=== PATIENT | female | born 1930 | race Caucasian/White ===

== ENCOUNTER 2016-11-22 | Outpatient (CLI) | payer MEDICARE, BC | END 2016-11-22 08:59 | disposition critical access hospital (66) | CPT/HCPCS: A0425; A0427 ==

== ENCOUNTER 2016-11-22 09:25 | Emergency (ER) | payer MEDICARE, BC ==
[2016-11-22] MEDS ORDERED: HYDROcod/ACETAM 5/325 MG TABLET PO STA (11:46)
== END 2016-11-22 13:20 | disposition home or self-care (01) ==
DX: S70.02XA Contusion of left hip, initial encounter (principal); W01.0XXA Fall on same level from slipping, tripping and stumbling without subsequent striking against object, initial encounter; Y92.012 Bathroom of single-family (private) house as the place of occurrence of the external cause; R32 Unspecified urinary incontinence; Z96.642 Presence of left artificial hip joint; I48.91 Unspecified atrial fibrillation; Z79.01 Long term (current) use of anticoagulants; I44.4 Left anterior fascicular block; R94.31 Abnormal electrocardiogram [ECG] [EKG]; I10 Essential (primary) hypertension; E78.00 Pure hypercholesterolemia, unspecified; Z86.73 Personal history of transient ischemic attack (TIA), and cerebral infarction without residual deficits; K21.9 Gastro-esophageal reflux disease without esophagitis; Z85.3 Personal history of malignant neoplasm of breast; M79.7 Fibromyalgia; M19.90 Unspecified osteoarthritis, unspecified site; M54.9 Dorsalgia, unspecified; G89.29 Other chronic pain

== ENCOUNTER 2016-12-20 15:24 | Emergency (ER) | payer MEDICARE, BC ==
[2016-12-20] MEDS ORDERED: oxyCOD/ACETAMIN 5 MG/325 MG TABLET PO STA (15:37)
[2016-12-20] MEDS ORDERED: oxyCOD/ACETAMIN 5 MG/325 MG TABLET PO ONE (15:42)
== END 2016-12-20 16:30 | disposition home or self-care (01) ==
DX: S42.251A Displaced fracture of greater tuberosity of right humerus, initial encounter for closed fracture (principal); W19.XXXA Unspecified fall, initial encounter; I48.91 Unspecified atrial fibrillation; Z79.01 Long term (current) use of anticoagulants; I10 Essential (primary) hypertension
CPT/HCPCS: 73060; 99283; A9270

== ENCOUNTER 2017-02-27 08:00 | Outpatient (CLI) | payer MEDICARE, BC | END 2017-02-27 08:01 | disposition home or self-care (01) | DX: N39.0 Urinary tract infection, site not specified (principal); R10.9 Unspecified abdominal pain ==

== ENCOUNTER 2017-03-12 13:41 | Outpatient (CLI) | payer MEDICARE, BC | END 2017-03-12 13:42 | disposition home or self-care (01) | DX: Z12.31 Encounter for screening mammogram for malignant neoplasm of breast (principal); Z85.3 Personal history of malignant neoplasm of breast; Z90.11 Acquired absence of right breast and nipple ==

== ENCOUNTER 2017-04-04 15:16 | Outpatient (CLI) | payer MEDICARE, BC ==
[2017-04-04 18:21] LABS: BILIRUBIN,URINE NEGATIVE (NEGATIVE); PH,URINE 6.5 PH (5.0-7.5)
[2017-04-04 18:41] LABS: ALBUMIN/GLOBULIN RATIO 1.2 (1.0-2.2); BILIRUBIN,TOTAL 0.7 mg/dL (0.2-1.0); CALCIUM 10.3 mg/dL (8.5-10.3); CREATININE 0.8 mg/dL (0.4-1.0); TOTAL PROTEIN 7.4 g/dL (6.7-8.2)
[2017-04-04 18:44] LABS: WBC,URINE 0-3 /HPF (0-5)
[2017-04-04 19:02] LABS: BASOPHILS # (AUTO) 0.1 10^3/uL (0.0-0.1); BASOPHILS % (AUTO) 1.6 %; EOSINOPHILS # (AUTO) 0.2 10^3/uL (0.0-0.7); EOSINOPHILS % (AUTO) 3.5 %; HCT - HEMATOCRIT 34.2 % (37.0-47.0); LYMPHOCYTES # (AUTO) 0.8 10^3/uL (1.5-3.5); LYMPHOCYTES % (AUTO) 18.5 %; MEAN CORPUSCULAR HGB CONC 32.3 g/dL (32.0-36.0); MEAN CORPUSCULAR VOLUME 102.1 fL (81.0-99.0); MONOCYTES % (AUTO) 21.2 %; NEUTROPHILS # (AUTO) 2.5 10^3/uL (1.5-6.6); NEUTROPHILS % (AUTO) 55.2 %; NUCLEATED RED BLOOD CELLS AUTO 0.5 /100WBC; RED BLOOD COUNT 3.35 10^6/uL (4.20-5.40); RED CELL DISTRIBUTION WIDTH 16.7 % (12.0-15.0); UNCORRECTED WHITE BLOOD COUNT 4.5 x10^3/uL; WHITE BLOOD COUNT 4.5 x10^3/uL (4.8-10.8)
== END 2017-04-04 15:17 | disposition home or self-care (01) ==
LOC: LAB.F 15:16
PROVIDERS: ATTEND Internal Medicine
DX: R10.9 Unspecified abdominal pain (principal)
CPT/HCPCS: 36415; 80053; 81001; 83690; 85025; 87086

== ENCOUNTER 2017-04-11 15:35 | Outpatient (CLI) | payer MEDICARE, BC ==
[2017-04-11 18:15] LABS: IMMATURE RETIC FRACTION 0.6; RED BLOOD COUNT 3.15 10^6/uL (4.20-5.40)
[2017-04-11 18:55] LABS: FERRITIN 113.3 ng/mL (11.0-306.8)
[2017-04-11 19:07] LABS: THYROID STIMULATING HORMONE 0.63 uIU/mL (0.34-5.60)
== END 2017-04-11 15:36 ==
LOC: LAB.F 15:35
PROVIDERS: ATTEND Internal Medicine
DX: D64.9 Anemia, unspecified (principal); R53.83 Other fatigue
CPT/HCPCS: 36415; 82607; 82728; 82746; 84443; 85044

== ENCOUNTER 2017-04-15 12:25 | Outpatient (CLI) | payer MEDICARE, BC | END 2017-04-15 12:26 | disposition critical access hospital (66) | DX: R05 Cough (principal) | CPT/HCPCS: A0425; A0427 ==

== ENCOUNTER 2017-04-15 12:50 | Inpatient (IN) | payer MEDICARE, BC ==
[2017-04-15] MEDS ORDERED: diltiaZEM INJ 5 MG/ML VIAL IVP STA ×2 (13:38→16:34)
[2017-04-15] MEDS ORDERED: diltiaZEM INJ 5 MG/ML VIAL ONE (13:41)
[2017-04-15] MEDS ORDERED: SODIUM CHLORIDE 0.9% 1,000 ML IV ONE ×2 (13:46→16:33)
[2017-04-15 13:49] LABS: BASOPHILS % (AUTO) 0.3 %; HGB - HEMOGLOBIN 9.4 g/dL (12.0-16.0); MEAN PLATELET VOLUME 10.5 fL (7.9-10.8); MONOCYTES # (AUTO) 3.1 10^3/uL (0.0-1.0); UNCORRECTED WHITE BLOOD COUNT 12.9 x10^3/uL; WHITE BLOOD COUNT 12.9 x10^3/uL (4.8-10.8)
[2017-04-15 13:53] LABS: EOSINOPHILS % (AUTO) 0.1 %; HCT - HEMATOCRIT 27.9 % (37.0-47.0); LYMPHOCYTES # (AUTO) 0.7 10^3/uL (1.5-3.5); LYMPHOCYTES % (AUTO) 5.6 %; MEAN CORPUSCULAR HEMOGLOBIN 33.8 pg (27.0-31.0); MEAN CORPUSCULAR HGB CONC 33.6 g/dL (32.0-36.0); MEAN CORPUSCULAR VOLUME 100.7 fL (81.0-99.0); NUCLEATED RED BLOOD CELLS AUTO 0.9 /100WBC; RED BLOOD COUNT 2.77 10^6/uL (4.20-5.40); RED CELL DISTRIBUTION WIDTH 16.2 % (12.0-15.0)
[2017-04-15 14:04] LABS: BILIRUBIN,TOTAL 1.5 mg/dL (0.2-1.0); CALCIUM 9.5 mg/dL (8.5-10.3); CREATININE 0.9 mg/dL (0.4-1.0); TOTAL PROTEIN 6.4 g/dL (6.7-8.2)
--- NOTE | 2017-04-15 14:05 | ED Physician Documentation ---
History of Present Illness - Stated complaint Stated Complaint: WEAKNESS - Chief complaint Chief Complaint: General - History obtained from History obtained from: Patient - History of Present Illness Timing: How many days ago (4) - Additonal information Additional information: The patient is a very pleasant 87-year-old female who presents with cough, shortness of breath, and generalized weakness that has been getting progressively worse over the past 4 days. She describes chest heaviness for about 2 weeks. She has noticed rapid heart rate with palpitations, with heart rate in the 140s. She denies fever. She had an episode of vomiting yesterday after coughing. Her past medical history is significant for atrial fibrillation and for TIA. She is not on anticoagulation medication. She has history of breast cancer for which she is status post right mastectomy, chemotherapy and radiation therapy. She also has a history of melanoma. Social history is significant in that her 2 months ago. She lives alone, and cares for her animals. Review of Systems Constitutional: reports: Fatigue. denies: Fever Ears: denies: Tinnitus/ringing Nose: denies: Congestion Throat: denies: Sore throat Cardiac: reports: Chest pain / pressure, Palpitations Respiratory: reports: Dyspnea, Cough GI: reports: Vomiting (occasionally after coughing.). denies: Abdominal Pain, Nausea : denies: Dysuria, Frequency Skin: denies: Rash Musculoskeletal: denies: Back pain, Extremity pain Neurologic: reports: Generalized weakness. denies: Focal weakness, Numbness, Headache PD PAST MEDICAL HISTORY - Past Medical History Past Medical History: Yes Cardiovascular: Hypertension, High cholesterol, Atrial fibrillation Respiratory: None Neuro: CVA, Headache/migraine Endocrine/Autoimmune: Other GI: GERD, Hemorrhoids PRODUCTION FLOATER: Breast cancer : Incontinence, Frequency HEENT: None Psych: Depression Musculoskeletal: Osteoarthritis, Fibromyalgia, Chronic back pain Derm: Rosacea - Past Surgical History Past Surgical History: Yes General: Colonoscopy, EGD Ortho: Hip replacement, Knee replacement, Other /PRODUCTION FLOATER: Hysterectomy, Mastectomy HEENT: Cataracts, Rhinoplasty - Present Medications Home Medications: Ambulatory Orders Medication Instructions Recorded Confirmed Furosemide 20 mg PO DAILY 07/10/14 04/15/17 Levothyroxine Sodium [Levoxyl] 125 mcg PO DAILY 07/10/14 04/15/17 Metoprolol Succinate [Toprol Xl] 100 mg PO DAILY 07/10/14 04/15/17 Zolpidem Tartrate 5 - 7.5 mg PO DAILY PRN 07/10/14 04/15/17 Cholecalciferol (Vitamin D3) 5,000 unit PO DAILY 02/03/15 04/15/17 [Vitamin D3] Vitamin B Complex 1 cap PO DAILY 02/03/15 04/15/17 Acetaminophen [Tylenol] 650 mg PO QID tablet 09/18/16 04/15/17 Calcium Carbonate [Tums (Calcium 500 mg PO BID PRN #0 tablet 09/18/16 04/15/17 Carbonate 500mg)] - Allergies Allergies/Adverse Reactions: Allergies Allergy/AdvReac Type Severity Reaction Status Date / Time aspirin Allergy Unknown Verified 11/22/16 09:32 sulfadiazine [Sulfadiazine] Allergy Hives Verified 11/22/16 09:32 oxycodone HCl * AdvReac Mild Nausea Verified 11/22/16 09:32 [From Percocet] - Living Situation Living Situation: reports: Alone Living Arrangement: reports: At home - Social History Does the pt smoke?: No Smoking Status: Never smoker Does the pt drink ETOH?: Yes Does the pt have substance abuse?: No - Immunizations Immunizations are current?: Yes - POLST Patient has POLST: No PD ED PE NORMAL - Vitals Vital signs reviewed: Yes (Tachycardic in the 140s.) - General General: Alert and oriented X 3, Well developed/nourished - HEENT HEENT: Atraumatic, EOMI, Pharynx benign - Neck Neck: No adenopathy, No JVD - Cardiac Cardiac: Other (Rapid rate, irregularly irregular rhythm.) - Respiratory Respiratory: Clear bilaterally - Abdomen Abdomen: Soft, Other (Mild tenderness to palpation across the lower abdomen. No rebound tenderness or guarding.) - Back Back: No CVA TTP - Derm Derm: No rash - Extremities Extremities: No edema, No calf tenderness / cord - Neuro Neuro: Alert and oriented X 3, No motor deficit, Normal speech Results - Vitals Vitals: Vital Signs - 24 hr 04/15/17 04/15/17 04/15/17 12:55 13:35 13:44 Temperature 36.6 C Heart Rate 149 H 142 H 153 H Respiratory 18 16 16 Rate Blood Pressure 109/63 98/59 L 104/66 O2 Saturation 97 96 04/15/17 04/15/17 04/15/17 13:50 13:58 14:03 Temperature Heart Rate 112 H 121 H 123 H Respiratory 16 16 16 Rate Blood Pressure 98/61 93/57 L 102/70 O2 Saturation 94 04/15/17 04/15/17 04/15/17 14:30 14:45 16:41 Temperature Heart Rate 119 H 120 H 107 H Respiratory 16 16 16 Rate Blood Pressure 107/63 108/76 99/61 O2 Saturation 97 96 95 04/15/17 04/15/17 04/15/17 16:47 16:54 17:57 Temperature Heart Rate 103 H 115 H 117 H Respiratory 16 18 16 Rate Blood Pressure 96/50 L 96/50 L 105/60 O2 Saturation 96 97 04/15/17 04/15/17 04/15/17 18:45 19:51 19:55 Temperature Heart Rate 115 H 129 H 116 H Respiratory 16 18 18 Rate Blood Pressure 118/74 138/78 H 131/72 H O2 Saturation 98 96 98 04/15/17 04/15/17 20:14 20:47 Temperature 36.2 C L Heart Rate 135 H 130 H Respiratory 16 16 Rate Blood Pressure 127/80 128/81 H O2 Saturation 97 98 Oxygen O2 Source Nasal cannula - EKG (time done) 13:08 Rate: Rate (enter#) (147) Rhythm: Atrial fibrillation [place]: LAD QRS: LVH Ischemia: Q waves (in anterior precordial leads V2 through V3, consistent with old anterior IA.) Compare to prior EKG: Changed from prior EKG (Compared to prior tracing of 11/22, the rate is now much faster.) Computer interpretation: Agree with computer - Labs Labs: Laboratory Tests 04/15/17 04/15/17 04/15/17 13:02 13:02 13:02 WBC 12.9 H RBC 2.77 L Hgb 9.4 L Hct 27.9 L MCV 100.7 H MCH 33.8 H MCHC 33.6 RDW 16.2 H Plt Count 126 L MPV 10.5 Neut # 9.0 H Lymph # 0.7 L [place] # 3.1 H Eos # 0.0 Baso # 0.0 Absolute Nucleated RBC 0.12 Band Neuts % (Manual) Not Reportable Nucleated RBCs 0.9 Differential Comment MANUAL=AUTO DIFF Platelet Estimate DECREASED (<130,000) RBC Morph Micro Appear 1+ POLYCHROMASIA Sodium 131 L Potassium 4.0 Chloride 98 L Carbon Dioxide 24 Anion Gap 9.0 BUN 17 Creatinine 0.9 Estimated GFR (MDRD) 60 L Glucose 118 H Calcium 9.5 Iron TIBC % Saturation Transferrin Total Bilirubin 1.5 H AST 32 ALT 24 Alkaline Phosphatase 75 Troponin I 0.05 B-Natriuretic Peptide Total Protein 6.4 L Albumin 3.2 Globulin 3.2 Albumin/Globulin Ratio 1.0 Lipase 126 H Vitamin B12 Folate TSH Urine Color Urine Clarity Urine pH Ur Specific [place] Urine Protein Urine Glucose (UA) Urine Ketones Urine Occult Blood Urine Nitrite Urine Bilirubin Urine Urobilinogen Ur Leukocyte Esterase Urine RBC Urine WBC Ur Epithelial Cells Ur Squamous Epith Cells Urine Bacteria Urine Casts Ur Microscopic Review Urine Culture Comments 04/15/17 04/15/17 04/15/17 13:02 13:02 13:02 WBC RBC Hgb Hct MCV MCH MCHC RDW Plt Count MPV Neut # Lymph # [place] # Eos # Baso # Absolute Nucleated RBC Band Neuts % (Manual) Nucleated RBCs Differential Comment Platelet Estimate RBC Morph Micro Appear Sodium Potassium Chloride Carbon Dioxide Anion Gap BUN Creatinine Estimated GFR (MDRD) Glucose Calcium Iron 23 L TIBC 232 L % Saturation 10 L Transferrin 166 L Total Bilirubin AST ALT Alkaline Phosphatase Troponin I B-Natriuretic Peptide 342 H Total Protein Albumin Globulin Albumin/Globulin Ratio Lipase Vitamin B12 756 Folate 38.00 TSH 3.36 Urine Color Urine Clarity Urine pH Ur Specific [place] Urine Protein Urine Glucose (UA) Urine Ketones Urine Occult Blood Urine Nitrite Urine Bilirubin Urine Urobilinogen Ur Leukocyte Esterase Urine RBC Urine WBC Ur Epithelial Cells Ur Squamous Epith Cells Urine Bacteria Urine Casts Ur Microscopic Review Urine Culture Comments 04/15/17 15:32 WBC RBC Hgb Hct MCV MCH MCHC RDW Plt Count MPV Neut # Lymph # [place] # Eos # Baso # Absolute Nucleated RBC Band Neuts % (Manual) Nucleated RBCs Differential Comment Platelet Estimate RBC Morph Micro Appear Sodium Potassium Chloride Carbon Dioxide Anion Gap BUN Creatinine Estimated GFR (MDRD) Glucose Calcium Iron TIBC % Saturation Transferrin Total Bilirubin AST ALT Alkaline Phosphatase Troponin I B-Natriuretic Peptide Total Protein Albumin Globulin Albumin/Globulin Ratio Lipase Vitamin B12 Folate TSH Urine Color DARK YELLOW Urine Clarity CLEAR Urine pH 6.0 Ur Specific [place] 1.015 Urine Protein TRACE Urine Glucose (UA) NEGATIVE Urine Ketones NEGATIVE Urine Occult Blood NEGATIVE Urine Nitrite NEGATIVE Urine Bilirubin NEGATIVE Urine Urobilinogen 0.2 (NORMAL) Ur Leukocyte Esterase SMALL H Urine RBC 0-5 Urine WBC 0-3 Ur Epithelial Cells FEW Transitional Ur Squamous Epith Cells FEW Squamous Urine Bacteria Rare Urine Casts 3-5 Hyaline Casts Ur Microscopic Review INDICATED Urine Culture Comments INDICATED - Rads (name of study) 1-view CXR Radiology: Prelim report reviewed, EMP read contemporaneously, See rad report (1 ) Patchy right upper lobe densities, differential including patchy pneumonia, edema, or pneumonitis. 2) Developing mild basilar interstitial edema versus airways inflammation.) CT abd/pelvis Radiology: Prelim report reviewed, EMP read contemporaneously, See rad report (1 ) Bilateral extensive airspace disease and nodularity. Differential considerations included bilateral nodular pneumonia versus pulmonary metastatic disease. 2) Small left pleural effusion. 3) Hepatomegaly with steatosis of the liver. 4) Subacute-appearing mild to moderate L2 wedging compression fracture is new compared to 05/03/2016.) PD MEDICAL DECISION MAKING - ED course Complexity details: reviewed old records, reviewed results, re-evaluated patient , considered differential, d/w patient, d/w vendor management consultant ED course: The patient's presentation is significant for bilateral pneumonia versus metastatic lung disease. Her white blood cell count is mildly elevated at 12.9. Chest x-ray reveals new patchy right upper lobe densities. CT scan reveals new extensive bilateral airspace disease and nodularity, consistent with bilateral pneumonia versus metastatic cancer. She has history of chronic atrial fibrillation, but her ventricular rate is normally controlled with metoprolol. She has persistent tachycardia in the emergency department, and her history suggests several days of tachycardia. Cardiac enzymes are negative. Treatment in the emergency department included administration of diltiazem 10 mg IV x2, and Lopressor 5 mg IV x2. Her heart rate would diminish into the 100- 120 range, but at no point was it sustained below 100. 2 L normal saline were administered IV. Ceftriaxone 1 g was administered IV. I discussed her condition with Dr. Mejias who evaluated her in the emergency department and admitted her to the ICU for further evaluation and treatment. Departure - Departure Disposition: 66 [facility] DC/Xfer Clinical Impression: Atrial fibrillation with rapid ventricular response, History of breast cancer Pneumonia Qualifiers: Pneumonia type: due to unspecified organism Laterality: bilateral Lung location : unspecified part of lung Qualified Code(s): J18.9 - Pneumonia, unspecified organism Anemia Qualifiers: Anemia type: unspecified type Qualified Code(s): D64.9 - Anemia, unspecified Condition: Stable Discharge Date/Time: 04/15/17 21:43
--- NOTE | 2017-04-15 14:30 | XRAY Preliminary Report ---
Exam: XR Chest 1 View IMPRESSION: 1. New patchy right upper lobe densities, differential including patchy pneumonia, edema or pneumonit is. 2. Developing mild basilar interstitial edema versus airways inflammation. [facility] SITE ID: [id number]
--- NOTE | 2017-04-15 14:32 | XRAY Report ---
EXAM: CHEST RADIOGRAPHY EXAM DATE: 04/15/2017 02:21 PM. CLINICAL HISTORY: Chest pain. COMPARISON: 09/14/2016.. TECHNIQUE: 1 view. FINDINGS: Lungs/Pleura: There are patchy hazy opacities in the right upper lobe without consolidation. Bilatera l interstitial densities appear similar. Mild left basilar curly B lines are new. Mediastinum: Heart size is borderline. Left chest Port-A-Cath tip overlies low SVC. Other: None. IMPRESSION: 1. New patchy right upper lobe densities, differential including patchy pneumonia, edema or pneumonit is. 2. Developing mild basilar interstitial edema versus airways inflammation. [facility] Referring Provider Line: [phone] SITE ID: [id number]
[2017-04-15 14:34] LABS: PLATELET ESTIMATE, MANUAL DECREASED (<130,000) (NORMAL)
[2017-04-15 14:35] LABS: NP AUTO DIFFERENTIAL? NO; NP MAN DIFFERENTIAL? YES
[2017-04-15 15:53] LABS: BILIRUBIN,URINE NEGATIVE (NEGATIVE)
[2017-04-15 16:28] LABS: UA w/ MICROSCOPIC CHARGE YES
[2017-04-15 16:39] LABS: WBC,URINE 0-3 /HPF (0-5)
[2017-04-15 16:40] LABS: UR CULTURE IF IND INDICATED
[2017-04-15] MEDS: IOPAMIDOL-300 100 ML VIAL IVP ONE (17:21)
--- NOTE | 2017-04-15 17:47 | CT Preliminary Report ---
Exam: CT Abdomen/Pelvis W/ IMPRESSION: 1. New bilateral extensive airspace disease and nodularity. Differential considerations include a charity ateral nodular pneumonia versus pulmonary metastatic disease. 2. Small left pleural effusion. 3. Hepatomegaly with steatosis of the liver. 4. Subacute appearing mild to moderate L2 wedging compression fracture is new compared to 05/03/2016. [facility] SITE ID: [id number]
--- NOTE | 2017-04-15 17:50 | CT Report ---
EXAM: CT ABDOMEN AND PELVIS EXAM DATE: 04/15/2017 05:25 PM. CLINICAL HISTORY: Abdominal pain. Melanoma and breast cancer. COMPARISONS: 05/03/2016. TECHNIQUE: Routine helical CT imaging was performed through the abdomen and pelvis. IV contrast: 100 cc Isovue-300 IV. Enteric contrast: No. Reconstructions: Coronal and sagittal. In accordance with CT protocol optimization, one or more of the following dose reduction techniques w ere utilized for this exam: automated exposure control, adjustment of mA and/or KV based on patient s ize, or use of iterative reconstructive technique. FINDINGS: Lung Bases: There are multiple patchy bilateral nodules and groundglass densities. These are new sinc e previous. There is a more focal area of pulmonary consolidation in the medial left lower lobe. Ther e is a small left pleural effusion. Liver: The liver is enlarged and measures 20.8 cm craniocaudal. Liver parenchyma is low in density. Gallbladder/Bile Ducts: The gallbladder is contracted. Spleen: Normal. Pancreas: Normal. Adrenal Glands: Normal. Kidneys: Normal. No masses or hydronephrosis. Peritoneal Cavity/Bowel: There is a small volume of free fluid in the pelvis. No abscess. No dilated bowel or signs of obstruction. Negative for lymphadenopathy. Pelvic Organs: Urinary bladder is unremarkable but partially obscured by metal from left hip prosthes is. Vasculature: No aneurysms or other significant abnormality. Bones: There is a [id number] wedging compression fracture of L2 which is new since previous. No surrounding hematoma. There is sclerosis of the L2 vertebral body. Other: None. IMPRESSION: 1. New bilateral extensive airspace disease and nodularity. Differential considerations include a charity ateral nodular pneumonia versus pulmonary metastatic disease. 2. Small left pleural effusion. 3. Hepatomegaly with steatosis of the liver. 4. Subacute appearing mild to moderate L2 wedging compression fracture is new compared to 05/03/2016. [facility] Referring Provider Line: [phone] SITE ID: [id number]
[2017-04-15] MEDS ORDERED: METOPROLOL 5 MG/5 ML VIAL IVP STA ×2 (19:25→20:11)
[2017-04-15] MEDS ORDERED: cefTRIAXone 1 GM in SODIUM CHLORIDE 0.9% MINIBAG 100 ML IV STA (19:25)
[2017-04-15] MEDS ORDERED: METOPROLOL 5 MG/5 ML VIAL IVP ONE ×2 (19:39→20:10)
[2017-04-15] MEDS ORDERED: cefTRIAXone 1 GM VIAL ONE (19:39)
[2017-04-15] MEDS ORDERED: ONDANSETRON ODT 4 MG TABLET TL PRN (20:59)
[2017-04-15] MEDS ORDERED: ALBUTEROL NEB 2.5 MG/3 ML INH PRN (20:59)
[2017-04-15] MEDS ORDERED: SODIUM CHLORIDE 0.9% 1,000 ML IV SCH ×2 (21:00→23:00)
[2017-04-15] MEDS ORDERED: diltiaZEM INJ 5 MG/ML VIAL IVP PRN (21:11)
[2017-04-15] MEDS: diltiaZEM INJ 125 MG in DEXTROSE 5% 100 ML IV STA (22:02)
[2017-04-15] MEDS: ENOXAPARIN 60 MG/0.6 ML SYRINGE SUBQ SCH (22:06)
[2017-04-15] MEDS: SODIUM CHLORIDE FLUSH 0.9% 10 ML SYRINGE IVP SCH (22:08)
[2017-04-15 22:13] LABS: THYROID STIMULATING HORMONE 3.36 uIU/mL (0.34-5.60)
[2017-04-15 22:36] LABS: IRON 23 ug/dL (28-170); TOTAL IRON BINDING CAPACITY 232 ug/dL (250-450); TRANSFERRIN 166 mg/dL (192-382)
[2017-04-15] MEDS: ZOLPIDEM 5 MG TABLET PO PRN (22:36)
[2017-04-15] MEDS: BENZOCAINE/MENTHOL LOZENGE MM PRN (22:37)
[2017-04-16] MEDS: ACETAMINOPHEN 325 MG TABLET PO PRN ×3 (00:05→17:07)
[2017-04-16] MEDS: BENZONATATE 100 MG CAPSULE PO PRN ×3 (00:06→19:07)
[2017-04-16 05:02] LABS: BASOPHILS % (AUTO) 0.3 %; EOSINOPHILS % (AUTO) 0.1 %; HCT - HEMATOCRIT 29.2 % (37.0-47.0); HGB - HEMOGLOBIN 9.7 g/dL (12.0-16.0); LYMPHOCYTES # (AUTO) 0.6 10^3/uL (1.5-3.5); LYMPHOCYTES % (AUTO) 5.5 %; MEAN CORPUSCULAR HEMOGLOBIN 33.7 pg (27.0-31.0); MEAN CORPUSCULAR HGB CONC 33.2 g/dL (32.0-36.0); MEAN CORPUSCULAR VOLUME 101.4 fL (81.0-99.0); MEAN PLATELET VOLUME 10.2 fL (7.9-10.8); MONOCYTES # (AUTO) 2.2 10^3/uL (0.0-1.0); MONOCYTES % (AUTO) 19.6 %; NEUTROPHILS # (AUTO) 8.5 10^3/uL (1.5-6.6); NEUTROPHILS % (AUTO) 74.5 %; NUCLEATED RED BLOOD CELLS AUTO 0.6 /100WBC; RED BLOOD COUNT 2.88 10^6/uL (4.20-5.40); RED CELL DISTRIBUTION WIDTH 16.3 % (12.0-15.0); UNCORRECTED WHITE BLOOD COUNT 11.5 x10^3/uL; WHITE BLOOD COUNT 11.5 x10^3/uL (4.8-10.8)
[2017-04-16 05:10] LABS: CALCIUM 9.5 mg/dL (8.5-10.3); CREATININE 0.8 mg/dL (0.4-1.0); POTASSIUM 4.2 mmol/L (3.5-5.0); TOTAL PROTEIN 6.6 g/dL (6.7-8.2)
[2017-04-16 05:33] LABS: PLATELET ESTIMATE, MANUAL DECREASED (<130,000) (NORMAL); PLATELET MORPHOLOGY NORMAL APPEARANCE (NORMAL)
[2017-04-16] MEDS: SODIUM CHLORIDE FLUSH 0.9% 10 ML SYRINGE IVP SCH ×3 (06:04→21:16)
[2017-04-16] MEDS ORDERED: diltiaZEM INJ 5 MG/ML VIAL ONE (06:51)
[2017-04-16] MEDS: diltiaZEM INJ 125 MG in DEXTROSE 5% 100 ML IV STA (07:00)
--- NOTE | 2017-04-16 07:25 | PROVIDER PROGRESS NOTE ---
Assessment/Plan - Problem List (1) Atrial fibrillation with rapid ventricular response Assessment/Plan: Emilie is chronically on metoprolol 100 mgs. She is now requiring this and Diltiazem drip at max. Will continue to use the combo. Considering she has the pneumonia She has an inciting etiology. If not controlled in the next 24 hours will consider digoxin. She never restarted her Coumadin after her Hip fracture. (2) Pneumonia Qualifiers: Pneumonia type: due to unspecified organism Laterality: bilateral Lung location: unspecified part of lung Qualified Code(s): J18.9 - Pneumonia, unspecified organism Assessment/Plan: She has a CT of abd that reveals part of the lungs and shows a pneumonia but is suspicious for malignancy Will get a CT of the chest to better delineate today. - Current Meds Current Meds: Current Medications Generic Name Dose Route Start Last Admin Trade Name Freq PRN Reason Stop Dose Admin Acetaminophen 650 mg 04/15/17 20:59 04/16/17 00:05 Tylenol PO 650 mg Q4HR PRN Administration Pain 1 to 4 Benzonatate 100 mg 04/15/17 22:11 04/16/17 00:06 Tessalon PO 100 mg TID PRN Administration Cough Enoxaparin Sodium 60 mg 04/15/17 22:00 04/15/17 22:06 Lovenox SUBQ 60 mg BID MICHAEL Administration Diltiazem HCl 125 mg/ Dextrose 125 mls @ 5 mls/hr 04/15/17 21:10 04/16/17 07:00 IV 04/16/17 22:09 15 mls/hr TITR STA Administration Protocol 5 MG/HR Sodium Chloride 1,000 mls @ 0 mls/hr 04/15/17 23:00 04/15/17 22:34 Normal Saline 0.9% IV 1,000 mls/hr .Q0M MICHAEL Administration TKO Sodium Chloride 10 ml 04/15/17 22:00 04/16/17 06:04 Normal Saline Flush 0.9% IVP Not Given Q8HR MICHAEL Throat Lozenges 1 lozenge 04/15/17 22:11 04/15/17 22:37 Cepacol MM 1 lozenge Q2HR PRN Administration Mouth Sore Pain Zolpidem Tartrate 5 mg 04/15/17 21:04 04/15/17 22:36 Ambien PO 5 mg DAILY PRN Administration Insomnia - Lab Result [place] Diagrams: 04/16/17 04:45 04/16/17 04:45 Subjective - Subjective Patient Reports: Resting Comfortably, Cough, Fatigue Nursing Reports: No Complaints Objective Vital Signs: Vital Signs - 24 hr 04/15/17 04/15/17 04/15/17 21:12 21:50 21:55 Temperature 37.4 C Heart Rate 133 H 132 H Heart Rate [ 134 H Monitoring electrodes] Respiratory 18 30 H 28 H Rate Blood Pressure 138/84 H Blood Pressure 131/75 H [Left Brachial artery] O2 Saturation 98 99 04/15/17 04/15/17 04/16/17 22:02 23:05 00:00 Temperature Heart Rate Heart Rate [ 133 H 123 H Monitoring electrodes] Respiratory 30 H 28 H Rate Blood Pressure 131/75 H Blood Pressure 132/85 H 136/80 H [Left Brachial artery] O2 Saturation 93 96 04/16/17 04/16/17 04/16/17 01:00 02:00 03:00 Temperature Heart Rate Heart Rate [ 115 H 117 H 113 H Monitoring electrodes] Respiratory 39 H 36 H 27 H Rate Blood Pressure Blood Pressure 126/64 119/70 114/73 [Left Brachial artery] O2 Saturation 97 97 97 04/16/17 04/16/17 04/16/17 04:00 04:49 05:00 Temperature 36.9 C Heart Rate Heart Rate [ 116 H 117 H 118 H Monitoring electrodes] Respiratory 28 H 32 H 29 H Rate Blood Pressure Blood Pressure 111/72 120/78 116/74 [Left Brachial artery] O2 Saturation 97 98 99 04/16/17 06:00 Temperature Heart Rate Heart Rate [ 113 H Monitoring electrodes] Respiratory 32 H Rate Blood Pressure Blood Pressure 124/79 [Left Brachial artery] O2 Saturation 99 Oxygen O2 Source Nasal cannula I&O (Last 24 Hrs): Intake and Output Totals x24h 04/14/17 04/15/17 04/16/17 23:59 23:59 23:59 Intake Total 35 707 Output Total 200 Balance 35 507 General: Alert, Oriented x3, Cooperative HEENT: PERRLA, EOMI Neck: No JVD, No thyromegaly Neuro: Alert, Oriented Times 3 Cardiovascular: Other (A fib with RVR) Respiratory: No respiratory distress, Breath sounds nml Abdomen: Soft, No tenderness Extremities: No cyanosis, No edema Skin: No rashes, No breakdown - Results Results: Laboratory Results WBC 11.5 x10^3/uL (4.8-10.8) H 04/16/17 04:45 RBC 2.88 10^6/uL (4.20-5.40) L 04/16/17 04:45 Hgb 9.7 g/dL (12.0-16.0) L 04/16/17 04:45 Hct 29.2 % (37.0-47.0) L 04/16/17 04:45 MCV 101.4 fL (81.0-99.0) H 04/16/17 04:45 MCH 33.7 pg (27.0-31.0) H 04/16/17 04:45 MCHC 33.2 g/dL (32.0-36.0) 04/16/17 04:45 RDW 16.3 % (12.0-15.0) H 04/16/17 04:45 Plt Count 125 10^3/uL (130-450) L 04/16/17 04:45 MPV 10.2 fL (7.9-10.8) 04/16/17 04:45 Neut # 8.5 10^3/uL (1.5-6.6) H 04/16/17 04:45 Lymph # 0.6 10^3/uL (1.5-3.5) L 04/16/17 04:45 [place] # 2.2 10^3/uL (0.0-1.0) H 04/16/17 04:45 Eos # 0.0 10^3/uL (0.0-0.7) 04/16/17 04:45 Baso # 0.0 10^3/uL (0.0-0.1) 04/16/17 04:45 Absolute Nucleated RBC 0.07 x10^3/uL 04/16/17 04:45 Band Neuts % (Manual) Not Reportable 04/15/17 13:02 Nucleated RBCs 0.6 /100WBC 04/16/17 04:45 Differential Comment MANUAL=AUTO DIFF 04/15/17 13:02 Manual Slide Review Indicated 04/16/17 04:45 Platelet Estimate DECREASED (<130,000) (NORMAL) 04/16/17 04:45 Platelet Morphology NORMAL APPEARANCE (NORMAL) 04/16/17 04:45 RBC Morph Micro Appear 1+ ANISOCYTOSIS (NORMAL) 1+ POLYCHROMASIA (NORMAL) 04/15/17 13:02 RBC Morph Micro Appear 2+ STOMATOCYTES (NORMAL) 1+ POLYCHROMASIA (NORMAL) 1+ ANISOCYTOSIS (NORMAL) 04/16/17 04:45 RBC Morph Micro Appear 2+ STOMATOCYTES (NORMAL) 1+ POLYCHROMASIA (NORMAL) 1+ ANISOCYTOSIS (NORMAL) 04/16/17 04:45 RBC Morph Micro Appear 2+ STOMATOCYTES (NORMAL) 1+ POLYCHROMASIA (NORMAL) 1+ ANISOCYTOSIS (NORMAL) 04/16/17 04:45 Sodium 133 mmol/L (135-145) L 04/16/17 04:45 Potassium 4.2 mmol/L (3.5-5.0) 04/16/17 04:45 Chloride 100 mmol/L (101-111) L 04/16/17 04:45 Carbon Dioxide 24 mmol/L (21-32) 04/16/17 04:45 Anion Gap 9.0 (6-13) 04/16/17 04:45 BUN 15 mg/dL (6-20) 04/16/17 04:45 Creatinine 0.8 mg/dL (0.4-1.0) 04/16/17 04:45 Estimated GFR (MDRD) 68 (>89) L 04/16/17 04:45 Glucose 137 mg/dL (70-100) H 04/16/17 04:45 Calcium 9.5 mg/dL (8.5-10.3) 04/16/17 04:45 Iron 23 ug/dL (28-170) L 04/15/17 13:02 TIBC 232 ug/dL (250-450) L 04/15/17 13:02 % Saturation 10 % (20-50) L 04/15/17 13:02 Transferrin 166 mg/dL (192-382) L 04/15/17 13:02 Total Bilirubin 1.0 mg/dL (0.2-1.0) 04/16/17 04:45 AST 53 IU/L (10-42) H 04/16/17 04:45 ALT 40 IU/L (10-60) 04/16/17 04:45 Alkaline Phosphatase 105 IU/L (42-121) 04/16/17 04:45 Troponin I 0.05 ng/mL (<0.49) 04/15/17 13:02 B-Natriuretic Peptide 342 pg/mL (5-100) H 04/15/17 13:02 Total Protein 6.6 g/dL (6.7-8.2) L 04/16/17 04:45 Albumin 3.3 g/dL (3.2-5.5) 04/16/17 04:45 Globulin 3.3 g/dL (2.1-4.2) 04/16/17 04:45 Albumin/Globulin Ratio 1.0 (1.0-2.2) 04/16/17 04:45 Lipase 126 U/L (22-51) H 04/15/17 13:02 Vitamin B12 756 pg/mL (180-914) 04/15/17 13:02 Folate 38.00 ng/mL (5.90 - >24.8) 04/15/17 13:02 TSH 3.36 uIU/mL (0.34-5.60) 04/15/17 13:02 Urine Color DARK YELLOW 04/15/17 15:32 Urine Clarity CLEAR (CLEAR) 04/15/17 15:32 Urine pH 6.0 PH (5.0-7.5) 04/15/17 15:32 Ur Specific [place] 1.015 (1.002-1.030) 04/15/17 15:32 Urine Protein TRACE mg/dL (NEGATIVE) 04/15/17 15:32 Urine Glucose (UA) NEGATIVE mg/dL (NEGATIVE) 04/15/17 15:32 Urine Ketones NEGATIVE mg/dL (NEGATIVE) 04/15/17 15:32 Urine Occult Blood NEGATIVE (NEGATIVE) 04/15/17 15:32 Urine Nitrite NEGATIVE (NEGATIVE) 04/15/17 15:32 Urine Bilirubin NEGATIVE (NEGATIVE) 04/15/17 15:32 Urine Urobilinogen 0.2 (NORMAL) E.U./dL (NORMAL) 04/15/17 15:32 Ur Leukocyte Esterase SMALL (NEGATIVE) H 04/15/17 15:32 Urine RBC 0-5 /HPF (0-5) 04/15/17 15:32 Urine WBC 0-3 /HPF (0-5) 04/15/17 15:32 Ur Epithelial Cells FEW Transitional /HPF (<= Few) 04/15/17 15:32 Ur Squamous Epith Cells FEW Squamous (<= Few) 04/15/17 15:32 Urine Bacteria Rare /HPF (None Seen) 04/15/17 15:32 Urine Casts 3-5 Hyaline Casts /LPF 04/15/17 15:32 Ur Microscopic Review INDICATED 04/15/17 15:32 Urine Culture Comments INDICATED 04/15/17 15:32 - Procedures Procedures: Procedures COLONOSCOPY (02/03/15) EXCISION OF RIGHT AXILLARY LYMPHATIC, OPEN APPROACH, DIAGN (04/04/16) INSERTION OF INFUSION DEV INTO SUP VENA CAVA, PERC APPROACH (05/02/16) INSERTION OF VAD INTO CHEST SUBCU/FASCIA, PERC APPROACH (05/02/16) REPLACE L HIP JT W METAL ON POLY, UNCEMENT, OPEN (09/14/16) RESECTION OF RIGHT BREAST, OPEN APPROACH (04/04/16) TRANSFUSE NONAUT FROZEN PLASMA IN PERIPH VEIN, PERC (09/14/16)
[2017-04-16 07:48] LABS: MAGNESIUM 1.8 mg/dL (1.7-2.8); PHOSPHORUS 2.7 mg/dL (2.5-4.6)
[2017-04-16] MEDS ORDERED: LEVOTHYROXINE 125 MCG TABLET PO SCH (09:00)
[2017-04-16] MEDS ORDERED: diltiaZEM INJ 125 MG in DEXTROSE 5% 100 ML IV SCH (09:17)
[2017-04-16] MEDS: AZITHROMYCIN INJ 500 MG in SODIUM CHLORIDE 0.9% 250 ML IV SCH (09:26)
[2017-04-16] MEDS: ENOXAPARIN 60 MG/0.6 ML SYRINGE SUBQ SCH ×2 (09:38→21:16)
[2017-04-16] MEDS: CHOLECALCIFEROL 5,000 UNIT CAPSULE PO SCH (09:38)
[2017-04-16] MEDS: FAMOTIDINE 20 MG TABLET PO SCH (09:39)
[2017-04-16] MEDS: METOPROLOL SUCCINATE 50 MG TABLET PO SCH (09:39)
[2017-04-16] MEDS: CALCIUM CARBONATE CHEW 500 MG TABLET PO PRN (09:40)
[2017-04-16] MEDS: LEVOTHYROXINE 125 MCG TABLET PO SCH (12:31)
[2017-04-16] MEDS: IOPAMIDOL-300 100 ML VIAL IVP ONE (13:30)
--- NOTE | 2017-04-16 14:24 | CT Report ---
EXAM: CT CHEST EXAM DATE: 04/16/2017 01:43 PM. CLINICAL HISTORY: Chest pain. Infiltrates suspicious for cancer on abdominal CT. COMPARISONS: Abdomen and pelvis CT 04/07/2017, chest x-ray 04/15/[address] 09/14/2016. TECHNIQUE: Routine helical CT imaging was performed through the chest. IV contrast: 100 cc Isovue-300. Reconstru ctions: Coronal and sagittal. In accordance with CT protocol optimization, one or more of the following dose reduction techniques w ere utilized for this exam: automated exposure control, adjustment of mA and/or KV based on patient s ize, or use of iterative reconstructive technique. FINDINGS: Lungs/Pleura: There are trace bilateral pleural effusions layering within the dependent portion of th e hemithoraces. There are prominent bilateral groundglass opacities as well as slightly more consolid ative areas of airspace disease diffusely seen within both lungs. There is mild interlobular septal t hickening within the lung bases. Some of these areas have a mild nodular component although predomina ntly this appears to represent more alveolar consolidation. Note is made of some linear scarring and slight bronchiectasis within the lingula. Mediastinum: Left-sided Port-A-Cath is demonstrated extending to the distal superior vena cava. Preca rinal lymph node measures up to 14 mm, similar to the prior examination. Subcarinal lymph node measur es 13 mm, no change. No pericardial effusion. Mild coronary atherosclerosis with calcification of the mitral annulus. Mild calcification thoracic aorta. Bones: Mild compression deformity of L2, partially included in the examination with loss of height le ss than 25%. Visualized Abdomen: Unremarkable. Other: Status post right mastectomy. IMPRESSION: 1. Trace bilateral pleural effusions with a mixture of groundglass opacities and alveolar consolidati on. Appearance would favor a bilateral pneumonitis or bronchopneumonia. As this is visible radiograph ically, follow-up radiographs recommended in 6-8 weeks to document clearance. If there is failure of this process to resolve during that time period, repeat CT scan would be indicated for reassessment. 2. Mild mediastinal adenopathy although unchanged from the August 2016 examination. 3. Status post right mastectomy. 4. Mild lingular scarring and bronchiectasis. [facility] Referring Provider Line: [phone] SITE ID: [id number]
[2017-04-16] MEDS: BENZOCAINE/MENTHOL LOZENGE MM PRN ×3 (17:07→23:56)
[2017-04-16] MEDS: diltiaZEM 30 MG TABLET PO SCH ×2 (19:07→23:50)
[2017-04-16] MEDS: [UNRECOGNIZED DRUG - OTHER] PO SCH (19:09)
[2017-04-16] MEDS ORDERED: POLYETHYLENE GLYCOL 3350 17 GM PACKET PO SCH (19:33)
[2017-04-16] MEDS: cefTRIAXone 2 GM in SODIUM CHLORIDE 0.9% MINIBAG 100 ML IV SCH (19:45)
[2017-04-16] MEDS: SODIUM CHLORIDE FLUSH 0.9% 10 ML SYRINGE IVP PRN (19:45)
[2017-04-16] MEDS: WARFARIN 5 MG TABLET PO SCH (20:00)
[2017-04-16] MEDS: ZOLPIDEM 5 MG TABLET PO PRN (21:16)
[2017-04-16] MEDS: DIGOXIN 500 MCG/2 ML AMP IVP SCH (21:16)
[2017-04-17] MEDS: BENZONATATE 100 MG CAPSULE PO PRN ×4 (02:22→21:30)
[2017-04-17] MEDS: ACETAMINOPHEN 325 MG TABLET PO PRN ×2 (02:22→14:40)
[2017-04-17 05:22] LABS: INR 1.3 (0.8-1.2); PT - PROTHROMBIN TIME 14.4 secs (9.9-12.6)
[2017-04-17 05:31] LABS: MAGNESIUM 1.7 mg/dL (1.7-2.8); PHOSPHORUS 2.2 mg/dL (2.5-4.6)
[2017-04-17] MEDS: diltiaZEM 30 MG TABLET PO SCH ×3 (06:10→18:26)
[2017-04-17] MEDS: MAGNESIUM OXIDE 400 MG TABLET PO SCH ×2 (06:11→12:08)
[2017-04-17] MEDS: NEUTRA-PHOS 250 MG TABLET PO SCH ×2 (06:11→07:41)
[2017-04-17] MEDS: SODIUM CHLORIDE FLUSH 0.9% 10 ML SYRINGE IVP SCH ×4 (06:12→21:59)
[2017-04-17] MEDS: LEVOTHYROXINE 125 MCG TABLET PO SCH (06:14)
--- NOTE | 2017-04-17 06:54 | HISTORY & PHYSICAL EXAMINATION ---
DATE OF ADMISSION: 04/15/2017 PRIMARY CARE PHYSICIAN: Kevan Payan MD CHIEF COMPLAINT: Generalized weakness, cough for 4 days. HISTORY OF PRESENT ILLNESS: This is an 87-year-old female who has a history of breast cancer, followe d by Dr. Cr, Oncology. She was last seen 03/20/2017 by her and noted increasing lethargy, weakness. She had right breast infiltrating ductal carcinoma, status post right mastectomy. T2N2a, 4-6 lymph n odes positive, ER negative, HER2 positive. She was given adjuvant chemotherapy with Taxol and Hercept in until 06/2016 and then completed 5 weeks of radiation therapy at [facility]. She also had sustained a left hip fracture 09/14/2016. She presents now with a 4-day history of increasing weakness; denies any fevers or chills, does note a productive cough over the past 4 days. She does have current history of chronic atrial fibrillation and was found also to be in RVR fibrillation, was given IV diltiazem, IV metoprolol, still not adequ ately controlled. Her chest x-ray revealed new patchy right upper lobe densities. Differential including patchy pneumon ia, edema, or pneumonitis, developing mild basilar interstitial edema versus airways inflammation. Th e patient has no history of any lung problems. No history of smoking. Her white count is noted to be 12.9 with 9.0 neutrophils. Heart rate is anywhere from 116 to 133. Nayeli m air saturation 98%. Respiratory rate is 18. Temperature is afebrile. She did have a CT of abdomen and pelvis, as she was complaining of some lower abdominal pain, which r evealed new bilateral extensive airspace disease and nodularity. Differential includes bilateral nodu lar pneumonia versus pulmonary metastatic disease, small left pleural effusion, hepatomegaly with micha atosis of the liver, subacute-appearing mild to moderate L2 wedging compression fracture is new jasbir red to 05/03/2016. EKG shows atrial fibrillation at a rate of 147; Q in III, aVF; poor R-wave progression across the pre cordium. Echocardiogram last done 03/2016 revealed atrial fibrillation, left ventricular wall thickne ss towards the upper limit of normal to mildly increased, systolic function was lower limits of nilo l with an EF of 50% to 55%, mild to moderate aortic regurgitation, mild mitral regurg. Mildly abnorma l right heart pressure was noted. PAST MEDICAL HISTORY 1. Breast carcinoma with right mastectomy, chemotherapy, and radiation therapy 06/2016. 2. History of cerebrovascular accident with no residual deficits. 3. History of chronic and persistent atrial fibrillation. 4. History of hypertension. 5. History of osteoarthritis. 6. History of hypothyroidism. 7. History of osteoporosis. 8. Status post left hip fracture with repair 08/2016. MEDICATIONS UPON ADMISSION 1. Lasix 20 mg p.o. daily. 2. Levoxyl 125 mcg p.o. daily. 3. Metoprolol succinate 100 mg p.o. daily. 4. Zolpidem 5-7.5 mg p.o. daily p.r.n. sleep. 5. Vitamin D3 at 5000 units p.o. daily. 6. Vitamin B complex 1 cap p.o. daily. 7. Tylenol 650 mg p.o. q.i.d. p.r.n. 8. Calcium carbonate 500 mg p.o. b.i.d. p.r.n. ALLERGIES 1. ASPIRIN. 2. SULFA. 3. OXYCODONE. SOCIAL HISTORY: Smoking: Never. Alcohol: None. recently a few months ago. FAMILY MEDICAL HISTORY: No history of coronary artery disease. REVIEW OF SYSTEMS: All other review of systems are reviewed and are negative except as in HPI. PHYSICAL EXAMINATION VITAL SIGNS: Temperature is afebrile, heart rate 133 irregular regular, blood pressure 138/84, respir atory rate 18, room air saturation 98%. CONSTITUTIONAL: An elderly woman in no acute distress. HEENT: Head normocephalic, atraumatic. Eyes PERRLA-DC, EOMI. Mouth: No lesions. NECK: No adenopathy. CHEST: Crackles at her bases. COR: Tachycardic S1, S2, with 2/6 systolic ejection murmur. ABDOMEN: Soft, nontender. Bowel sounds present. EXTREMITIES: Exam reveals no pedal edema. SKIN: No rashes. PSYCHIATRIC: Mood and affect are appropriate. NEUROLOGIC: Alert and oriented x3. Motor strength is intact bilaterally. LABORATORY As above, also to include hemoglobin 9.4, hematocrit 27.9 with an MCV of 100.7, platelets 126. Of not e, hematocrit 04/04/2017 was 34.2. Urine shows specific gravity 1.015, small leukocyte esterase, 0-5 RBCs, 0-3 WBCs, a few squamous epit helial cells, rare bacteria. Sodium 131, potassium 4.0, chloride 98, bicarbonate 24, BUN 17, creatinine 0.9, calculated GFR 60, gl ucose 118, calcium 9.5, total bilirubin 1.5, AST 32, ALT 24, alkaline phosphatase 75, troponin 0.05, BNP 342, total protein 6.4, albumin 3.2, lipase 126. ASSESSMENT AND PLAN 1. Rapid ventricular response atrial fibrillation, acute, present on admission. We will go ahead and place in ICU on IV diltiazem drip, give boluses of IV diltiazem p.r.n. heart rate greater than 110. W e will go ahead and also place on therapeutic Lovenox. She had been on Coumadin in the past, not gay r why she is currently off of it; we will need to pursue that further. Check TSH. Recheck echocardiog samy. 2. Possible community-acquired pneumonia, acute, present on admission. Check sputum Gram stain along with sputum studies, and we will place on IV Rocephin and IV azithromycin and monitor clinically. 3. Anemia, acute, present on admission. Check iron studies. Guaiac stool. Check vitamin B12 and folat e. 4. History of breast carcinoma, concern on imaging for possible metastatic disease in the lungs. We w ill need to monitor and further evaluate for such. 5. Deep venous thrombosis prophylaxis. The patient will be on therapeutic Lovenox. 6. Code status. Did discuss with patient; wishes DNR/DNI. Time spent 60 minutes. JOB #: [id number] EXT JOB #:[id number]
[2017-04-17] MEDS: ENOXAPARIN 60 MG/0.6 ML SYRINGE SUBQ SCH ×2 (08:33→20:49)
[2017-04-17] MEDS: AZITHROMYCIN INJ 500 MG in SODIUM CHLORIDE 0.9% 250 ML IV SCH (08:33)
[2017-04-17] MEDS: CHOLECALCIFEROL 5,000 UNIT CAPSULE PO SCH (08:34)
[2017-04-17] MEDS: METOPROLOL SUCCINATE 50 MG TABLET PO SCH (08:34)
[2017-04-17] MEDS: FAMOTIDINE 20 MG TABLET PO SCH (08:34)
[2017-04-17] MEDS: DIGOXIN 500 MCG/2 ML AMP IVP SCH ×2 (08:35→20:49)
[2017-04-17] MEDS: CALCIUM CARBONATE CHEW 500 MG TABLET PO PRN (08:39)
[2017-04-17] MEDS: [UNRECOGNIZED DRUG - OTHER] PO SCH (08:44)
[2017-04-17] MEDS: POLYETHYLENE GLYCOL 3350 17 GM PACKET PO SCH (08:44)
[2017-04-17] MEDS ORDERED: LORazepam 2 MG/ML SYRINGE ONE (10:34)
[2017-04-17] MEDS ORDERED: LORazepam 2 MG/ML SYRINGE IVP PRN (10:38)
[2017-04-17] MEDS: SODIUM CHLORIDE FLUSH 0.9% 10 ML SYRINGE IVP PRN ×2 (10:41→19:53)
--- NOTE | 2017-04-17 12:02 | PROVIDER PROGRESS NOTE ---
Subjective - Prog Note Date Prog Note Date: 04/17/17 Prog Note Time: 11:50 - Subjective Subjective: she is feeling better and wants to go home but pulse is still 120's at times, still sob and needs O2. getting confused and is actively planning on how "to break out of penitentiary here" and negotiating with the nurse. but a little paranoid. denies cp, abd paijn, nausea, sweats. Current Medications - Current Medications Current Medications: Active Medications Acetaminophen (Tylenol) 650 mg PO Q4HR PRN PRN Reason: Pain 1 to 4 Last Admin: 04/17/17 02:22 Dose: 650 mg Albuterol () 2.5 mg INH Q4HR PRN PRN Reason: Wheezing Benzonatate (Tessalon) 100 mg PO TID PRN PRN Reason: Cough Last Admin: 04/17/17 08:33 Dose: 100 mg Calcium Carbonate/Glycine (Tums) 500 mg PO BID PRN PRN Reason: INDIGESTION Last Admin: 04/17/17 08:39 Dose: 500 mg Cholecalciferol (Vitamin D3) 5,000 unit PO DAILY [facility] Last Admin: 04/17/17 08:34 Dose: 5,000 unit Digoxin (Lanoxin Inj) 250 mcg IVP BID [facility] Stop: 04/17/17 21:01 Last Admin: 04/17/17 08:35 Dose: 250 mcg Digoxin (Lanoxin) 125 mcg PO DAILY [facility] Diltiazem HCl (Cardizem Inj) 10 mg IVP Q3H PRN PRN Reason: HR>110 Diltiazem HCl (Cardizem) 30 mg PO Q6HR [facility] Last Admin: 04/17/17 06:10 Dose: 30 mg Enoxaparin Sodium (Lovenox) 60 mg SUBQ BID [facility] Last Admin: 04/17/17 08:33 Dose: 60 mg Famotidine (Pepcid) 20 mg PO DAILY [facility] Last Admin: 04/17/17 08:34 Dose: 20 mg Azithromycin 500 mg/ Sodium (Chloride) 250 mls @ 250 mls/hr IV DAILY [facility] Last Admin: 04/17/17 08:33 Dose: 250 mls/hr Ceftriaxone Sodium 2 gm/ (Sodium Chloride) 100 mls @ 200 mls/hr IV Q24H [facility] Last Admin: 04/16/17 19:45 Dose: 200 mls/hr Levothyroxine Sodium (Synthroid) 125 mcg PO QDAC [facility] Last Admin: 04/17/17 06:14 Dose: 125 mcg Lorazepam (Ativan Inj) 0.5 mg IVP Q2HR PRN PRN Reason: Anxiety Last Admin: 04/17/17 10:40 Dose: 0.5 mg Metoprolol Succinate (Toprol Xl) 100 mg PO DAILY [facility] Last Admin: 04/17/17 08:34 Dose: 100 mg Ondansetron HCl (Zofran Odt) 4 mg TL Q6HR PRN PRN Reason: Nausea / Vomiting Last Admin: 04/16/17 09:45 Dose: 4 mg N(Vitamin B Complex [Vitamin B Complex] 1 Cap) 1 each PO DAILY [facility] Last Admin: 04/17/17 08:44 Dose: Not Given Polyethylene Glycol (Miralax) 17 gm PO DAILY [facility] Last Admin: 04/17/17 08:44 Dose: 17 gm Sodium Chloride (Normal Saline Flush 0.9%) 10 ml IVP PRN PRN PRN Reason: NEEDED PER PROVIDER ORDERS Last Admin: 04/17/17 10:41 Dose: 10 ml Sodium Chloride (Normal Saline Flush 0.9%) 10 ml IVP Q8HR [facility] Last Admin: 04/17/17 10:41 Dose: 10 ml Throat Lozenges (Cepacol) 1 lozenge MM Q2HR PRN PRN Reason: Mouth Sore Pain Last Admin: 04/16/17 23:56 Dose: 1 lozenge Warfarin Sodium (Coumadin) 5 mg PO QDWARFARIN [facility] Last Admin: 04/16/17 20:00 Dose: 5 mg Zolpidem Tartrate (Ambien) 5 mg PO DAILY PRN PRN Reason: Insomnia Last Admin: 04/16/17 21:16 Dose: 5 mg Furosemide 40 mg PO DAILY 07/10/14 Levothyroxine Sodium [Levoxyl] 125 mcg PO DAILY 07/10/14 Metoprolol Succinate [Toprol Xl] 100 mg PO DAILY 07/10/14 Zolpidem Tartrate 5 - 7.5 mg PO DAILY PRN 07/10/14 Cholecalciferol (Vitamin D3) [Vitamin D3] 5,000 unit PO DAILY 02/03/15 Vitamin B Complex 1 cap PO DAILY 02/03/15 Digoxin 125 mcg PO DAILY 04/16/17 Famotidine [Famotidine] 40 mg PO QPM 04/16/17 Objective - Vital Signs/Intake & Output Reviewed Vital Signs: Yes Vital Signs: Vital Signs Temp Pulse Pulse Resp BP Pulse Ox 04/17/17 10:58 36.7 C 04/17/17 10:41 89 30 H 139/82 H 999 H 04/17/17 09:54 97 30 H 119/70 97 04/17/17 09:45 98 30 H 108/67 97 04/17/17 08:45 113 H 27 H 139/91 H 96 04/17/17 08:35 120 H Intake & Output: Intake & Output 04/14/17 04/15/17 04/16/17 04/17/17 23:59 23:59 23:59 23:59 Intake Total 35 2808 1060 Output Total 700 525 Balance 35 2108 535 - Objective General Appearance: positive: No acute distress, Alert Eyes Bilateral: positive: PERRL ENT: positive: Pharynx nml Neck: positive: No JVD. negative: Stiff neck, Carotid bruit Respiratory: positive: Chest non-tender. negative: Wheezes, Rales, Rhonchi Cardiovascular: positive: Irregularly irregular, Tachycardia, Systolic murmur, Other (RV lift) Abdomen: positive: Non-tender, No organomegaly, Nml bowel sounds, No distention Skin: positive: Color nml, No rash, Warm, Dry Extremities: positive: No pedal edema Neurologic/Psychiatric: positive: Oriented x3, CN's nml (2-12), Motor nml - Lab Results Fish Bones: 04/16/17 04:45 04/16/17 04:45 Other Labs: Lab Results x24hrs 04/17/17 04/17/17 04/17/17 Range/Units 04:48 04:48 04:48 PT 14.4 H (9.9-12.6) secs INR 1.3 H (0.8-1.2) Whole Blood INR (0.8-1.2) Phosphorus 2.2 L (2.5-4.6) mg/dL Magnesium 1.7 (1.7-2.8) mg/dL Last Dose Date UNK Last Dose Time UNK Digoxin 0.4 ng/mL 05/29/17 Range/Units 19:18 PT (9.9-12.6) secs INR (0.8-1.2) Whole Blood INR 1.1 (0.8-1.2) Phosphorus (2.5-4.6) mg/dL Magnesium (1.7-2.8) mg/dL Last Dose Date Last Dose Time Digoxin ng/mL Assessment/Plan - Problem List (1) Atrial fibrillation with rapid ventricular response Impression: rate is better but not controlled regularly. 3 doses of IV dig ordered and last dose was 9 am today. on dilt po tid and po metoprolol. add lopressor one dose IV. ECHO shows worsening pulm HTN that may be from pneumonia. Has MICHELLE. regurgitation. will wait for formal report. (2) Pneumonia Impression: presented as cough and weakness for days before admission seen as ground glass opacities and small areas of consolidation bilaterally on CT yesterday. no blood or sputum cultures ordered Day #3 of azithromycin and rocephin O2 need consistently 1 liter and has been 98-100% saturated. yesterday 96% and today 97% Respiratory rate has been in 20's to 30's and not coming down so no dc today. too tenuous Qualifiers: Pneumonia type: due to unspecified organism Laterality: bilateral Lung location: unspecified part of lung Qualified Code(s): J18.9 - Pneumonia, unspecified organism (3) Anemia Impression: macrocytic. iron deficiency. FOBT negative. Laboratory Tests 04/15/17 13:02 Iron 23 L TIBC 232 L % Saturation 10 L Transferrin 166 L not in renal failure so not from kidneys. ?bone marrow? after chemo and radiation. She didn't become anemic until tx for breast ca in 2016. Dr. Cr in her notes feels her dip was from chemo. but no bounce back and getting slowly worse. she was 14 grams in 2013. down to 11 in 2016. and now 9's this year. 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 ?meds or dementia. give ativan 0.5 mg and risperdal once. Qualifiers: Psychosis type: unspecified psychosis type Qualified Code(s): F29 - Unspecified psychosis not due to a substance or known physiological condition
[2017-04-17] MEDS: WARFARIN 5 MG TABLET PO SCH (14:35)
[2017-04-17] MEDS: risperiDONE 0.25 MG TABLET PO SCH ×2 (14:35→21:29)
[2017-04-17 15:31] LABS: CALCIUM 9.5 mg/dL (8.5-10.3); POTASSIUM 4.2 mmol/L (3.5-5.0)
[2017-04-17 15:37] LABS: CREATININE 0.6 mg/dL (0.4-1.0)
[2017-04-17] MEDS ORDERED: DOCUSATE SODIUM 250 MG CAPSULE PO SCH (16:00)
[2017-04-17] MEDS ORDERED: SENNA 8.6 MG TABLET PO SCH (16:00)
[2017-04-17] MEDS: cefTRIAXone 2 GM in SODIUM CHLORIDE 0.9% MINIBAG 100 ML IV SCH (19:53)
[2017-04-17] MEDS: BENZOCAINE/MENTHOL LOZENGE MM PRN (20:49)
[2017-04-17] MEDS: ZOLPIDEM 5 MG TABLET PO PRN ×2 (21:30→21:59)
[2017-04-17] MEDS ORDERED: ZOLPIDEM 5 MG TABLET PO PRN (21:38)
[2017-04-18] MEDS: diltiaZEM 30 MG TABLET PO SCH ×4 (00:01→18:06)
[2017-04-18 05:38] LABS: INR 1.4 (0.8-1.2); PT - PROTHROMBIN TIME 15.8 secs (9.9-12.6)
[2017-04-18 05:48] LABS: MAGNESIUM 1.9 mg/dL (1.7-2.8); PHOSPHORUS 2.5 mg/dL (2.5-4.6)
[2017-04-18] MEDS: SODIUM CHLORIDE FLUSH 0.9% 10 ML SYRINGE IVP SCH ×3 (05:51→22:07)
[2017-04-18] MEDS: LEVOTHYROXINE 125 MCG TABLET PO SCH (05:53)
[2017-04-18] MEDS ORDERED: DIGOXIN 125 MCG TABLET PO SCH (09:00)
[2017-04-18] MEDS: BENZONATATE 100 MG CAPSULE PO PRN ×2 (09:33→21:22)
[2017-04-18] MEDS: BENZOCAINE/MENTHOL LOZENGE MM PRN ×2 (09:34→21:22)
[2017-04-18] MEDS: AZITHROMYCIN INJ 500 MG in SODIUM CHLORIDE 0.9% 250 ML IV SCH (09:40)
[2017-04-18] MEDS: CHOLECALCIFEROL 5,000 UNIT CAPSULE PO SCH (09:52)
[2017-04-18] MEDS: METOPROLOL SUCCINATE 50 MG TABLET PO SCH (09:53)
[2017-04-18] MEDS: FAMOTIDINE 20 MG TABLET PO SCH (09:53)
[2017-04-18] MEDS: DIGOXIN 125 MCG TABLET PO SCH (09:53)
[2017-04-18] MEDS: ENOXAPARIN 60 MG/0.6 ML SYRINGE SUBQ SCH ×2 (09:54→22:07)
[2017-04-18] MEDS: POLYETHYLENE GLYCOL 3350 17 GM PACKET PO SCH (11:04)
[2017-04-18] MEDS: ACETAMINOPHEN 325 MG TABLET PO PRN ×2 (11:05→16:37)
[2017-04-18] MEDS: WARFARIN 5 MG TABLET PO SCH (13:29)
[2017-04-18] MEDS: [UNRECOGNIZED DRUG - OTHER] PO SCH (13:29)
--- NOTE | 2017-04-18 18:38 | PROVIDER PROGRESS NOTE ---
Subjective - Prog Note Date Prog Note Date: 04/18/17 Prog Note Time: 18:32 - Subjective Pt reports feeling: Improved Subjective: She keeps on thing she wants to go home. But her 2 months ago and she is in the process of packing everything up, making decisions about where to live. While she is now down to room air, eating a bit, she is weak. Was able to get up out of a chair and walk a little bit exhausted. Still in the low 100s with her A. fib rate. Current Medications - Current Medications Current Medications: Active Medications Acetaminophen (Tylenol) 650 mg PO Q4HR PRN PRN Reason: Pain 1 to 4 Last Admin: 04/18/17 16:37 Dose: 650 mg Albuterol () 2.5 mg INH Q4HR PRN PRN Reason: Wheezing Amoxicillin (Amoxil) 250 mg PO Q6HR [facility] Azithromycin (Zithromax) 250 mg PO DAILY [facility] Benzonatate (Tessalon) 100 mg PO TID PRN PRN Reason: Cough Last Admin: 04/18/17 09:33 Dose: 100 mg Calcium Carbonate/Glycine (Tums) 500 mg PO BID PRN PRN Reason: INDIGESTION Last Admin: 04/17/17 08:39 Dose: 500 mg Cholecalciferol (Vitamin D3) 5,000 unit PO DAILY [facility] Last Admin: 04/18/17 09:52 Dose: 5,000 unit Digoxin (Lanoxin) 125 mcg PO DAILY [facility] Last Admin: 04/18/17 09:53 Dose: 125 mcg Diltiazem HCl (Cardizem Inj) 10 mg IVP Q3H PRN PRN Reason: HR>110 Diltiazem HCl (Cardizem Cd) 180 mg PO DAILY [facility] Enoxaparin Sodium (Lovenox) 60 mg SUBQ BID [facility] Last Admin: 04/18/17 09:54 Dose: 60 mg Famotidine (Pepcid) 20 mg PO DAILY [facility] Last Admin: 04/18/17 09:53 Dose: 20 mg Levothyroxine Sodium (Synthroid) 125 mcg PO QDAC [facility] Last Admin: 04/18/17 05:53 Dose: 125 mcg Lorazepam (Ativan Inj) 0.5 mg IVP Q2HR PRN PRN Reason: Anxiety Last Admin: 04/17/17 10:40 Dose: 0.5 mg Metoprolol Succinate (Toprol Xl) 100 mg PO DAILY [facility] Last Admin: 04/18/17 09:53 Dose: 100 mg Ondansetron HCl (Zofran Odt) 4 mg TL Q6HR PRN PRN Reason: Nausea / Vomiting Last Admin: 04/16/17 09:45 Dose: 4 mg N(Vitamin B Complex [Vitamin B Complex] 1 Cap) 1 each PO DAILY [facility] Last Admin: 04/18/17 13:29 Dose: Not Given Polyethylene Glycol (Miralax) 17 gm PO DAILY [facility] Last Admin: 04/18/17 11:04 Dose: 17 gm Risperidone (Risperdal) 0.25 mg PO QPM [facility] Last Admin: 04/17/17 21:29 Dose: 0.25 mg Sodium Chloride (Normal Saline Flush 0.9%) 10 ml IVP PRN PRN PRN Reason: NEEDED PER PROVIDER ORDERS Last Admin: 04/17/17 19:53 Dose: 10 ml Sodium Chloride (Normal Saline Flush 0.9%) 10 ml IVP Q8HR [facility] Last Admin: 04/18/17 13:28 Dose: 10 ml Throat Lozenges (Cepacol) 1 lozenge MM Q2HR PRN PRN Reason: Mouth Sore Pain Last Admin: 04/18/17 09:34 Dose: 1 lozenge Warfarin Sodium (Coumadin) 5 mg PO QDWARFARIN [facility] Last Admin: 04/18/17 13:29 Dose: 5 mg Zolpidem Tartrate (Ambien) 10 mg PO DAILY PRN PRN Reason: Insomnia Furosemide 40 mg PO DAILY 07/10/14 Levothyroxine Sodium [Levoxyl] 125 mcg PO DAILY 07/10/14 Metoprolol Succinate [Toprol Xl] 100 mg PO DAILY 07/10/14 Zolpidem Tartrate 5 - 7.5 mg PO DAILY PRN 07/10/14 Cholecalciferol (Vitamin D3) [Vitamin D3] 5,000 unit PO DAILY 02/03/15 Vitamin B Complex 1 cap PO DAILY 02/03/15 Digoxin 125 mcg PO DAILY 04/16/17 Famotidine [Famotidine] 40 mg PO QPM 04/16/17 Objective - Vital Signs/Intake & Output Reviewed Vital Signs: Yes Vital Signs: Vital Signs x48h Temp Pulse Resp BP BP Pulse Ox 04/18/17 18:06 124/73 04/18/17 16:18 37.1 C 98 20 118/73 94 04/18/17 11:43 36.4 C L 102 H 18 108/65 96 Intake & Output: Intake & Output 04/15/17 04/16/17 04/17/17 04/18/17 23:59 23:59 23:59 23:59 Intake Total 35 2808 1882 1170 Output Total 700 1325 750 Balance 35 2108 557 420 - Objective General Appearance: positive: No acute distress, Alert, Other (thin alert female ) Eyes Bilateral: positive: PERRL ENT: positive: No signs of dehydration Neck: positive: No JVD. negative: Stiff neck Respiratory: positive: Chest non-tender, Rhonchi. negative: Wheezes, Rales Cardiovascular: positive: Irregularly irregular, Tachycardia (occcasional) Abdomen: positive: Non-tender, Nml bowel sounds, No distention Skin: positive: Color nml, No rash, Warm, Dry Extremities: positive: Non-tender, No pedal edema Neurologic/Psychiatric: positive: Oriented x3, CN's nml (2-12), Motor nml, Weakness - Lab Results Fish Bones: 04/16/17 04:45 04/17/17 04:48 Other Labs: Lab Results x24hrs 04/18/17 04/18/17 04/18/17 Range/Units 05:18 05:18 05:18 PT 15.8 H (9.9-12.6) secs INR 1.4 H (0.8-1.2) Phosphorus 2.5 (2.5-4.6) mg/dL Magnesium 1.9 (1.7-2.8) mg/dL Last Dose Date 04-17-17 Last Dose Time 0900 Digoxin 0.9 ng/mL Assessment/Plan - Problem List (1) Atrial fibrillation with rapid ventricular response Impression: rate is better but still not controlled regularly. 3 doses of IV dig ordered and done by 9 am yesterday. out of ICU. on dilt po tid and po metoprolol. add lopressor one dose IV. will change meds to daily doses and get ready for dc in am if rate is <100 regularly ECHO shows worsening pulm HTN that may be from pneumonia. Has MICHELLE. regurgitation. will wait for formal report. (2) Pneumonia Impression: presented as cough and weakness for days before admission seen as ground glass opacities and small areas of consolidation bilaterally on CT yesterday. no blood or sputum cultures ordered Day #4 of azithromycin and rocephin IV. have changed to po now. O2 need now gone. is ok on RA Respiratory rate has been in 20's to 30's and fianlly came down so dc in am Qualifiers: Pneumonia type: due to unspecified organism Laterality: bilateral Lung location: unspecified part of lung Qualified Code(s): J18.9 - Pneumonia, unspecified organism (3) Anemia Impression: macrocytic. iron deficiency. FOBT negative. will need outpt fu. (2) Pneumonia Qualifiers: Pneumonia type: due to unspecified organism Laterality: bilateral Lung location: unspecified part of lung Qualified Code(s): J18.9 - Pneumonia, unspecified organism (3) Anemia Qualifiers: Anemia type: iron deficiency Iron deficiency anemia type: unspecified iron deficiency Qualified Code(s): D50.9 - Iron deficiency anemia, unspecified (4) Psychoses Qualifiers: Psychosis type: unspecified psychosis type Qualified Code(s): F29 - Unspecified psychosis not due to a substance or known physiological condition
[2017-04-18] MEDS: AMOXICILLIN 250 MG CAPSULE PO SCH (19:32)
[2017-04-18] MEDS: DOCUSATE SODIUM 250 MG CAPSULE PO PRN (22:07)
[2017-04-18] MEDS: diltiaZEM CD 180 MG CAPSULE PO SCH (22:08)
[2017-04-18] MEDS: risperiDONE 0.25 MG TABLET PO SCH (22:08)
[2017-04-18] MEDS: SENNA 8.6 MG TABLET PO PRN (22:08)
[2017-04-19] MEDS: BENZOCAINE/MENTHOL LOZENGE MM PRN ×3 (00:05→12:19)
[2017-04-19 05:48] LABS: CALCIUM 9.3 mg/dL (8.5-10.3); CREATININE 0.7 mg/dL (0.4-1.0); POTASSIUM 4.3 mmol/L (3.5-5.0)
[2017-04-19 05:52] LABS: INR 1.7 (0.8-1.2); PT - PROTHROMBIN TIME 18.9 secs (9.9-12.6)
[2017-04-19] MEDS: LEVOTHYROXINE 125 MCG TABLET PO SCH (06:33)
[2017-04-19] MEDS: AMOXICILLIN 250 MG CAPSULE PO SCH ×3 (06:33→12:19)
[2017-04-19] MEDS: SODIUM CHLORIDE FLUSH 0.9% 10 ML SYRINGE IVP SCH (06:33)
[2017-04-19 07:57] VITALS: BP 130/78
[2017-04-19] MEDS: METOPROLOL SUCCINATE 50 MG TABLET PO SCH (08:56)
[2017-04-19] MEDS: DOCUSATE SODIUM 250 MG CAPSULE PO PRN (08:56)
[2017-04-19] MEDS: BENZONATATE 100 MG CAPSULE PO PRN (08:56)
[2017-04-19] MEDS: diltiaZEM CD 180 MG CAPSULE PO SCH (08:57)
[2017-04-19] MEDS: SENNA 8.6 MG TABLET PO PRN (08:57)
[2017-04-19] MEDS: DIGOXIN 125 MCG TABLET PO SCH (08:58)
[2017-04-19] MEDS: FAMOTIDINE 20 MG TABLET PO SCH (08:58)
[2017-04-19] MEDS: CHOLECALCIFEROL 5,000 UNIT CAPSULE PO SCH (08:58)
[2017-04-19] MEDS: POLYETHYLENE GLYCOL 3350 17 GM PACKET PO SCH (08:59)
[2017-04-19] MEDS: [UNRECOGNIZED DRUG - OTHER] PO SCH (09:00)
[2017-04-19] MEDS ORDERED: AZITHROMYCIN 250 MG TABLET PO SCH (09:00)
[2017-04-19] MEDS: ENOXAPARIN 60 MG/0.6 ML SYRINGE SUBQ SCH (09:00)
--- NOTE | 2017-04-19 09:00 | Discharge Plan ---
Discharge Plan Disposition: Home Health Service Condition: Stable Prescriptions: Amoxicillin 500 mg PO BID #6 capsule diltiaZEM CD [Cardizem Cd] 180 mg PO DAILY #30 capsule Benzonatate [Tessalon] 100 mg PO TID PRN #30 capsule PRN Reason: Cough Diet: Regular (also do a protein supplement once a day) Activity Restrictions: Activity as Tolerated Shower Restrictions: No Driving Restrictions: Yes (no driving) Additional Instructions or Follow Up instructions: You were admitted because your heart rate was too fast in atrial fibrillation. We found out that your body was under stress from pneumonia. You have done well with treatment and you no longer need oxygen. Your heart rate is now consistently below 100. But we have started you on a new medicine called Cardizem to help control your fast heart rate. You are now on 3 medicines to slow down your heart rate. Digoxin, Cardizem, and metoprolol. Please see your primary care provider because your heart rate needs to be monitored and one of these medicines may be reduced or stopped. Please also finish your antibiotics for the treatment of pneumonia. make a appointment to see Dr. Payan in the next week. No Smoking: If you smoke, Please STOP! Call for help. Follow-up with: Kevan Payan MD [Provider Admit Priv/Credential] -
--- NOTE | 2017-04-19 16:05 | DISCHARGE SUMMARY ---
DATE OF ADMISSION: 04/15/2017 DATE OF DISCHARGE: 04/19/2017 PRIMARY CARE PROVIDER: Kevan Payan MD. DISCHARGE DIAGNOSES 1. Atrial fibrillation with rapid ventricular response, chronic atrial fibrillation. 2. Community acquired pneumonia. 3. Iron deficiency anemia with macrocytosis. 4. Breast cancer. 5. Psychosis. DISCHARGE MEDICATIONS 1. Digoxin 0.125 mg p.o. daily. 2. Famotidine 40 mg p.o. daily. 3. Lasix 40 mg p.o. daily. 4. Levoxyl 125 mcg a day. 5. Toprol-XL 100 mg a day. 6. Zolpidem 7.5 mg at night as needed. 7. Amoxil 500 mg p.o. b.i.d. for 3 more days. 8. Cardizem-CD 180 mg p.o. daily. 9. Coumadin 2.5 mg p.o. on Sundays and 5 mg p.o. every day except Sunday. 10. Tessalon Perles 100 mg p.o. t.i.d. p.r.n. cough. 11. Vitamin D 5000 units daily. 12. Calcium 500 mg p.o. b.i.d. 13. Tylenol 650 mg p.o. q.i.d. p.r.n. fever or headache. 15. Vitamin B complex 1 capsule daily. PRINCIPAL PROCEDURES Chest x-ray with mild bibasilar interstitial edema versus inflammation. New patchy right upper lobe d ensities. Differential included pneumonia, edema or pneumonitis. Abdomen and pelvis CT done for abdominal pain and history of breast cancer. New bilateral extensive a irspace disease and nodularity seen in the bottom cuts of lung. Small left pleural effusion. Hepatome verna with steatosis of the liver. Subacute mild to moderate L2 wedge compression fracture, new from 0 05/03/2016. CT of the chest confirming trace bilateral pleural effusions. Prominent bilateral ground glass opacit ies and consolidation areas of airspace disease diffusely seen within both lungs. She has a left-side d Port-A-Cath in, subcarinal lymph nodes that are small. Appearance would favor bilateral pneumonia o r bronchopneumonia. Echocardiogram with ejection fraction at 55-60%. Severe increase left atrial volume index. Mild to mo derate aortic regurgitation. Moderate mitral regurgitation. Severely abnormal right heart pressures w ith right ventricular systolic pressure at 71 mmHg, but the right ventricle systolic function is norm al. HOSPITAL COURSE: The patient is a hola 87-year-old woman who was diagnosed with breast cancer in last year and is getting treated by Dr. Cr. She is being treated for a right breast infiltrating ductal carcinoma, status post mastectomy. She is T2 N2a, 4/6 lymph nodes positive, ER negative, HER-2 /marlene positive. She was given adjuvant chemotherapy with 3 weekly Taxol and Herceptin until 06/2016, c omplicated by severe peripheral neuropathy and fluid retention. Status post adjuvant radiation until 08/2016. She is being watched expectantly and is getting annual screening exams. She has anemia and t hrombocytopenia associated with her chemotherapy. Over the last 2 years, anemia has been getting grad ually worse and with Dr. Cr's last note on 02/19, she was to get a CBC and be seen in 3-4 months. Unfortunately, the patient's has in the last 2 months. She is very sad, does not want to eat as much, under stress in that she has to sell the house, pack everything up. Her 's child wilda are helping her. Her stepson has moved in and is helping take care of her and make all of these d ecisions. She came to the emergency room because she has been coughing for over 4 days. Increasing in severity. Started getting short of breath and weakness has been getting severe. She described chest heaviness for about 2 weeks and she noticed that her heart rate was increasing with palpitations and sometimes her rate would be in the 140s. She had no fever. Emesis was once after coughing so hard that it induc ed a gag reflex. She is supposed to be an anticoagulation, but stopped taking it after her hip fractu re in 08/2016. In the emergency room, she was identified as being afebrile with a heart rate of 149, respirations 18 , blood pressure a little low at 109/63 and 97% saturated on room air. She was found to be in atrial fibrillation with RVR. Her troponin was 0.05. BNP mildly elevated at 342. In addition to the atrial fibrillation with RVR, and no ischemic changes on EKG, chest x-ray was as a tavon with scant infiltrate. She did a CT of the abdomen and pelvis and confirmed that she has a pneum onia. As such, she was brought into the hospital and treated as atrial fibrillation with RVR, placed in the ICU for a diltiazem drip, and started on empiric antibiotic therapy. It took over 24 hours wit h increasing the doses of diltiazem to get her rate down consistently in the low 100s. She was transi tioned to oral diltiazem and continued on her oral beta-kerry, and digoxin was reloaded. If she get s up and walks or gets excited, her heart rate will go up over 100. In the last 24 hours before disch gómez, pulse was consistently in the 90s. She was anxious to get home. We asked her to please walk in the room, show us that she is able to ambulate without ataxia in the hallway. She was able to do so. With regard to her abnormal chest x-ray, a confirmatory CT of the chest was done. She was treated emp irically with azithromycin and Rocephin. Blood cultures were not done nor were sputum cultures. She n ever had an elevated white cell count or a fever. She has completed IV antibiotic therapy and was tra nsitioned to oral therapy before discharge. On the day of discharge, she is afebrile and not needing supplemental oxygen. Anemia was noted on admission. Where she had a normal hemoglobin in 2013, 2014, into 2015, she became anemic with the radiation and chemotherapy in 2015. In 2016, hemoglobin was 12.2 in December. It was 11 on 04/04, 9.4 on 04/15, and 9.7 on 04/16. Iron studies were done and quite low at 23. TIBC 232, p ercent saturation 10, transferrin 166. I have asked her to please start taking an oral iron tablet ov [id number]. Fecal occult stool study was negative x1 during her stay. She cannot remember if she has ever had a colonoscopy or not. In looking at the [employer] EMR, there is no pathology specimen ass ociated with the colonoscopy and I do see a colonoscopy report from 02/03/2015. It was done by Dr. Kylie amaral. Prep was good, and there was sigmoid diverticulosis, but no polyps seen, and as such no biops ies. I would hope that Dr. Cr will see this discharge summary and follow up with her when he sees er in June. She will also need a repeat CBC with Dr. Payan. During her stay, she did have a brief episode of hallucinations, paranoia. She required Risperdal in the evenings and that controlled mentation quite nicely. On the day of discharge, she was discharged in stable condition and showed us that she was able to ge t up and walk without any difficulty or shortness of breath. Temperature was 37, pulse is 94, blood p ressure 130/78, respirations 20 and unlabored, and she is 93% on room air. She is a very thin, elderl y, mildly cachectic female, alert and oriented to person, place and time. Very anxious to get home. N o focal deficits. Neck is supple. Lungs have coarse upper airway sounds without crackles, rhonchi, or wheezing. No use of accessory muscles. PMI normally placed with an irregular rate and rhythm and a d iastolic murmur. The abdomen is soft, scaphoid, nontender, without masses. Because she lives alone and is in a relatively fragile state, I have asked home health to please [facility] on her. I need them to make sure that she is eating, that she is weighed weekly and is gaining weig ht, not from congestive heart failure, but from nutrition. I told the patient I want her to take an e xtra protein supplement can a day. I need her lungs examined, oximetry checked, and pulse rate checke d. Since she is also resuming her Coumadin, that she never resumed after her hip fracture in August, she will need a pro time and INR. I have discussed the case with Dr. Payan. Greater than 30 minutes were spent in coordinating discharge. JOB #: [id number] EXT JOB #:[id number]
== END 2017-04-19 12:35 | disposition home health service (06) | DRG 308 ==
LOC: ED 12:50 → ICU 20:59 → MS 04-18 03:26
PROVIDERS: ADMIT Specialist; ATTEND Specialist
DX: I48.2 Chronic atrial fibrillation (principal); J18.9 Pneumonia, unspecified organism; D64.9 Anemia, unspecified; J18.1 Lobar pneumonia, unspecified organism; E78.00 Pure hypercholesterolemia, unspecified; D50.9 Iron deficiency anemia, unspecified; Z85.820 Personal history of malignant melanoma of skin; D53.9 Nutritional anemia, unspecified; Z85.3 Personal history of malignant neoplasm of breast; F29 Unspecified psychosis not due to a substance or known physiological condition; D64.81 Anemia due to antineoplastic chemotherapy; D69.59 Other secondary thrombocytopenia; T45.1X5S Adverse effect of antineoplastic and immunosuppressive drugs, sequela; I10 Essential (primary) hypertension; E03.9 Hypothyroidism, unspecified; M81.0 Age-related osteoporosis without current pathological fracture; I08.0 Rheumatic disorders of both mitral and aortic valves; I27.2 Other secondary pulmonary hypertension; Z66 Do not resuscitate; Z95.828 Presence of other vascular implants and grafts; Z90.11 Acquired absence of right breast and nipple; Z92.21 Personal history of antineoplastic chemotherapy; Z92.3 Personal history of irradiation; Z17.1 Estrogen receptor negative status [ER-]; Z63.4 Disappearance and death of family member; Z63.79 Other stressful life events affecting family and household; Z60.2 Problems related to living alone; Z86.73 Personal history of transient ischemic attack (TIA), and cerebral infarction without residual deficits
CPT/HCPCS: 36415; 71010; 71260; 74177; 80048; 80053; 80162; 81001; 81003; 82040; 82270; 82310; 82565; 82607; 82746; 83540; 83690; 83735; 83880; 84100; 84132; 84443; 84466; 84484; 85025; 85610; 87086; 87150; 93005; 93306; 96361; 96374; 96375; 96376; 99285

== ENCOUNTER 2017-05-10 10:26 | Outpatient (CLI) | payer MEDICARE, BC ==
--- NOTE | 2017-05-11 12:58 | XRAY Report ---
CHEST PA AND LATERAL: 05/10/2017 CLINICAL HISTORY: Pneumonia. The patient had a bilateral bronchopneumonia and/or metastatic lung disease on preceding CT exam of 04/16/2017. The present exam is being done in followup. FINDINGS: The bony thorax is normal. Mild to moderate cardiomegaly is seen. The mediastinum is not widened. A Port-A-Cath is noted in place with its tip in the superior vena cava in good position 1-2 cm above the level of the right atrium. The lungs demonstrate significant improvement as compared to CT exam of 2016. Resolution of ground-glass areas of opacification as well as alveolar consolidation. There is mild residual peribronchial thickening in the right lower lobe. There are small nodular densities seen in the right mid to lower lung field and in the right upper lobe. The right upper lobe finding measures 0.4 cm. The right mid to lower lung field finding measures 0.7 cm. These areas should be followed either with a repeat chest PA and lateral in three months or with a repeat chest CT. IMPRESSION: 1. MILD TO MODERATE CARDIOMEGALY. 2. PORT-A-CATH IS NOTED IN PLACE WITH ITS TIP IN THE SUPERIOR VENA CAVA IN GOOD POSITION. 3. SIGNIFICANT IMPROVEMENT IN PREVIOUSLY SEEN BILATERAL PLEURAL AND PARENCHYMAL DISEASE COMPARED TO PRECEDING CHEST CT OF 04/16/2017. THIS IMPROVEMENT MAY EITHER BE A RESULT OF IMPROVED METASTATIC LUNG DISEASE AND/OR PNEUMONIA. RECOMMEND CLINICAL CORRELATION. 4. MILD INTERSTITIAL PARENCHYMAL DISEASE IS SEEN IN THE RIGHT LOWER LOBE. THIS FINDING PROBABLY REPRESENTS RESOLVING PNEUMONIA OR METASTATIC DISEASE. SECONDARY CONSIDERATION WOULD BE A NEW ACUTE MILD PNEUMONIA. RECOMMEND CLINICAL CORRELATION. 5. TWO SMALL NODULAR DENSITIES ARE NOTED IN THE RIGHT LUNG. AN 0.4 CM NODULE IS SEEN IN THE RIGHT UPPER LOBE AND AN 0.7 CM NODULE IS SEEN IN THE RIGHT MID TO LOWER LUNG FIELD. THESE ARE NONSPECIFIC AND OF QUESTIONABLE SIGNIFICANCE. THEY SHOULD BE FOLLOWED WITH A REPEAT PA AND LATERAL CHEST IN THREE MONTHS AND/OR CHEST CT. JOB #: [id number] EXT JOB #: [id number] MTDD
== END 2017-05-10 10:27 | disposition home or self-care (01) ==
LOC: DI.S 10:26
PROVIDERS: ATTEND Internal Medicine
DX: I51.7 Cardiomegaly (principal); J84.9 Interstitial pulmonary disease, unspecified; Z95.828 Presence of other vascular implants and grafts; R91.8 Other nonspecific abnormal finding of lung field
CPT/HCPCS: 71020

== ENCOUNTER 2017-06-02 14:28 | Outpatient (CLI) | payer MEDICARE, BC | END 2017-06-02 14:29 | disposition critical access hospital (66) | LOC: EMS 14:28 | PROVIDERS: ATTEND Surgery | DX: R10.9 Unspecified abdominal pain (principal); R11.2 Nausea with vomiting, unspecified; R50.9 Fever, unspecified | CPT/HCPCS: A0425; A0427 ==

== ENCOUNTER 2017-06-02 14:52 | Inpatient (IN) | payer MEDICARE, BC ==
[2017-06-02] MEDS ORDERED: ACETAMINOPHEN 1,000 MG/100 ML 100 ML IV ONE (15:03)
[2017-06-02] MEDS ORDERED: ACETAMINOPHEN 1,000 MG/100 ML 100 ML IV STA (15:04)
--- NOTE | 2017-06-02 15:14 | ED Physician Documentation ---
PD HPI FEVER - Stated complaint Stated Complaint: FEVER - Chief complaint Chief Complaint: General - History obtained from History obtained from: Patient, EMS - History of Present Illness Timing - onset: How many days ago (3) Timing duration: Days (3) Timing details: Gradual onset, Still present Associated symptoms: Chills, Sweats, Dry cough, Urinary symptoms Similar symptoms before: Has not had sx before Recently seen: Not recently seen - Additional information Additional information: 87 y/o female with a history of Infiltrating ductal carcinoma of the breast is in remission from the breast cancer and she has now developed fever, with cough and lower abdominal pain. She does not feel well she has been vomiting and feels weak. She did not have a fall today. Review of Systems Constitutional: reports: Fever, Chills, Myalgias, Fatigue, Sweats Eyes: denies: Decreased vision Ears: denies: Ear pain Nose: denies: Rhinorrhea / runny nose, Congestion Throat: denies: Sore throat Cardiac: reports: Palpitations, Pedal edema. denies: Chest pain / pressure Respiratory: reports: Dyspnea, Cough GI: reports: Nausea, Vomiting, Diarrhea. denies: Abdominal Pain : reports: Dysuria, Frequency Skin: denies: Rash Musculoskeletal: denies: Neck pain, Back pain, Extremity pain, Extremity swelling Neurologic: reports: Generalized weakness. denies: Focal weakness, Numbness, Difficulty speaking PD PAST MEDICAL HISTORY - Past Medical History Cardiovascular: Hypertension, High cholesterol, Atrial fibrillation Respiratory: None Neuro: CVA, Headache/migraine Endocrine/Autoimmune: Other GI: GERD, Hemorrhoids ADDICTION PSYCHIATRIST: Breast cancer : Incontinence, Frequency HEENT: None Psych: Depression Musculoskeletal: Osteoarthritis, Fibromyalgia, Chronic back pain Derm: Rosacea - Past Surgical History Past Surgical History: Yes General: Colonoscopy, EGD Ortho: Hip replacement, Knee replacement, Other /ADDICTION PSYCHIATRIST: Hysterectomy, Mastectomy HEENT: Cataracts, Rhinoplasty - Present Medications Home Medications: Ambulatory Orders Medication Instructions Recorded Confirmed Furosemide 40 mg PO DAILY 07/10/14 04/16/17 Levothyroxine Sodium [Levoxyl] 125 mcg PO DAILY 07/10/14 04/15/17 Metoprolol Succinate [Toprol Xl] 100 mg PO DAILY 07/10/14 04/16/17 Zolpidem Tartrate 5 - 7.5 mg PO DAILY PRN 07/10/14 04/16/17 Cholecalciferol (Vitamin D3) 5,000 unit PO DAILY 02/03/15 04/15/17 [Vitamin D3] Vitamin B Complex 1 cap PO DAILY 02/03/15 04/15/17 Acetaminophen [Tylenol] 650 mg PO QID tablet 09/18/16 04/15/17 Calcium Carbonate [Tums (Calcium 500 mg PO BID PRN #0 tablet 09/18/16 04/15/17 Carbonate 500mg)] Digoxin 125 mcg PO DAILY 04/16/17 04/16/17 Famotidine 40 mg PO QPM 04/16/17 04/16/17 Amoxicillin 500 mg PO BID #6 capsule 04/19/17 Benzonatate [Tessalon] 100 mg PO TID PRN #30 capsule 04/19/17 Warfarin [Coumadin] 2.5 mg PO OAW #10 tablet 04/19/17 Warfarin [Coumadin] 5 mg PO 1400 #30 tablet 04/19/17 diltiaZEM CD [Cardizem Cd] 180 mg PO DAILY #30 capsule 04/19/17 - Allergies Allergies/Adverse Reactions: Allergies Allergy/AdvReac Type Severity Reaction Status Date / Time aspirin Allergy Unknown Verified 11/22/16 09:32 sulfadiazine [Sulfadiazine] Allergy Hives Verified 11/22/16 09:32 oxycodone HCl * AdvReac Mild Nausea Verified 11/22/16 09:32 [From Percocet] - Social History Does the pt smoke?: No Smoking Status: Never smoker Does the pt drink ETOH?: Yes Does the pt have substance abuse?: No - Immunizations Immunizations are current?: Yes - POLST Patient has POLST: No PD ED PE NORMAL - Vitals Vital signs reviewed: Yes (febrile, tachycardic and hypertensive ) - General General: Well developed/nourished, Other (The patient appears flush and is warm to the touch. ) - HEENT HEENT: Atraumatic, PERRL, EOMI - Neck Neck: Supple, no meningeal sign - Cardiac Cardiac: Other (rapid irregularrly irregular rate and rhythm ) - Respiratory Respiratory: No respiratory distress, Clear bilaterally - Abdomen Abdomen: Soft, Non tender - Back Back: No CVA TTP, No spinal TTP - Derm Derm: Normal color, Warm and dry, No rash - Extremities Extremities: No deformity, Other (There is trace edema bilaterally ) - Neuro Neuro: No motor deficit, No sensory deficit - Psych Psych: Normal mood, Normal affect Results - Vitals Vitals: Vital Signs - 24 hr 06/02/17 06/02/17 06/02/17 14:54 15:38 16:18 Temperature 38.8 C H 37.6 C H Heart Rate 147 H 145 H 103 H Respiratory 16 28 H 26 H Rate Blood Pressure 157/114 H 128/79 91/58 L O2 Saturation 98 93 93 Oxygen O2 Source Room air - EKG (time done) 1521 Rate: Rate (enter#) (156) Rhythm: Atrial fibrillation QRS: LVH Ischemia: Q waves Computer interpretation: Agree with computer - Labs Labs: Laboratory Tests 06/02/17 06/02/17 06/02/17 15:19 15:19 15:19 WBC 14.8 H RBC 3.17 L Hgb 10.9 L Hct 32.9 L MCV 103.9 H MCH 34.5 H MCHC 33.2 RDW 17.2 H Plt Count 66 L MPV 9.5 Reticulocyte % (Auto) Neut # 11.0 H Lymph # 0.3 L Estill # 3.5 H Eos # 0.0 Baso # 0.0 Absolute Nucleated RBC 0.03 Nucleated RBCs 0.2 Manual Slide Review Indicated Platelet Estimate DECREASED (<130,000) RBC Morph Micro Appear 2+ MACROCYTOSIS Absolute Retic PT INR Sodium 129 L Potassium 4.3 Chloride 94 L Carbon Dioxide 25 Anion Gap 10.0 BUN 17 Creatinine 0.9 Estimated GFR (MDRD) 60 L Glucose 180 H Lactic Acid Calcium 9.9 Total Bilirubin 2.0 H AST 29 ALT 26 Alkaline Phosphatase 71 Lactate Dehydrogenase Troponin I < 0.04 Total Protein 7.3 Albumin 3.8 Globulin 3.5 Albumin/Globulin Ratio 1.1 Lipase 19 L Urine Color Urine Clarity Urine pH Ur Specific [place] Urine Protein Urine Glucose (UA) Urine Ketones Urine Occult Blood Urine Nitrite Urine Bilirubin Urine Urobilinogen Ur Leukocyte Esterase Urine RBC Urine WBC Ur Squamous Epith Cells Urine Bacteria Ur Microscopic Review Urine Culture Comments 06/02/17 06/02/17 06/02/17 15:19 15:19 15:19 WBC RBC 3.18 L Hgb Hct MCV MCH MCHC RDW Plt Count MPV Reticulocyte % (Auto) 2.25 Neut # Lymph # [place] # Eos # Baso # Absolute Nucleated RBC Nucleated RBCs Manual Slide Review Platelet Estimate RBC Morph Micro Appear Absolute Retic 0.071 PT 14.7 H INR 1.3 H Sodium Potassium Chloride Carbon Dioxide Anion Gap BUN Creatinine Estimated GFR (MDRD) Glucose Lactic Acid 1.7 Calcium Total Bilirubin AST ALT Alkaline Phosphatase Lactate Dehydrogenase Troponin I Total Protein Albumin Globulin Albumin/Globulin Ratio Lipase Urine Color Urine Clarity Urine pH Ur Specific [place] Urine Protein Urine Glucose (UA) Urine Ketones Urine Occult Blood Urine Nitrite Urine Bilirubin Urine Urobilinogen Ur Leukocyte Esterase Urine RBC Urine WBC Ur Squamous Epith Cells Urine Bacteria Ur Microscopic Review Urine Culture Comments 06/02/17 06/02/17 15:19 15:35 WBC RBC Hgb Hct MCV MCH MCHC RDW Plt Count MPV Reticulocyte % (Auto) Neut # Lymph # [place] # Eos # Baso # Absolute Nucleated RBC Nucleated RBCs Manual Slide Review Platelet Estimate RBC Morph Micro Appear Absolute Retic PT INR Sodium Potassium Chloride Carbon Dioxide Anion Gap BUN Creatinine Estimated GFR (MDRD) Glucose Lactic Acid Calcium Total Bilirubin AST ALT Alkaline Phosphatase Lactate Dehydrogenase 177 Troponin I Total Protein Albumin Globulin Albumin/Globulin Ratio Lipase Urine Color YELLOW Urine Clarity CLOUDY Urine pH 6.0 Ur Specific [place] 1.020 Urine Protein 100 H Urine Glucose (UA) NEGATIVE Urine Ketones NEGATIVE Urine Occult Blood MODERATE H Urine Nitrite NEGATIVE Urine Bilirubin NEGATIVE Urine Urobilinogen 0.2 (NORMAL) Ur Leukocyte Esterase NEGATIVE Urine RBC 6-10 H Urine WBC 6-10 H Ur Squamous Epith Cells NONE SEEN Urine Bacteria Many H Ur Microscopic Review INDICATED Urine Culture Comments INDICATED - Rads (name of study) 2 view chest Radiology: Prelim report reviewed (Impression: 1. No definite acute infiltrate.2. Decrease in the mild bilateral interstitial prominence.3. Previously described right nodular densities are less evident although there may be a subtle right lateral upper lung nodule. Continued follow-up is recommended. Further evaluation indicated, CT imaging would be recommended.), EMP read indepedently (On my read there does appear to be a right middle lobe infiltrate.), See rad report CT angio chest Radiology: Prelim report reviewed (Impression: 1. No evidence of pulmonary emboli.2. Substantial interval improvement of previous pattern of bilateral scattered multifocal areas of pulmonary consolidation and pulmonary nodules, with mild persistence.3. Resolution of previous pleural effusions4. Mediastinal lymphadenopathy demonstrates areas of both mild improvement and mild increased.5. Stable cardiac enlargement.6. Probable cholelithiasis.7. Partial demonstration of probable minimal right upper abdominal fluid, without change.8. Height loss of thoracic and lumbar vertebral bodies, without seymour change.8. Height loss of thoracic and lumbar vertebral bodies, without seymour change.), EMP read indepedently, See rad report Procedures - IVC sono (time) 1515 Bedside IVC sono: IVC measures (cm) (2.22), IVC collapsed c insp (cm) (2.02), High CVP PD MEDICAL DECISION MAKING - ED course Complexity details: reviewed old records, reviewed results, re-evaluated patient , considered differential, d/w patient ED course: 87-year-old female with a fever for the past 3 days presents to the emergency department with atrial fibrillation and rapid ventricular response and she does not appear to be tolerating the rhythm well her inferior vena cava is plethoric on interrogation and she is administered intravenous acetaminophen shortly after arrival to the emergency department. Blood cultures obtained urine is obtained by catheterized specimen and antibiotic is infused. Despite improvement in her fever she continues to be tachycardic in atrial fibrillation and she is administered diltiazem 20 mg intravenously with reduction her heart rate to about 100. She feels improved with this.Her chest x-ray shows right middle lobe infiltrate urine shows white blood cells elevated white blood cell count and the patient is prepared for admission to the hospital. Departure - Departure Disposition: 66 [facility] DC/Xfer Clinical Impression: Atrial fibrillation with rapid ventricular response Pneumonia Qualifiers: Pneumonia type: due to unspecified organism Laterality: right Lung location: middle lobe of lung Qualified Code(s): J18.1 - Lobar pneumonia, unspecified organism Urinary tract infection Qualifiers: Urinary tract infection type: acute cystitis Hematuria presence: without hematuria Qualified Code(s): N30.00 - Acute cystitis without hematuria Discharge Date/Time: 06/02/17 17:25
[2017-06-02] MEDS ORDERED: cefTRIAXone 1 GM in SODIUM CHLORIDE 0.9% MINIBAG 100 ML IV STA (15:19)
[2017-06-02 15:30] LABS: BASOPHILS % (AUTO) 0.1 %; HCT - HEMATOCRIT 32.9 % (37.0-47.0); HGB - HEMOGLOBIN 10.9 g/dL (12.0-16.0); LYMPHOCYTES # (AUTO) 0.3 10^3/uL (1.5-3.5); LYMPHOCYTES % (AUTO) 2.3 %; MEAN CORPUSCULAR HEMOGLOBIN 34.5 pg (27.0-31.0); MEAN CORPUSCULAR HGB CONC 33.2 g/dL (32.0-36.0); MEAN CORPUSCULAR VOLUME 103.9 fL (81.0-99.0); MEAN PLATELET VOLUME 9.5 fL (7.9-10.8); MONOCYTES # (AUTO) 3.5 10^3/uL (0.0-1.0); MONOCYTES % (AUTO) 23.3 %; NEUTROPHILS % (AUTO) 74.3 %; NUCLEATED RED BLOOD CELLS AUTO 0.2 /100WBC; RED BLOOD COUNT 3.17 10^6/uL (4.20-5.40); RED CELL DISTRIBUTION WIDTH 17.2 % (12.0-15.0); UNCORRECTED WHITE BLOOD COUNT 14.8 x10^3/uL; WHITE BLOOD COUNT 14.8 x10^3/uL (4.8-10.8)
[2017-06-02 15:41] LABS: ALBUMIN/GLOBULIN RATIO 1.1 (1.0-2.2); CALCIUM 9.9 mg/dL (8.5-10.3); CREATININE 0.9 mg/dL (0.4-1.0); POTASSIUM 4.3 mmol/L (3.5-5.0); TOTAL PROTEIN 7.3 g/dL (6.7-8.2)
[2017-06-02 15:47] LABS: BILIRUBIN,URINE NEGATIVE (NEGATIVE)
[2017-06-02 15:50] LABS: UA w/ MICROSCOPIC CHARGE YES
[2017-06-02 15:52] LABS: PLATELET ESTIMATE, MANUAL DECREASED (<130,000) (NORMAL)
[2017-06-02 16:05] LABS: UR CULTURE IF IND INDICATED
[2017-06-02] MEDS ORDERED: diltiaZEM INJ 5 MG/ML VIAL IVP STA (16:08)
[2017-06-02] MEDS ORDERED: cefTRIAXone 1 GM VIAL ONE (16:12)
[2017-06-02] MEDS ORDERED: diltiaZEM INJ 5 MG/ML VIAL ONE (16:13)
--- NOTE | 2017-06-02 16:31 | XRAY Preliminary Report ---
Exam: XR Chest 2 View PA/LAT IMPRESSION: 1. No definite acute infiltrate. 2. Decrease in the mild bilateral interstitial prominence. 3. Previously described right nodular densities are less evident although there may be a subtle right lateral upper lung nodule. Continued follow-up is recommended. If further evaluation indicated, CT i maging would be recommended. [facility] SITE ID: [id number]
--- NOTE | 2017-06-02 16:34 | XRAY Report ---
EXAM: CHEST RADIOGRAPHY EXAM DATE: 06/02/2017 03:09 PM. CLINICAL HISTORY: Fever cough. COMPARISON: 05/10/2017. TECHNIQUE: 2 views, AP and lateral. FINDINGS: Lungs/Pleura: Mild right hemidiaphragm elevation again demonstrated. Mild bilateral interstitial prom inence overall appears mildly improved. Previously noted right pulmonary nodular densities are less e vident although subtle nodule projecting between the posterolateral right sixth and seventh ribs is n ot excluded. No focal consolidation. No pleural effusion or pneumothorax. Mediastinum: Heart size is at the upper range of normal and stable. Stable central venous port. Other: None. IMPRESSION: 1. No definite acute infiltrate. 2. Decrease in the mild bilateral interstitial prominence. 3. Previously described right nodular densities are less evident although there may be a subtle right lateral upper lung nodule. Continued follow-up is recommended. If further evaluation indicated, CT i maging would be recommended. [facility] Referring Provider Line: [phone] SITE ID: [id number]
[2017-06-02] MEDS ORDERED: ONDANSETRON ODT 4 MG TABLET TL PRN (16:52)
[2017-06-02] MEDS ORDERED: SODIUM CHLORIDE FLUSH 0.9% 10 ML SYRINGE IVP PRN (16:52)
[2017-06-02 16:53] LABS: INR 1.3 (0.8-1.2); PT - PROTHROMBIN TIME 14.7 secs (9.9-12.6)
[2017-06-02] MEDS ORDERED: CALCIUM CARBONATE CHEW 500 MG TABLET PO PRN (16:56)
[2017-06-02] MEDS ORDERED: WARFARIN 2.5 MG TABLET PO SCH (17:00)
[2017-06-02 17:20] LABS: IMMATURE RETIC FRACTION 0.57; RED BLOOD COUNT 3.18 10^6/uL (4.20-5.40)
--- NOTE | 2017-06-02 17:42 | CT Preliminary Report ---
Exam: CT Chest Angio (PE) IMPRESSION: 1. No evidence of pulmonary emboli. 2. Substantial interval improvement of previous pattern of bilateral scattered multifocal areas of pu lmonary consolidation and pulmonary nodules, with mild persistence. 2. Resolution of previous pleural effusions. 4. Mediastinal lymphadenopathy demonstrates areas of both mild improvement and mild increased. 5. Stable cardiac enlargement. 6. Probable cholelithiasis. 7. Partial demonstration of probable minimal right upper abdominal fluid, without change. 8. Height loss of the thoracic and lumbar vertebral bodies, without seymour change. [facility] SITE ID: [id number]
[2017-06-02] MEDS ORDERED: IOPAMIDOL-300 100 ML VIAL IVP ONE (17:43)
--- NOTE | 2017-06-02 17:45 | CT Report ---
EXAM: CT ANGIOGRAM CHEST EXAM DATE: 06/02/2017 05:17 PM. CLINICAL HISTORY: Dyspnea cough . COMPARISON: Standard chest CT with contrast 04/16/2017. TECHNIQUE: Routine helical imaging was performed through the chest in the pulmonary arterial phase. I V Contrast: 100 cc Isovue-300. Reconstructions: Coronal 3-D MIP reconstructions.Sagittal and coronal. In accordance with CT protocol optimization, one or more of the following dose reduction techniques w ere utilized for this exam: automated exposure control, adjustment of mA and/or KV based on patient s ize, or use of iterative reconstructive technique. FINDINGS: Pulmonary Arteries: Diagnostic quality: Adequate through the segmental arteries. No evidence for acute or chronic pulmona ry emboli. RV/LV is within normal limits. There is no interventricular septal bowing. There is no reflux of cont rast material in the IVC. Lungs/Pleura: Substantial improvement in the previous pattern of bilateral scattered multifocal conso lidation and multiple ill-defined and irregular pulmonary nodular densities. Mild residual scattered nodules. Consolidation within the medial left lower lobe, para-aortic region has substantially improv ed, with mild persistence. No new or progressive pulmonary opacities. The pleural effusions have reso lved. No pneumothorax. Stable mild right hemidiaphragm elevation. Mediastinum: Left central venous port again demonstrated. Distal end obscured by dense intravenous co ntrast. No evidence of extension beyond the SVC. Mild cardiac enlargement appears similar. No pericar dial effusion. Coronary artery calcifications redemonstrated. Mediastinal lymphadenopathy again demon strated. Decrease adenopathy in the AP window, short axis 0.9 cm, previously 1.4 cm. Decreased. Preca rinal, approximately 1.0 cm short axis, previously 1.4 cm. Subcarinal lymphadenopathy may measure as much is 2.3 cm, previously 1.8 cm. No hilar or axillary lymphadenopathy. Thoracic Aorta: Unremarkable. Upper Abdomen: Partial demonstration of apparent cholelithiasis. Probable minimal fluid in the tail board worker ior right hepatic region is without change. Other: Moderately severe compression deformity of L2 vertebral body. It was only partially included p reviously but is without gross change. Stable slight height loss of the T10 vertebral body. T11 infer ior endplate Schmorl's node redemonstrated. IMPRESSION: 1. No evidence of pulmonary emboli. 2. Substantial interval improvement of previous pattern of bilateral scattered multifocal areas of pu lmonary consolidation and pulmonary nodules, with mild persistence. 2. Resolution of previous pleural effusions. 4. Mediastinal lymphadenopathy demonstrates areas of both mild improvement and mild increased. 5. Stable cardiac enlargement. 6. Probable cholelithiasis. 7. Partial demonstration of probable minimal right upper abdominal fluid, without change. 8. Height loss of the thoracic and lumbar vertebral bodies, without seymour change. [facility] Referring Provider Line: [phone] SITE ID: [id number]
[2017-06-02 17:46] LABS: MAGNESIUM 1.8 mg/dL (1.7-2.8)
[2017-06-02] MEDS: SODIUM CHLORIDE FLUSH 0.9% 10 ML SYRINGE IVP SCH (17:48)
[2017-06-02] MEDS: SODIUM CHLORIDE 0.9% 1,000 ML IV SCH (17:48)
[2017-06-02] MEDS ORDERED: MAGNESIUM SULFATE 2 GRAM 50 ML IV SCH (17:51)
[2017-06-02 17:53] LABS: FERRITIN 164.5 ng/mL (11.0-306.8)
[2017-06-02] MEDS: NEUTRA-PHOS 250 MG TABLET PO SCH (18:03)
--- NOTE | 2017-06-02 19:24 | HISTORY & PHYSICAL EXAMINATION ---
DATE OF ADMISSION: 06/02/2017 PRIMARY CARE PROVIDER: Kevan Payan MD ADMITTING PROVIDER: Norma Sofia APRN CHIEF COMPLAINT: Cough, fever, chills, fatigue, and sweats for 3 days. HISTORY OF THE PRESENT ILLNESS: The patient is a very pleasant 87-year-old elderly female with a history of infiltrating ductal carcinoma of the breast, depression, osteoarthritis, fibromyalgia, chronic back pain, atrial fibrillation , hypertension, and hyperlipidemia. She presents with 3 days of cough, fever, and lower abdominal pain. She states that she has not felt well and she has been vomiting over the last few days and feeling weak. She stated that the symptoms began 3 days ago and have gradually been getting worse. She has had some chills, sweats, cough and urinary symptoms, including incontinence. She has not had these symptoms before. She has not recently been seen by a medical provider for these complications; however, she was admitted approximately a month and a half ago for similar symptoms and was diagnosed with a pneumonia. Upon CTA today, it was noted that she did not have a pneumonia; however, impression did show no pulmonary emboli, probable cholelithiasis, with minimal fluid in the posterior right hepatic region. She also has moderately severe compression deformity of the L2 vertebral body with significant osteoarthritis and height loss. The patient did have pain to the right upper quadrant with palpitation. She also has mediastinal lymphadenopathy and mild cardiac enlargement. There is no noted pneumonia or pericardial effusions. She did show a consolidation within the medial left lower lobe, which has substantially improved but with mild persistence. There were no new or progressive pulmonary opacities. Pleural effusions have evolved. No pneumothorax. Multiple ill- defined and irregular pulmonary nodule densities. Today on exam at bedside, the patient did have some right upper quadrant tenderness. She did admit to some nausea. She has had a fever lately. Recommendation to follow up with ultrasound of the abdomen to rule out possible worsening cholecystitis since the patient does have a fever and elevated white count of 14.8. She will be admitted inpatient for further evaluation and treatment. ALLERGIES 1. ASPIRIN. 2. SULFADIAZINE. 3. OXYCODONE. MEDICAL HISTORY: Atrial fibrillation with RVR. Past history of pneumonia, anemia of chronic disease with breast cancer, hypertension, hypothyroidism, osteoporosis, GERD, hemorrhoids, depression, and migraines. PAST SURGICAL HISTORY: Total hip replacement, left, subcapital fracture, left femur, humeral head fracture, distal radius fracture on the right, colonoscopy, hysterectomy, mastectomy, and rhinoplasty. HOME MEDICATIONS 1. Diltiazem. 2. Ambien. 3. Vitamin B. 4. Metoprolol succinate. 5. Levothyroxine. 6. Lasix. 7. Pepcid. 8. Digoxin. 9. Vitamin D. 10. Calcium carbonate. 11. Tessalon Perles. PAST FAMILY HISTORY: The patient states that she has a sister who is in relatively good health. Both brothers are , one from alcoholism, the other from brain cancer. Both parents have . The patient is unsure of what they from. PAST SURGICAL HISTORY: The patient does drink on occasion. She has never used cigarettes. She is a x 4 husbands. She does have 2 children. REVIEW OF SYSTEMS: Ten systems have been reviewed as negative with the exception to the positive discussed in HPI prior. She is positive for fever, tachycardia. She denies numbness or tingling to extremities. No respiratory distress. She is positive for nausea, vomiting. Denies constipation or diarrhea. Denies headache, hematuria or dysuria. PHYSICAL EXAMINATION CONSTITUTIONAL: The patient was alert, in no acute distress. EYES: Pupils equal, round, and react to light and accommodation. Conjunctivae and sclerae were nonicteric, not injected. EARS, NOSE, AND THROAT: Nares were patent. No nasal discharge. Oropharynx with no masses, exudates or lesions. Mucous membranes were moist. Neck is supple. No thyromegaly. RESPIRATORY: Breath sounds were clear and equal bilaterally to auscultation and percussion. No retractions, nasal flaring, or increased work of breathing. CARDIOVASCULAR: Tachycardic rate. Regular rhythm. S1, S2 noted. No rales, murmurs or rubs. GASTROINTESTINAL: Abdomen with tender right upper quadrant. Otherwise soft, nondistended. Bowel sounds active. No guarding or rebound. GENITOURINARY: No CVA tenderness. No masses palpable. No bladder distension. SKIN: Warm, dry, intact. Normal turgor. No evidence of rashes, lesions, or cellulitis. MUSCULOSKELETAL/EXTREMITIES: No cyanosis. Pulses are palpable. The patient is able to move upper and lower extremities without difficulty. There is some trace edema bilaterally to the lower extremities. NEUROLOGICAL: She is alert. Cranial nerves 2-12 grossly intact. Sensory is intact. No motor deficit. PSYCHIATRIC: Behavior was appropriate. Normal affect. Pleasant mood. GCS 15 and oriented x3. NECK: Supple. No evidence of thyromegaly. No meningeal sign. HEMATOLOGIC: No active bleeding. The patient was hemodynamically stable. LYMPHATIC: The patient has lymphadenopathy to right axillary. Otherwise, no cervical or supraclavicular lymphadenopathy is noted. VITAL SIGNS: Blood pressure is 91/58. Temperature 36.7. Heart rate 103. Respirations are 26. Oxygen saturation 93%. LABORATORY/DIAGNOSTIC DATA: I personally reviewed the laboratory and diagnostic data in the medical record. The results are as follows: WBC 14.8. MCV is 103.9. MCH 34.5. Hemoglobin 10.9, hematocrit 32.9. Sodium 129, potassium 4.3, chloride 94, BUN 17, total bilirubin 2.0, lipase 19, INR 1.3. LDH is 177. Urinalysis is positive for protein and moderate occult blood. DIAGNOSTICS: CT angio of chest impression shows no evidence of pulmonary emboli , no pleural effusion, no pneumonia. IMPRESSION AND PLAN 1. Acute febrile illness with mild cholelithiasis on CTA with leukocytosis. 2. [id number] atrial fibrillation with RVR. 3. Subtherapeutic INR with chronic atrial fibrillation. 4. 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 5. Hyponatremia, unspecified. 6. Hypophosphatemia. 7. Iron-deficiency anemia, unspecified. PLAN 1. The patient is to be admitted inpatient. 2. IV fluids for gentle hydration at 100ml/hr 3. Electrolyte replacement with fluids and monitoring of electrolytes with daily labs. replace phosphorus 4. ultrasound ordered for possible cholecystitis. Abdominal ultrasound, complete, requested. 5. Continue to monitor CBC daily and other electrolytes with kidney function 6. Continue to for anemia with iron panel. 7. Continue on home medications for atrial fibrillation, including metoprolol succinate, Cardizem and digoxin. Digoxin level has been checked. Continue on Synthroid for hypothyroidism and check thyroid panel. Magnesium sulfate 1 g since the patient's magnesium was on the low end at 1.8. Tylenol for fever. 8. The patient was on Coumadin and warfarin but has stopped taking these several months prior. PT and INR have been checked. . 9. Physical and Occupational Therapy for assessment and assist with ambulation. 10. Telemetry monitoring with cardiac enzymes trended. 11. Pending the ultrasound report, the patient will be able to eat but will need to be n.p.o. if ultrasound shows possibly cholecystitis. 12. DVT prophylaxis with Lovenox subcu and SCDs. TIME: Time spent on evaluation and assessment and planning was 40 minutes. RISK/DISPOSITION: The patient is at high risk for worsening comorbidities. She will require 2 midnight stay and will be receiving IV medication with high risk for toxicity. Additional IV medications and diagnostics have been ordered and to be given. STATUS: The patient is a FULL CODE status with DNR for no significant interventions. JOB #: [id number] EXT JOB #:[id number] MTDMonty
[2017-06-02] MEDS: CHOLECALCIFEROL 5,000 UNIT CAPSULE PO SCH (21:35)
[2017-06-02] MEDS: FAMOTIDINE 20 MG TABLET PO SCH (21:35)
[2017-06-03] MEDS ORDERED: diltiaZEM INJ 5 MG/ML VIAL IVP ONE ×2 (00:05→00:41)
[2017-06-03] MEDS ORDERED: METOPROLOL SUCCINATE 50 MG TABLET PO ONE ×2 (00:05→00:11)
[2017-06-03] MEDS ORDERED: diltiaZEM INJ 5 MG/ML VIAL ONE (00:12)
[2017-06-03] MEDS: BENZONATATE 100 MG CAPSULE PO PRN ×3 (00:22→20:27)
[2017-06-03] MEDS ORDERED: diltiaZEM INJ 5 MG/ML VIAL IVP SCH (00:33)
[2017-06-03] MEDS ORDERED: METOPROLOL SUCCINATE 50 MG TABLET PO SCH (00:34)
[2017-06-03] MEDS ORDERED: DIGOXIN 500 MCG/2 ML AMP IVP ONE (00:41)
[2017-06-03] MEDS: PIPERACILLIN/TAZOBACTAM 3.375 GM in SODIUM CHLORIDE 0.9% MINIBAG 100 ML IV SCH ×3 (01:28→13:10)
[2017-06-03] MEDS: BENZOCAINE/MENTHOL LOZENGE MM PRN ×2 (01:47→08:56)
[2017-06-03] MEDS: ACETAMINOPHEN 325 MG TABLET PO PRN ×2 (01:47→16:28)
[2017-06-03] MEDS: SODIUM CHLORIDE 0.9% 1,000 ML IV SCH (03:54)
[2017-06-03] MEDS: SODIUM CHLORIDE FLUSH 0.9% 10 ML SYRINGE IVP SCH ×3 (05:24→20:30)
[2017-06-03] MEDS: LEVOTHYROXINE 125 MCG TABLET PO SCH (06:29)
[2017-06-03 06:31] LABS: BASOPHILS % (AUTO) 0.2 %; EOSINOPHILS # (AUTO) 0.1 10^3/uL (0.0-0.7); EOSINOPHILS % (AUTO) 0.4 %; HCT - HEMATOCRIT 31.8 % (37.0-47.0); HGB - HEMOGLOBIN 10.3 g/dL (12.0-16.0); LYMPHOCYTES # (AUTO) 0.4 10^3/uL (1.5-3.5); LYMPHOCYTES % (AUTO) 2.5 %; MEAN CORPUSCULAR HEMOGLOBIN 34.2 pg (27.0-31.0); MEAN CORPUSCULAR HGB CONC 32.4 g/dL (32.0-36.0); MEAN CORPUSCULAR VOLUME 105.6 fL (81.0-99.0); MEAN PLATELET VOLUME 9.9 fL (7.9-10.8); MONOCYTES # (AUTO) 4.3 10^3/uL (0.0-1.0); MONOCYTES % (AUTO) 27.7 %; NEUTROPHILS # (AUTO) 10.6 10^3/uL (1.5-6.6); NEUTROPHILS % (AUTO) 69.2 %; NUCLEATED RED BLOOD CELLS AUTO 0.2 /100WBC; RED BLOOD COUNT 3.01 10^6/uL (4.20-5.40); UNCORRECTED WHITE BLOOD COUNT 15.4 x10^3/uL; WHITE BLOOD COUNT 15.4 x10^3/uL (4.8-10.8)
[2017-06-03 06:41] LABS: BILIRUBIN,TOTAL 1.1 mg/dL (0.2-1.0); CALCIUM 9.5 mg/dL (8.5-10.3); CREATININE 0.9 mg/dL (0.4-1.0); POTASSIUM 4.4 mmol/L (3.5-5.0); TOTAL PROTEIN 5.9 g/dL (6.7-8.2)
[2017-06-03 06:43] LABS: INR 1.2 (0.8-1.2); PT - PROTHROMBIN TIME 13.7 secs (9.9-12.6)
[2017-06-03 06:59] LABS: NP AUTO DIFFERENTIAL? NO; NP MAN DIFFERENTIAL? YES; PLATELET ESTIMATE, MANUAL DECREASED (<130,000) (NORMAL); PLATELET MORPHOLOGY NORMAL APPEARANCE (NORMAL)
--- NOTE | 2017-06-03 07:42 | PROVIDER PROGRESS NOTE ---
Assessment/Plan - Problem List (1) Pyelonephritis due to Escherichia coli Assessment/Plan: acute. patient had a CT of the abdomen that showed pyelonephritis with EColi bacteremia. She will continue on Zosyn IV. continue to follow daily CBC and lab draws. (2) Blood culture positive for microorganism Assessment/Plan: with bacteremia and positive for EColi. acute. positive for Gram negative Bacillli EColi. patient is on Zosyn at this time. change to 4.5mg Q 6 hours (3) Fever of unknown origin Assessment/Plan: acute with positive blood cultures with EColi. continue on Zosyn. CT of abdomen and pelvis pending to rule out acute process. tylenol for fever and pending urine cultures. lactic acid 1.5 (4) Atrial fibrillation with rapid ventricular response Assessment/Plan: chronic. continue on beta blockers for AFib. monitor on telemetry and vitals per protocol. patient will become tachycardia with fever. (5) Abdominal pain of unknown etiology Assessment/Plan: acute. patient had some mild cholethiasis on CTA. ultrasound complete and shows no acute cholecystitis. pain meds to continue as needed. patient is still NPO for repeat CT of sbdomen for possible diverticulitis versus performation. She has fever today and nausea. WBC is elevated. she is receiving Zosyn IV Q8 hours. amylase and lipase negative and bilirubin has improved. Dr Bower made aware of possible acute process of abdomen. (6) Breast cancer, right breast Qualifiers: Breast location: unspecified site of breast Patient sex: female Qualified Code(s): C50.911 - Malignant neoplasm of unspecified site of right female breast Assessment/Plan: resolved. patient still may have metastasis to lung or liver. pending other markers for evaluation with CT of abdomen and pelvis for pain. electrolytes monitored and CBC with daily labs (7) Hypothyroidism Qualifiers: Hypothyroidism type: unspecified Qualified Code(s): E03.9 - Hypothyroidism , unspecified Assessment/Plan: stable. continue on thyroid medication home dosage as prescribed. TSH within normal limits (8) Osteoporosis Qualifiers: Osteoporosis type: age-related Presence of current pathological fracture: with current pathological fracture Encounter type: subsequent encounter Fracture healing: with delayed healing Qualified Code(s): M80.00XG - Age- related osteoporosis with current pathological fracture, unspecified site, subsequent encounter for fracture with delayed healing Assessment/Plan: stable. continue to monitor for falls and encourage ambulation when tolerating with PT and nursing. vitamin D replacement daily. continue with calcium supplement daily. - Current Meds Current Meds: Current Medications Generic Name Dose Route Start Last Admin Trade Name Freq PRN Reason Stop Dose Admin Acetaminophen 650 mg 06/02/17 16:52 06/03/17 01:47 Tylenol PO 650 mg Q4HR PRN Administration Pain 1 to 4 Benzonatate 100 mg 06/02/17 16:56 06/03/17 00:22 Tessalon PO 100 mg TID PRN Administration Cough Cholecalciferol 5,000 unit 06/02/17 21:00 06/02/17 21:35 Vitamin D3 PO 5,000 unit BID MICHAEL Administration Famotidine 40 mg 06/02/17 21:00 06/02/17 21:35 Pepcid PO 40 mg QPM MICHAEL Administration Piperacillin Sod/Tazobactam 100 mls @ 200 mls/hr 06/03/17 01:00 06/03/17 06:29 Sod 3.375 gm/ Sodium Chloride IV 200 mls/hr Q6H MICHAEL Administration Levothyroxine Sodium 125 mcg 06/03/17 07:00 06/03/17 06:29 Synthroid PO 125 mcg QDAC MICHAEL Administration Sodium Chloride 10 ml 06/02/17 22:00 06/03/17 05:24 Normal Saline Flush 0.9% IVP Not Given Q8HR MICHAEL Sodium Phosphate 250 mg 06/02/17 18:00 06/02/17 18:03 K-Phos Neutral PO 250 mg TIDWM MICHAEL Administration Throat Lozenges 1 lozenge 06/03/17 01:04 06/03/17 01:47 Cepacol MM 1 lozenge Q2HR PRN Administration Throat pain - Lab Result Lab results reviewed: Yes Fish Bone Diagrams: 06/03/17 06:18 06/03/17 06:18 Other Lab Results: Abnormal Lab Results 06/02/17 06/02/17 06/02/17 15:19 15:19 15:19 WBC 14.8 x10^3/uL H x10^3/uL (4.8-10.8) RBC 3.17 10^6/uL L 10^6/uL (4.20-5.40) Hgb 10.9 g/dL L g/dL (12.0-16.0) Hct 32.9 % L % (37.0-47.0) MCV 103.9 fL H fL (81.0-99.0) MCH 34.5 pg H pg (27.0-31.0) RDW 17.2 % H % (12.0-15.0) Plt Count 66 10^3/uL L 10^3/uL (130-450) Neut # 11.0 10^3/uL H 10^3/uL (1.5-6.6) Lymph # 0.3 10^3/uL L 10^3/uL (1.5-3.5) [place] # 3.5 10^3/uL H 10^3/uL (0.0-1.0) PT 14.7 secs H secs (9.9-12.6) INR 1.3 H (0.8-1.2) Sodium 129 mmol/L L mmol/L (135-145) Chloride 94 mmol/L L mmol/L (101-111) Estimated GFR (MDRD) 60 L (>89) Glucose 180 mg/dL H mg/dL (70-100) Phosphorus Iron % Saturation Total Bilirubin 2.0 mg/dL H mg/dL (0.2-1.0) Total Protein Albumin Lipase 19 U/L L U/L (22-51) Urine Protein Urine Occult Blood Urine RBC Urine WBC Urine Bacteria 06/02/17 06/02/17 06/02/17 15:19 15:19 15:35 WBC RBC 3.18 10^6/uL L 10^6/uL (4.20-5.40) Hgb Hct MCV MCH RDW Plt Count Neut # Lymph # [place] # PT INR Sodium Chloride Estimated GFR (MDRD) Glucose Phosphorus 2.0 mg/dL L mg/dL (2.5-4.6) Iron 9 ug/dL L ug/dL (28-170) % Saturation 3 % L % (20-50) Total Bilirubin Total Protein Albumin Lipase Urine Protein 100 mg/dL H mg/dL (NEGATIVE) Urine Occult Blood MODERATE H (NEGATIVE) Urine RBC 6-10 /HPF H /HPF (0-5) Urine WBC 6-10 /HPF H /HPF (0-5) Urine Bacteria Many /HPF H /HPF (None Seen) 06/03/17 06/03/17 06/03/17 06:18 06:18 06:18 WBC 15.4 x10^3/uL H x10^3/uL (4.8-10.8) RBC 3.01 10^6/uL L 10^6/uL (4.20-5.40) Hgb 10.3 g/dL L g/dL (12.0-16.0) Hct 31.8 % L % (37.0-47.0) MCV 105.6 fL H fL (81.0-99.0) MCH 34.2 pg H pg (27.0-31.0) RDW 17.0 % H % (12.0-15.0) Plt Count 64 10^3/uL L 10^3/uL (130-450) Neut # 10.6 10^3/uL H 10^3/uL (1.5-6.6) Lymph # 0.4 10^3/uL L 10^3/uL (1.5-3.5) [place] # 4.3 10^3/uL H 10^3/uL (0.0-1.0) PT 13.7 secs H secs (9.9-12.6) INR Sodium 133 mmol/L L mmol/L (135-145) Chloride 100 mmol/L L mmol/L (101-111) Estimated GFR (MDRD) 60 L (>89) Glucose 120 mg/dL H mg/dL (70-100) Phosphorus Iron % Saturation Total Bilirubin 1.1 mg/dL H mg/dL (0.2-1.0) Total Protein 5.9 g/dL L g/dL (6.7-8.2) Albumin 3.0 g/dL L g/dL (3.2-5.5) Lipase Urine Protein Urine Occult Blood Urine RBC Urine WBC Urine Bacteria - EKG Results EKG Interpreted Independently: Yes - Diagnostic Imaging Results Diagnostic Imaging Results: Prelim report reviewed Diagnostic Imaging Results Comments: ultrasound shows mobile cholelithiasis without evidence of cholecystitis. no fluid or gallbladder wall thickening. no murphys sign - Other Other Results/Comments: Pending results from CT of abdomen and pelvis with contrast oral - Additional Planning Condition/Complexity: Guarded My Orders: My Active Orders 06/02/17 16:56 Benzonatate [Tessalon] 100 mg PO TID PRN Calcium Carbonate [Tums] 500 mg PO BID PRN 06/02/17 18:00 Neutra-Phos [K-Phos Neutral] 250 mg PO TIDWM 06/02/17 18:15 Abdomen Complete [US] Stat 06/02/17 21:00 Cholecalciferol [Vitamin D3] 5,000 unit PO BID Famotidine [Pepcid] 40 mg PO QPM 06/03/17 00:01 NPO [DIET] 06/03/17 01:04 Benzocaine/Menthol [Cepacol] 1 lozenge MM Q2HR PRN 06/03/17 07:00 Levothyroxine [Synthroid] 125 mcg PO QDAC 06/03/17 08:00 Lactated Ringers [Lr] 1,000 ml IV 125 mls/hr 06/03/17 09:00 Digoxin [Lanoxin] 125 mcg PO DAILY Metoprolol Succinate [Toprol Xl] 100 mg PO DAILY diltiaZEM CD [Cardizem Cd] 180 mg PO DAILY 06/04/17 05:00 CBC - COMP BLD CT W/AUTO DIFF [HEME] DAILYLAB CMP [COMPREHENSIVE METABOLIC PANEL] [CHEM] DAILYLAB MAGNESIUM [CHEM] DAILYLAB Consult/Specialty: OT, PT, Surgery Time Spent: 31-60 minutes Subjective - Subjective Patient Reports: Resting Comfortably Objective Vital Signs: Vital Signs - 24 hr 06/02/17 06/02/17 06/02/17 17:56 20:00 23:39 Temperature 37 C 36.4 C L 36.8 C Heart Rate Heart Rate [ 115 H 120 H 125 H Brachial] Respiratory 16 20 16 Rate Blood Pressure Blood Pressure 106/62 98/64 124/86 H [Left Brachial artery] O2 Saturation 96 96 97 06/03/17 06/03/17 06/03/17 00:14 00:48 00:52 Temperature Heart Rate 131 H Heart Rate [ Brachial] Respiratory Rate Blood Pressure 121/91 H 163/92 H Blood Pressure [Left Brachial artery] O2 Saturation 06/03/17 06/03/17 06/03/17 01:00 01:05 01:10 Temperature Heart Rate Heart Rate [ 137 H 120 H 118 H Brachial] Respiratory Rate Blood Pressure Blood Pressure 143/86 H 130/61 135/77 H [Left Brachial artery] O2 Saturation 06/03/17 06/03/17 06/03/17 01:15 01:30 05:00 Temperature 37.0 C Heart Rate Heart Rate [ 112 H 125 H 104 H Brachial] Respiratory 16 Rate Blood Pressure Blood Pressure 133/81 H 129/71 102/66 [Left Brachial artery] O2 Saturation 95 Oxygen O2 Source Room air I&O (Last 24 Hrs): Intake and Output Totals x24h 06/01/17 06/02/17 06/03/17 23:59 23:59 23:59 Intake Total 526 666 Balance 526 666 General: Alert, Oriented x3 HEENT: PERRLA Neck: Supple, No JVD Neuro: Alert, CN 2-12 Grossly Intact, Oriented Times 3 Cardiovascular: Normal S1, Normal S2 Respiratory: No respiratory distress, Breath sounds nml Skin: No rashes, No breakdown - Results Results: Laboratory Results WBC 15.4 x10^3/uL (4.8-10.8) H 06/03/17 06:18 RBC 3.01 10^6/uL (4.20-5.40) L 06/03/17 06:18 Hgb 10.3 g/dL (12.0-16.0) L 06/03/17 06:18 Hct 31.8 % (37.0-47.0) L 06/03/17 06:18 MCV 105.6 fL (81.0-99.0) H 06/03/17 06:18 MCH 34.2 pg (27.0-31.0) H 06/03/17 06:18 MCHC 32.4 g/dL (32.0-36.0) 06/03/17 06:18 RDW 17.0 % (12.0-15.0) H 06/03/17 06:18 Plt Count 64 10^3/uL (130-450) L 06/03/17 06:18 MPV 9.9 fL (7.9-10.8) 06/03/17 06:18 Reticulocyte % (Auto) 2.25 % (0.5-2.3) 06/02/17 15:19 Neut # 10.6 10^3/uL (1.5-6.6) H 06/03/17 06:18 Lymph # 0.4 10^3/uL (1.5-3.5) L 06/03/17 06:18 [place] # 4.3 10^3/uL (0.0-1.0) H 06/03/17 06:18 Eos # 0.1 10^3/uL (0.0-0.7) 06/03/17 06:18 Baso # 0.0 10^3/uL (0.0-0.1) 06/03/17 06:18 Absolute Nucleated RBC 0.03 x10^3/uL 06/03/17 06:18 Band Neuts % (Manual) Not Reportable 06/03/17 06:18 Nucleated RBCs 0.2 /100WBC 06/03/17 06:18 Differential Comment MANUAL=AUTO DIFF 06/03/17 06:18 Manual Slide Review Indicated 06/02/17 15:19 Platelet Estimate DECREASED (<130,000) (NORMAL) 06/03/17 06:18 Platelet Morphology NORMAL APPEARANCE (NORMAL) 06/03/17 06:18 RBC Morph Micro Appear NORMAL APPEARANCE (NORMAL) 06/03/17 06:18 Absolute Retic 0.071 10^6/uL (0.020-0.110) 06/02/17 15:19 PT 13.7 secs (9.9-12.6) H 06/03/17 06:18 INR 1.2 (0.8-1.2) 06/03/17 06:18 Sodium 133 mmol/L (135-145) L 06/03/17 06:18 Potassium 4.4 mmol/L (3.5-5.0) 06/03/17 06:18 Chloride 100 mmol/L (101-111) L 06/03/17 06:18 Carbon Dioxide 27 mmol/L (21-32) 06/03/17 06:18 Anion Gap 6.0 (6-13) 06/03/17 06:18 BUN 18 mg/dL (6-20) 06/03/17 06:18 Creatinine 0.9 mg/dL (0.4-1.0) 06/03/17 06:18 Estimated GFR (MDRD) 60 (>89) L 06/03/17 06:18 Glucose 120 mg/dL (70-100) H 06/03/17 06:18 Lactic Acid 1.7 mmol/L (0.5-2.2) 06/02/17 15:19 Calcium 9.5 mg/dL (8.5-10.3) 06/03/17 06:18 Phosphorus 2.0 mg/dL (2.5-4.6) L 06/02/17 15:19 Magnesium 1.8 mg/dL (1.7-2.8) 06/02/17 15:19 Iron 9 ug/dL (28-170) L 06/02/17 15:19 TIBC 297 ug/dL (250-450) 06/02/17 15:19 % Saturation 3 % (20-50) L 06/02/17 15:19 Transferrin 212 mg/dL (192-382) 06/02/17 15:19 Ferritin 164.5 ng/mL (11.0-306.8) 06/02/17 15:19 Total Bilirubin 1.1 mg/dL (0.2-1.0) H 06/03/17 06:18 AST 20 IU/L (10-42) 06/03/17 06:18 ALT 20 IU/L (10-60) 06/03/17 06:18 Alkaline Phosphatase 57 IU/L (42-121) 06/03/17 06:18 Lactate Dehydrogenase 177 IU/L (91-225) 06/02/17 15:19 Troponin I < 0.04 ng/mL (<0.49) 06/02/17 15:19 Total Protein 5.9 g/dL (6.7-8.2) L 06/03/17 06:18 Albumin 3.0 g/dL (3.2-5.5) L 06/03/17 06:18 Globulin 2.9 g/dL (2.1-4.2) 06/03/17 06:18 Albumin/Globulin Ratio 1.0 (1.0-2.2) 06/03/17 06:18 Amylase 32 U/L (28-100) 06/02/17 15:19 Lipase 19 U/L (22-51) L 06/02/17 15:19 Vitamin B12 567 pg/mL (180-914) 06/02/17 15:19 TSH 1.53 uIU/mL (0.34-5.60) 06/02/17 15:19 Urine Color YELLOW 06/02/17 15:35 Urine Clarity CLOUDY (CLEAR) 06/02/17 15:35 Urine pH 6.0 PH (5.0-7.5) 06/02/17 15:35 Ur Specific [place] 1.020 (1.002-1.030) 06/02/17 15:35 Urine Protein 100 mg/dL (NEGATIVE) H 06/02/17 15:35 Urine Glucose (UA) NEGATIVE mg/dL (NEGATIVE) 06/02/17 15:35 Urine Ketones NEGATIVE mg/dL (NEGATIVE) 06/02/17 15:35 Urine Occult Blood MODERATE (NEGATIVE) H 06/02/17 15:35 Urine Nitrite NEGATIVE (NEGATIVE) 06/02/17 15:35 Urine Bilirubin NEGATIVE (NEGATIVE) 06/02/17 15:35 Urine Urobilinogen 0.2 (NORMAL) E.U./dL (NORMAL) 06/02/17 15:35 Ur Leukocyte Esterase NEGATIVE (NEGATIVE) 06/02/17 15:35 Urine RBC 6-10 /HPF (0-5) H 06/02/17 15:35 Urine WBC 6-10 /HPF (0-5) H 06/02/17 15:35 Ur Squamous Epith Cells NONE SEEN (<= Few) 06/02/17 15:35 Urine Bacteria Many /HPF (None Seen) H 06/02/17 15:35 Ur Microscopic Review INDICATED 06/02/17 15:35 Urine Culture Comments INDICATED 06/02/17 15:35 - Procedures Procedures: Procedures COLONOSCOPY (02/03/15) EXCISION OF RIGHT AXILLARY LYMPHATIC, OPEN APPROACH, DIAGN (04/04/16) INSERTION OF INFUSION DEV INTO SUP VENA CAVA, PERC APPROACH (05/02/16) INSERTION OF VAD INTO CHEST SUBCU/FASCIA, PERC APPROACH (05/02/16) REPLACE L HIP JT W METAL ON POLY, UNCEMENT, OPEN (09/14/16) RESECTION OF RIGHT BREAST, OPEN APPROACH (04/04/16) TRANSFUSE NONAUT FROZEN PLASMA IN PERIPH VEIN, PERC (09/14/16)
[2017-06-03] MEDS: LACTATED RINGERS 1,000 ML IV SCH ×2 (08:12→19:18)
[2017-06-03] MEDS: diltiaZEM CD 180 MG CAPSULE PO SCH (08:56)
[2017-06-03] MEDS: METOPROLOL SUCCINATE 50 MG TABLET PO SCH (08:56)
[2017-06-03] MEDS: NEUTRA-PHOS 250 MG TABLET PO SCH ×3 (08:56→16:27)
[2017-06-03] MEDS: CHOLECALCIFEROL 5,000 UNIT CAPSULE PO SCH ×2 (08:56→20:27)
[2017-06-03] MEDS: DIGOXIN 125 MCG TABLET PO SCH (08:56)
[2017-06-03] MEDS: POLYETHYLENE GLYCOL 3350 17 GM PACKET PO SCH (08:56)
[2017-06-03] MEDS ORDERED: ENOXAPARIN 40 MG/0.4 ML SYRINGE SUBQ SCH (09:00)
[2017-06-03] MEDS ORDERED: CHOLECALCIFEROL 5,000 UNIT CAPSULE PO SCH (09:00)
[2017-06-03] MEDS ORDERED: ACETAMINOPHEN 1,000 MG/100 ML 100 ML IV ONE ×2 (11:07→11:09)
--- NOTE | 2017-06-03 11:10 | Ultrasound Preliminary Report ---
Exam: US Abdomen Complete IMPRESSION: Mobile cholelithiasis without sonographic evidence of cholecystitis. No pericholecystic f luid or gallbladder wall thickening and negative sonographic Duff's sign. [facility] SITE ID: [id number]
--- NOTE | 2017-06-03 11:12 | Ultrasound Report ---
EXAM: ABDOMEN ULTRASOUND EXAM DATE: 06/03/2017 09:00 AM. CLINICAL HISTORY: Cholelithiasis with fever and elevated WBC. COMPARISON: 04/15/2017 CT pelvis. TECHNIQUE: Real-time scanning was performed with static images obtained. FINDINGS: Liver: Normal in size and echotexture. 14 cm. Main portal vein flow: Hepatopetal. Gallbladder: Mobile cholelithiasis. Gall bladder wall is non-thickened. Negative sonographic Duff s ign. Biliary System: Common bile duct measures 4.4 mm. No intrahepatic or extrahepatic ductal dilatation. Pancreas: Visualized portion is unremarkable. Kidneys: Right: 11.8 cm longitudinally. Normal. No contour-deforming mass, stones, or hydronephrosis. Left: 11.4 cm longitudinally. Normal. No contour-deforming mass, stones, or hydronephrosis. Spleen: 9.3 cm. Normal in size and echotexture. Aorta and Inferior Vena Cava: Aorta unremarkable in size. IVC within normal limits. IMPRESSION: Mobile cholelithiasis without sonographic evidence of cholecystitis. No pericholecystic f luid or gallbladder wall thickening and negative sonographic Duff's sign. [facility] Referring Provider Line: [phone] SITE ID: [id number]
[2017-06-03] MEDS: PIPERACILLIN/TAZOBACTAM 4.5 GM in SODIUM CHLORIDE 0.9% MINIBAG 100 ML IV SCH ×2 (13:44→19:18)
[2017-06-03] MEDS ORDERED: WARFARIN 5 MG TABLET PO SCH (14:00)
--- NOTE | 2017-06-03 14:54 | CT Report ---
EXAM: CT ABDOMEN AND PELVIS (CT KUB) EXAM DATE: 06/03/2017 02:10 PM. CLINICAL HISTORY: Abdominal pain. COMPARISONS: CT abdomen and pelvis with IV contrast 04/15/2017. TECHNIQUE: Routine axial helical CT imaging was performed through the abdomen and pelvis without IV c ontrast. Oral contrast: Yes. Reconstructions: Coronal and sagittal. In accordance with CT protocol optimization, one or more of the following dose reduction techniques w ere utilized for this exam: automated exposure control, adjustment of mA and/or KV based on patient s ize, or use of iterative reconstructive technique. FINDINGS: Lung Bases: Compared with the most recent CT abdomen pelvis there has been marked improvement in the bilateral patchy lower lung pulmonary nodules and groundglass densities, with some small residual nod ules, but without change from the CT angiogram of the chest from yesterday. Trace left pleural effusi on, improved. Stable cardiac enlargement. Coronary artery calcifications. Mild retained oral refluxed contrast within the distal esophagus. Right Kidney/Ureter: No gross stones. Evidence of mild interval increase in the size of the kidney, i ncreased perinephric stranding and new periureteral stranding, without hydronephrosis or hydroureter to suggest obstruction. There is patchy and streaky high density within the renal parenchyma compatib le some mild retained contrast from CT angiogram of the previous day. This combination of findings is nonspecific but indicate pyelonephritis. Small amount of excreted contrast is seen within the nondil ated pelvis. Left Kidney/Ureter: No definite stones. No hydronephrosis or hydroureter. Small amount of excreted co ntrast within the renal pelvis and ureter. Other solid Organs: Hepatic enlargement again noted. Stable mild left adrenal gland prominence. Othe rwise, noncontrast images of the solid organs are grossly unremarkable. Gallbladder/Bile Ducts: Cholelithiasis redemonstrated. Some increased layering density within the gal lbladder since the previous day likely represents vicarious excretion of contrast. No definite ductal dilatation. Peritoneal Cavity: Small amount of free fluid within the pelvis appears similar. No gross adenopathy. No free air. No bowel dilatation/obstruction. Colonic diverticulosis without seymour diverticulitis. Pelvic Organs: Limited evaluation due to artifact from the left hip arthroplasty. Excreted contrast m ildly distends the bladder. No gross bladder abnormality. Vasculature: . Atherosclerotic calcifications demonstrated. No aortic aneurysm. Other: None. IMPRESSION: 1. Noncontrast imaging demonstrates interval mild increase in size right kidney, mild renal heterogen icity and asymmetric retained intravenous contrast and increased and new perinephric and periureteral stranding, without hydronephrosis or hydroureter. This is nonspecific but could represent a UTI and right pyelonephritis. 2. No definite urolithiasis. 3. Small amount of free pelvic fluid. 4. Trace left pleural effusion. 5. Additional chronic findings, as above. [facility] Referring Provider Line: [phone] SITE ID: [id number]
[2017-06-03] MEDS: FAMOTIDINE 20 MG TABLET PO SCH (20:27)
[2017-06-03] MEDS: traZODone 50 MG TABLET PO PRN (21:33)
[2017-06-04] MEDS: PIPERACILLIN/TAZOBACTAM 4.5 GM in SODIUM CHLORIDE 0.9% MINIBAG 100 ML IV SCH ×2 (01:15→06:59)
[2017-06-04] MEDS: LACTATED RINGERS 1,000 ML IV SCH ×2 (01:55→03:57)
[2017-06-04 06:28] LABS: MONOCYTES # (AUTO) 2.7 10^3/uL (0.0-1.0); RED BLOOD COUNT 3.11 10^6/uL (4.20-5.40)
[2017-06-04 06:31] LABS: BASOPHILS % (AUTO) 0.2 %; EOSINOPHILS % (AUTO) 0.3 %; HCT - HEMATOCRIT 32.6 % (37.0-47.0); HGB - HEMOGLOBIN 10.7 g/dL (12.0-16.0); LYMPHOCYTES # (AUTO) 0.6 10^3/uL (1.5-3.5); LYMPHOCYTES % (AUTO) 5.7 %; MEAN CORPUSCULAR HEMOGLOBIN 34.5 pg (27.0-31.0); MEAN CORPUSCULAR HGB CONC 32.9 g/dL (32.0-36.0); MEAN CORPUSCULAR VOLUME 104.8 fL (81.0-99.0); MEAN PLATELET VOLUME 10.3 fL (7.9-10.8); MONOCYTES % (AUTO) 26.3 %; NEUTROPHILS # (AUTO) 6.8 10^3/uL (1.5-6.6); NEUTROPHILS % (AUTO) 67.5 %; NUCLEATED RED BLOOD CELLS AUTO 0.4 /100WBC; RED CELL DISTRIBUTION WIDTH 16.8 % (12.0-15.0); UNCORRECTED WHITE BLOOD COUNT 10.1 x10^3/uL; WHITE BLOOD COUNT 10.1 x10^3/uL (4.8-10.8)
[2017-06-04 06:42] LABS: ALBUMIN/GLOBULIN RATIO 0.9 (1.0-2.2); BILIRUBIN,TOTAL 1.3 mg/dL (0.2-1.0); CALCIUM 9.4 mg/dL (8.5-10.3); CREATININE 0.8 mg/dL (0.4-1.0); MAGNESIUM 1.7 mg/dL (1.7-2.8)
[2017-06-04] MEDS: LEVOTHYROXINE 125 MCG TABLET PO SCH (06:59)
[2017-06-04 07:02] LABS: NP AUTO DIFFERENTIAL? NO; NP MAN DIFFERENTIAL? YES; PLATELET ESTIMATE, MANUAL DECREASED (<130,000) (NORMAL); PLATELET MORPHOLOGY NORMAL APPEARANCE (NORMAL)
[2017-06-04] MEDS: METOPROLOL SUCCINATE 50 MG TABLET PO SCH (08:10)
[2017-06-04] MEDS: diltiaZEM CD 180 MG CAPSULE PO SCH (08:10)
[2017-06-04] MEDS: CHOLECALCIFEROL 5,000 UNIT CAPSULE PO SCH ×2 (08:11→21:30)
[2017-06-04] MEDS: NEUTRA-PHOS 250 MG TABLET PO SCH ×3 (08:11→18:11)
[2017-06-04] MEDS: DIGOXIN 125 MCG TABLET PO SCH (08:11)
[2017-06-04] MEDS: BENZONATATE 100 MG CAPSULE PO PRN (08:11)
[2017-06-04] MEDS: ACETAMINOPHEN 325 MG TABLET PO PRN ×2 (08:11→15:05)
[2017-06-04] MEDS: SODIUM CHLORIDE FLUSH 0.9% 10 ML SYRINGE IVP SCH ×3 (08:44→21:34)
[2017-06-04] MEDS ORDERED: MAGNESIUM SULFATE 2 GRAM 50 ML IV ONE (09:15)
[2017-06-04] MEDS: SODIUM CHLORIDE 0.9% 1,000 ML IV SCH ×2 (09:27→21:34)
[2017-06-04] MEDS: POLYETHYLENE GLYCOL 3350 17 GM PACKET PO SCH ×2 (09:27→10:46)
--- NOTE | 2017-06-04 11:24 | PROVIDER PROGRESS NOTE ---
Assessment/Plan - Problem List (1) Pyelonephritis due to Escherichia coli Assessment/Plan: improving. Zosyn stopped and Levaquin started since sensitivities showed resistance to Zosyn. Patient white count decreased and feeling better today with no fever. She does still have pain in the right lower/upper abdomen today. continue with medications for pain. (2) Blood culture positive for microorganism Assessment/Plan: improving. WBC decreased. continue to monitor with daily labs. Levaquin 750mg IV and Zosyn stopped (3) Fever of unknown origin Assessment/Plan: resolved. patient has had no fever today. she is taking tylenol for fevers. (4) Atrial fibrillation with rapid ventricular response Assessment/Plan: stable. continue on blood pressure and AFibs medications. telemetry monitoring (5) Abdominal pain of unknown etiology Assessment/Plan: resolving. continue to monitor for changes. zofran and phenergan for nausea and vomiting. continue with pain medications as prescribed. (6) Breast cancer, right breast Qualifiers: Breast location: unspecified site of breast Patient sex: female Qualified Code(s): C50.911 - Malignant neoplasm of unspecified site of right female breast Assessment/Plan: stable (7) Hypothyroidism Qualifiers: Hypothyroidism type: unspecified Qualified Code(s): E03.9 - Hypothyroidism , unspecified Assessment/Plan: stable. continue on home dosage of thyroid medication (8) Osteoporosis Qualifiers: Osteoporosis type: age-related Presence of current pathological fracture: with current pathological fracture Encounter type: subsequent encounter Fracture healing: with delayed healing Qualified Code(s): M80.00XG - Age- related osteoporosis with current pathological fracture, unspecified site, subsequent encounter for fracture with delayed healing Assessment/Plan: stable. continue with vitamin D supplementation - Current Meds Current Meds: Current Medications Generic Name Dose Route Start Last Admin Trade Name Freq PRN Reason Stop Dose Admin Acetaminophen 650 mg 06/02/17 16:52 06/04/17 08:11 Tylenol PO 650 mg Q4HR PRN Administration Pain 1 to 4 Benzonatate 100 mg 06/02/17 16:56 06/04/17 08:11 Tessalon PO 100 mg TID PRN Administration Cough Cholecalciferol 5,000 unit 06/02/17 21:00 06/04/17 08:11 Vitamin D3 PO 5,000 unit BID MICHAEL Administration Digoxin 125 mcg 06/03/17 09:00 06/04/17 08:11 Lanoxin PO 125 mcg DAILY MICHAEL Administration Diltiazem HCl 180 mg 06/03/17 09:00 06/04/17 08:10 Cardizem Cd PO 180 mg DAILY MICHAEL Administration Famotidine 40 mg 06/02/17 21:00 06/03/17 20:27 Pepcid PO 40 mg QPM MICHAEL Administration Sodium Chloride 1,000 mls @ 125 mls/hr 06/04/17 09:00 06/04/17 09:27 Normal Saline 0.9% IV 125 mls/hr .Q8H MICHAEL Administration Levothyroxine Sodium 125 mcg 06/03/17 07:00 06/04/17 06:59 Synthroid PO 125 mcg QDAC MICHAEL Administration Metoprolol Succinate 100 mg 06/03/17 09:00 06/04/17 08:10 Toprol Xl PO 100 mg DAILY MICHAEL Administration Ondansetron HCl 4 mg 06/02/17 16:52 06/04/17 08:11 Zofran Odt TL 4 mg Q6HR PRN Administration Nausea / Vomiting Polyethylene Glycol 17 gm 06/03/17 09:00 06/04/17 10:46 Miralax PO Not Given DAILY MICHAEL Sodium Chloride 10 ml 06/02/17 22:00 06/04/17 08:44 Normal Saline Flush 0.9% IVP Not Given Q8HR MICHAEL Sodium Phosphate 250 mg 06/02/17 18:00 06/04/17 08:11 K-Phos Neutral PO 250 mg TIDWM MICHAEL Administration Throat Lozenges 1 lozenge 06/03/17 01:04 06/03/17 08:56 Cepacol MM 1 lozenge Q2HR PRN Administration Throat pain Trazodone HCl 50 mg 06/02/17 23:33 06/03/17 21:33 Desyrel PO 50 mg QPM PRN Administration Insomnia - Lab Result Lab results reviewed: Yes Fish Bone Diagrams: 06/04/17 06:00 06/04/17 06:00 Other Lab Results: Abnormal Lab Results 06/03/17 06/03/17 06/03/17 06:18 06:18 06:18 WBC 15.4 x10^3/uL H x10^3/uL (4.8-10.8) RBC 3.01 10^6/uL L 10^6/uL (4.20-5.40) Hgb 10.3 g/dL L g/dL (12.0-16.0) Hct 31.8 % L % (37.0-47.0) MCV 105.6 fL H fL (81.0-99.0) MCH 34.2 pg H pg (27.0-31.0) RDW 17.0 % H % (12.0-15.0) Plt Count 64 10^3/uL L 10^3/uL (130-450) Neut # 10.6 10^3/uL H 10^3/uL (1.5-6.6) Lymph # 0.4 10^3/uL L 10^3/uL (1.5-3.5) [place] # 4.3 10^3/uL H 10^3/uL (0.0-1.0) PT 13.7 secs H secs (9.9-12.6) Sodium 133 mmol/L L mmol/L (135-145) Chloride 100 mmol/L L mmol/L (101-111) Estimated GFR (MDRD) 60 L (>89) Glucose 120 mg/dL H mg/dL (70-100) Total Bilirubin 1.1 mg/dL H mg/dL (0.2-1.0) Total Protein 5.9 g/dL L g/dL (6.7-8.2) Albumin 3.0 g/dL L g/dL (3.2-5.5) Albumin/Globulin Ratio 06/04/17 06/04/17 06:00 06:00 WBC RBC 3.11 10^6/uL L 10^6/uL (4.20-5.40) Hgb 10.7 g/dL L g/dL (12.0-16.0) Hct 32.6 % L % (37.0-47.0) MCV 104.8 fL H fL (81.0-99.0) MCH 34.5 pg H pg (27.0-31.0) RDW 16.8 % H % (12.0-15.0) Plt Count 67 10^3/uL L 10^3/uL (130-450) Neut # 6.8 10^3/uL H 10^3/uL (1.5-6.6) Lymph # 0.6 10^3/uL L 10^3/uL (1.5-3.5) [place] # 2.7 10^3/uL H 10^3/uL (0.0-1.0) PT Sodium 131 mmol/L L mmol/L (135-145) Chloride 96 mmol/L L mmol/L (101-111) Estimated GFR (MDRD) 68 L (>89) Glucose 111 mg/dL H mg/dL (70-100) Total Bilirubin 1.3 mg/dL H mg/dL (0.2-1.0) Total Protein 6.0 g/dL L g/dL (6.7-8.2) Albumin 2.8 g/dL L g/dL (3.2-5.5) Albumin/Globulin Ratio 0.9 L (1.0-2.2) - EKG Results EKG Interpreted Independently: No - Diagnostic Imaging Results Diagnostic Imaging Results: Final report reviewed Diagnostic Imaging Results Comments: CT of abdomen and pelvis shows probably pylenephritis with stranding - Additional Planning Condition/Complexity: Improved My Orders: My Active Orders 06/04/17 09:00 Sodium Chloride 0.9% [Normal Saline 0.9%] 1,000 ml IV 125 mls/hr 06/04/17 12:00 Piperacillin/Tazobactam [Zosyn] 4.5 gm Sodium Chloride 0.9% Minibag [Normal Saline 0.9% Minibag] 100 ml IV Q6H Consult/Specialty: OT, PT, Surgery Plan Discussed with:: Patient, Case Management Time Spent: 31-60 minutes (plan for patient to be discharge home in the next 24- 48 hours. WBC improving and patient abdominal pain improving. She is starting to advance her diet.) Subjective - Subjective Patient Reports: Feeling Better, Resting Comfortably, No Complaints Nursing Reports: No Complaints (denies shortness of breath or chest pain. no nausea or vomiting. no constipation.) Objective Vital Signs: Vital Signs - 24 hr 06/03/17 06/03/17 06/03/17 11:20 11:54 16:15 Temperature 38.5 C H 37.6 C H 36.9 C Heart Rate [ 96 Brachial] Respiratory 20 Rate Blood Pressure 97/59 L [Left Brachial artery] O2 Saturation 96 0706/04/17 06/04/17 20:18 00:11 05:00 Temperature 36.8 C 37.4 C 37.6 C H Heart Rate [ 96 99 107 H Brachial] Respiratory 20 24 16 Rate Blood Pressure 101/63 108/62 123/74 [Left Brachial artery] O2 Saturation 96 95 94 06/04/17 09:00 Temperature 36.7 C Heart Rate [ 94 Brachial] Respiratory 14 Rate Blood Pressure 112/80 [Left Brachial artery] O2 Saturation 94 Oxygen O2 Source Room air I&O (Last 24 Hrs): Intake and Output Totals x24h 06/02/17 06/03/17 06/04/17 23:59 23:59 23:59 Intake Total 526 3449 1561 Balance 526 3449 1561 General: Alert, Oriented x3, Cooperative HEENT: Atraumatic, PERRLA Neck: Supple, No JVD Lymphatic: no adenopathy Neuro: Alert, CN 2-12 Grossly Intact, Oriented Times 3 Cardiovascular: Regular rate, Normal S1, Normal S2 Respiratory: Chest non-tender, No respiratory distress, Breath sounds nml Abdomen: Normal bowel sounds, Soft, No hepatospenomegaly, No masses (tenderness to right lower an upper quadrant) Genitourinary: No Discharge Extremities: No clubbing, No cyanosis, No edema, Normal pulses, No tenderness/ swelling Skin: No rashes, No breakdown, No significant lesion - Results Results: Laboratory Results WBC 10.1 x10^3/uL (4.8-10.8) 06/04/17 06:00 RBC 3.11 10^6/uL (4.20-5.40) L 06/04/17 06:00 Hgb 10.7 g/dL (12.0-16.0) L 06/04/17 06:00 Hct 32.6 % (37.0-47.0) L 06/04/17 06:00 MCV 104.8 fL (81.0-99.0) H 06/04/17 06:00 MCH 34.5 pg (27.0-31.0) H 06/04/17 06:00 MCHC 32.9 g/dL (32.0-36.0) 06/04/17 06:00 RDW 16.8 % (12.0-15.0) H 06/04/17 06:00 Plt Count 67 10^3/uL (130-450) L 06/04/17 06:00 MPV 10.3 fL (7.9-10.8) 06/04/17 06:00 Reticulocyte % (Auto) 2.25 % (0.5-2.3) 06/02/17 15:19 Neut # 6.8 10^3/uL (1.5-6.6) H 06/04/17 06:00 Lymph # 0.6 10^3/uL (1.5-3.5) L 06/04/17 06:00 [place] # 2.7 10^3/uL (0.0-1.0) H 06/04/17 06:00 Eos # 0.0 10^3/uL (0.0-0.7) 06/04/17 06:00 Baso # 0.0 10^3/uL (0.0-0.1) 06/04/17 06:00 Absolute Nucleated RBC 0.04 x10^3/uL 06/04/17 06:00 Band Neuts % (Manual) Not Reportable 06/04/17 06:00 Nucleated RBCs 0.4 /100WBC 06/04/17 06:00 Differential Comment MANUAL=AUTO DIFF 06/04/17 06:00 Manual Slide Review Indicated 06/02/17 15:19 Platelet Estimate DECREASED (<130,000) (NORMAL) 06/04/17 06:00 Platelet Morphology NORMAL APPEARANCE (NORMAL) 06/04/17 06:00 RBC Morph Micro Appear NORMAL ZOHAIB (NORMAL) 06/04/17 06:00 Absolute Retic 0.071 10^6/uL (0.020-0.110) 06/02/17 15:19 PT 13.7 secs (9.9-12.6) H 06/03/17 06:18 INR 1.2 (0.8-1.2) 06/03/17 06:18 Sodium 131 mmol/L (135-145) L 06/04/17 06:00 Potassium 4.0 mmol/L (3.5-5.0) 06/04/17 06:00 Chloride 96 mmol/L (101-111) L 06/04/17 06:00 Carbon Dioxide 27 mmol/L (21-32) 06/04/17 06:00 Anion Gap 8.0 (6-13) 06/04/17 06:00 BUN 17 mg/dL (6-20) 06/04/17 06:00 Creatinine 0.8 mg/dL (0.4-1.0) 06/04/17 06:00 Estimated GFR (MDRD) 68 (>89) L 06/04/17 06:00 Glucose 111 mg/dL (70-100) H 06/04/17 06:00 Lactic Acid 1.5 mmol/L (0.5-2.2) 06/03/17 11:30 Calcium 9.4 mg/dL (8.5-10.3) 06/04/17 06:00 Phosphorus 2.0 mg/dL (2.5-4.6) L 06/02/17 15:19 Magnesium 1.7 mg/dL (1.7-2.8) 06/04/17 06:00 Iron 9 ug/dL (28-170) L 06/02/17 15:19 TIBC 297 ug/dL (250-450) 06/02/17 15:19 % Saturation 3 % (20-50) L 06/02/17 15:19 Transferrin 212 mg/dL (192-382) 06/02/17 15:19 Ferritin 164.5 ng/mL (11.0-306.8) 06/02/17 15:19 Total Bilirubin 1.3 mg/dL (0.2-1.0) H 06/04/17 06:00 AST 18 IU/L (10-42) 06/04/17 06:00 ALT 18 IU/L (10-60) 06/04/17 06:00 Alkaline Phosphatase 59 IU/L (42-121) 06/04/17 06:00 Lactate Dehydrogenase 177 IU/L (91-225) 06/02/17 15:19 Troponin I < 0.04 ng/mL (<0.49) 06/02/17 15:19 Total Protein 6.0 g/dL (6.7-8.2) L 06/04/17 06:00 Albumin 2.8 g/dL (3.2-5.5) L 06/04/17 06:00 Globulin 3.2 g/dL (2.1-4.2) 06/04/17 06:00 Albumin/Globulin Ratio 0.9 (1.0-2.2) L 06/04/17 06:00 Amylase 32 U/L (28-100) 06/02/17 15: Lipase 19 U/L (22-51) L 06/02/17 15:19 Vitamin B12 567 pg/mL (180-914) 06/02/17 15:19 TSH 1.53 uIU/mL (0.34-5.60) 06/02/17 15:19 Urine Color YELLOW 06/02/17 15:35 Urine Clarity CLOUDY (CLEAR) 06/02/17 15:35 Urine pH 6.0 PH (5.0-7.5) 06/02/17 15:35 Ur Specific [place] 1.020 (1.002-1.030) 06/02/17 15:35 Urine Protein 100 mg/dL (NEGATIVE) H 06/02/17 15:35 Urine Glucose (UA) NEGATIVE mg/dL (NEGATIVE) 06/02/17 15:35 Urine Ketones NEGATIVE mg/dL (NEGATIVE) 06/02/17 15:35 Urine Occult Blood MODERATE (NEGATIVE) H 06/02/17 15:35 Urine Nitrite NEGATIVE (NEGATIVE) 06/02/17 15:35 Urine Bilirubin NEGATIVE (NEGATIVE) 06/02/17 15:35 Urine Urobilinogen 0.2 (NORMAL) E.U./dL (NORMAL) 06/02/17 15:35 Ur Leukocyte Esterase NEGATIVE (NEGATIVE) 06/02/17 15:35 Urine RBC 6-10 /HPF (0-5) H 06/02/17 15:35 Urine WBC 6-10 /HPF (0-5) H 06/02/17 15:35 Ur Squamous Epith Cells NONE SEEN (<= Few) 06/02/17 15:35 Urine Bacteria Many /HPF (None Seen) H 06/02/17 15:35 Ur Microscopic Review INDICATED 06/02/17 15:35 Urine Culture Comments INDICATED 06/02/17 15:35 - Procedures Procedures: Procedures COLONOSCOPY (02/03/15) EXCISION OF RIGHT AXILLARY LYMPHATIC, OPEN APPROACH, DIAGN (04/04/16) INSERTION OF INFUSION DEV INTO SUP VENA CAVA, PERC APPROACH (05/02/16) INSERTION OF VAD INTO CHEST SUBCU/FASCIA, PERC APPROACH (05/02/16) REPLACE L HIP JT W METAL ON POLY, UNCEMENT, OPEN (09/14/16) RESECTION OF RIGHT BREAST, OPEN APPROACH (04/04/16) TRANSFUSE NONAUT FROZEN PLASMA IN PERIPH VEIN, PERC (09/14/16)
[2017-06-04] MEDS ORDERED: PIPERACILLIN/TAZOBACTAM 4.5 GM in SODIUM CHLORIDE 0.9% MINIBAG 100 ML IV SCH (12:00)
[2017-06-04] MEDS: traZODone 50 MG TABLET PO PRN (21:30)
[2017-06-04] MEDS: FAMOTIDINE 20 MG TABLET PO SCH (21:30)
[2017-06-05] MEDS: ACETAMINOPHEN 325 MG TABLET PO PRN ×2 (00:07→05:14)
[2017-06-05] MEDS: BENZONATATE 100 MG CAPSULE PO PRN (00:08)
[2017-06-05] MEDS: SODIUM CHLORIDE 0.9% 1,000 ML IV SCH ×4 (02:48→22:58)
[2017-06-05] MEDS: SODIUM CHLORIDE FLUSH 0.9% 10 ML SYRINGE IVP SCH ×3 (05:17→22:34)
[2017-06-05] MEDS: BENZOCAINE/MENTHOL LOZENGE MM PRN (06:44)
[2017-06-05] MEDS: LEVOTHYROXINE 125 MCG TABLET PO SCH (06:44)
[2017-06-05 06:52] LABS: BASOPHILS % (AUTO) 0.1 %; EOSINOPHILS % (AUTO) 0.6 %; HCT - HEMATOCRIT 32.5 % (37.0-47.0); HGB - HEMOGLOBIN 10.6 g/dL (12.0-16.0); LYMPHOCYTES # (AUTO) 0.5 10^3/uL (1.5-3.5); LYMPHOCYTES % (AUTO) 7.2 %; MEAN CORPUSCULAR HEMOGLOBIN 34.1 pg (27.0-31.0); MEAN CORPUSCULAR HGB CONC 32.5 g/dL (32.0-36.0); MEAN CORPUSCULAR VOLUME 104.9 fL (81.0-99.0); MEAN PLATELET VOLUME 9.8 fL (7.9-10.8); MONOCYTES # (AUTO) 1.4 10^3/uL (0.0-1.0); MONOCYTES % (AUTO) 21.8 %; NEUTROPHILS # (AUTO) 4.6 10^3/uL (1.5-6.6); NEUTROPHILS % (AUTO) 70.3 %; NUCLEATED RED BLOOD CELLS AUTO 0.3 /100WBC; RED CELL DISTRIBUTION WIDTH 16.8 % (12.0-15.0); UNCORRECTED WHITE BLOOD COUNT 6.6 x10^3/uL; WHITE BLOOD COUNT 6.6 x10^3/uL (4.8-10.8)
[2017-06-05 07:05] LABS: ALBUMIN/GLOBULIN RATIO 0.8 (1.0-2.2); BILIRUBIN,TOTAL 0.8 mg/dL (0.2-1.0); CALCIUM 8.8 mg/dL (8.5-10.3); CREATININE 0.7 mg/dL (0.4-1.0); POTASSIUM 3.5 mmol/L (3.5-5.0); TOTAL PROTEIN 5.7 g/dL (6.7-8.2)
--- NOTE | 2017-06-05 09:43 | CONSULTATION NOTE ---
DATE OF CONSULTATION: 06/03/2017 00:00:00 REQUESTING PROVIDER: Norma Sofia. REASON FOR REFERRAL: Abdominal pain. HISTORY OF PRESENT ILLNESS: This patient is an 87-year-old female who presents with 1 day history of fever, cough, and chills, along with sweats. She came to the emergency room and a CTA was done which did not reveal any significant abnormality as the source of her problems. She was also having abdomin al pain and therefore surgery consult was obtained. ALLERGIES: 1. ASPIRIN. 2. SULFADIAZINE. 3. OXYCODONE. MEDICAL PROBLEMS: 1. Atrial fibrillation. 2. History of breast cancer with chronic anemia. 3. Hypertension. 4. Hypothyroidism. 5. Osteoporosis. 6. Compression of L2. 7. Hemorrhoids. 8. Depression. 9. Migraines. PAST SURGICAL HISTORY: Left total hip, femur surgery. Humeral fracture, distal radius fracture. Hyste rectomy, mastectomy, rhinoplasty. MEDICATIONS: 1. Diltiazem. 2. Ambien. 3. Metoprolol. 4. Levothyroxine. 5. Lasix. 6. Pepcid. 7. Digoxin. FAMILY HISTORY: The patient is a , lives alone. HABITS: The patient socially drinks alcohol. Denies any smoking or drug use. REVIEW OF SYSTEMS: A complete review of systems was obtained. Pertinent positives are: CONSTITUTIONAL: Sweats and chills. GASTROINTESTINAL: Abdominal pain. PSYCHOLOGICAL: Depression. A 12-point review of systems was obtained with the pertinent positives discussed and all others being negative. VITAL SIGNS: Temperature is 38, pulse 124, blood pressure is 143/87. GENERAL: The patient is sitting up in bed, does not appear to be in any significant distress at the c urrent time. EYES: Not icteric. NECK: No lymphadenopathy. HEART: Tachycardic, irregular. LUNGS: Clear. BACK: Nontender. ABDOMEN: Mildly distended. At first she was tender in the lower abdominal region when I had first exa mined her, and now more in the upper. She states that it also goes down her leg. EXTREMITIES: No edema or cyanosis. NEURO: The patient appears to be neurologically intact without any deficits. PSYCHOLOGICAL: The patient is coherent, cooperative, appears to answer questions fully. DIAGNOSTIC DATA: Sodium was 135, potassium 4.4, liver function tests are normal limits except for charity irubin of 1.1. She had an abdominal ultrasound of the right upper quadrant which revealed mobile ston es in the gallbladder without any gallbladder wall thickening. White blood cell count of 15, hemoglob in 10.3. ASSESSMENT: 1. Abdominal pain along with fever and elevated white count of unknown etiology. I have recommended p atient undergo a CT scan of the abdomen and pelvis to further evaluate it. She states that she has blanca d a colonoscopy in the last [address] Sadler which was reported to be normal. She has been having n ormal bowel movements without any diarrhea, constipation, or seeing blood in her stool. She has never had a bowel obstruction nor diverticulitis. 2. Atrial fibrillation with rapid rate with heart rate above 100 on telemetry. 3. History of breast cancer with nodules seen on CT scan of unknown significance. PLAN: 1. Continue NPO. 2. Check CT scan of the abdomen and pelvis with oral, but no IV contrast. JOB #: [id number] EXT JOB #:[id number]
[2017-06-05] MEDS: CHOLECALCIFEROL 5,000 UNIT CAPSULE PO SCH ×2 (10:05→20:15)
[2017-06-05] MEDS: diltiaZEM CD 180 MG CAPSULE PO SCH (10:06)
[2017-06-05] MEDS: DIGOXIN 125 MCG TABLET PO SCH (10:06)
[2017-06-05] MEDS: METOPROLOL SUCCINATE 50 MG TABLET PO SCH (10:06)
[2017-06-05] MEDS: POLYETHYLENE GLYCOL 3350 17 GM PACKET PO SCH (10:07)
[2017-06-05] MEDS: NEUTRA-PHOS 250 MG TABLET PO SCH ×3 (10:07→16:00)
[2017-06-05] MEDS: LOPERAMIDE 2 MG CAPSULE PO PRN (11:10)
--- NOTE | 2017-06-05 15:07 | PROVIDER PROGRESS NOTE ---
Subjective - Subjective Pt reports feeling: Improved Subjective: pt report she feel better. No urination symptoms, no fever/chill. Objective - Vital Signs/Intake & Output Vital Signs: Vital Signs x48h Temp Pulse Resp BP Pulse Ox 06/05/17 12:39 36.7 C 92 16 100/62 99 06/05/17 10:00 36.4 C L 82 18 122/73 96 Intake & Output: Intake & Output 06/02/17 06/03/17 06/04/17 06/05/17 23:59 23:59 23:59 23:59 Intake Total 526 5050 6397 5709 Balance 526 5232 0960 3636 - Objective General Appearance: positive: No acute distress, Alert Eyes Bilateral: positive: Normal inspection, PERRL ENT: positive: ENT inspection nml, Pharynx nml, No signs of dehydration Neck: positive: Nml inspection, Thyroid nml, Trachea midline Respiratory: positive: Chest non-tender, No respiratory distress, Breath sounds nml Cardiovascular: positive: Regular rate & rhythm, No murmur, No gallop Peripheral Pulses: 2+ Radial (R), 2+ Radial (L), 2+ Dorsalis pedis (R), 2+ Dorsalis pedis (L) Abdomen: positive: Non-tender, Nml bowel sounds, No distention Back: positive: Nml inspection Skin: positive: Color nml, Warm Extremities: positive: Non-tender, Full ROM, Nml appearance Neurologic/Psychiatric: positive: Oriented x3, CN's nml (2-12), Motor nml, Sensation nml, Mood/affect nml - Lab Results Fish Bones: 06/05/17 06:36 06/05/17 06:36 Other Labs: Lab Results x24hrs 06/05/17 06/05/17 Range/Units 06:36 06:36 WBC 6.6 (4.8-10.8) x10^3/uL RBC 3.10 L (4.20-5.40) 10^6/uL Hgb 10.6 L (12.0-16.0) g/dL Hct 32.5 L (37.0-47.0) % MCV 104.9 H (81.0-99.0) fL MCH 34.1 H (27.0-31.0) pg MCHC 32.5 (32.0-36.0) g/dL RDW 16.8 H (12.0-15.0) % Plt Count 71 L (130-450) 10^3/uL MPV 9.8 (7.9-10.8) fL Neut # 4.6 (1.5-6.6) 10^3/uL Lymph # 0.5 L (1.5-3.5) 10^3/uL [place] # 1.4 H (0.0-1.0) 10^3/uL Eos # 0.0 (0.0-0.7) 10^3/uL Baso # 0.0 (0.0-0.1) 10^3/uL Absolute Nucleated RBC 0.02 x10^3/uL Nucleated RBCs 0.3 /100WBC Sodium 133 L (135-145) mmol/L Potassium 3.5 (3.5-5.0) mmol/L Chloride 101 (101-111) mmol/L Carbon Dioxide 26 (21-32) mmol/L Anion Gap 6.0 (6-13) BUN 11 (6-20) mg/dL Creatinine 0.7 (0.4-1.0) mg/dL Estimated GFR (MDRD) 80 L (>89) Glucose 165 H (70-100) mg/dL Calcium 8.8 (8.5-10.3) mg/dL Total Bilirubin 0.8 (0.2-1.0) mg/dL AST 27 (10-42) IU/L ALT 22 (10-60) IU/L Alkaline Phosphatase 74 (42-121) IU/L Total Protein 5.7 L (6.7-8.2) g/dL Albumin 2.5 L (3.2-5.5) g/dL Globulin 3.2 (2.1-4.2) g/dL Albumin/Globulin Ratio 0.8 L (1.0-2.2) Assessment/Plan - Problem List (1) Urinary tract infection Impression: pt is on levoquin now, order UA for cleaning check mag, and dig, imodin for PRN diarrhea, since nurse report pt had some loose and diarrhea at morning, will closely monitor Qualifiers: Urinary tract infection type: acute cystitis Hematuria presence: without hematuria Qualified Code(s): N30.00 - Acute cystitis without hematuria
[2017-06-05 16:28] LABS: BILIRUBIN,URINE NEGATIVE (NEGATIVE); PH,URINE 6.5 PH (5.0-7.5)
[2017-06-05] MEDS: traZODone 50 MG TABLET PO PRN (19:16)
[2017-06-05] MEDS: FAMOTIDINE 20 MG TABLET PO SCH (20:15)
[2017-06-06] MEDS: ACETAMINOPHEN 325 MG TABLET PO PRN (00:16)
[2017-06-06] MEDS: LEVOTHYROXINE 125 MCG TABLET PO SCH (05:57)
[2017-06-06] MEDS: SODIUM CHLORIDE FLUSH 0.9% 10 ML SYRINGE IVP SCH ×2 (05:57→12:44)
[2017-06-06] MEDS: SODIUM CHLORIDE 0.9% 1,000 ML IV SCH (06:38)
[2017-06-06 06:45] LABS: BASOPHILS % (AUTO) 0.6 %; EOSINOPHILS # (AUTO) 0.1 10^3/uL (0.0-0.7); EOSINOPHILS % (AUTO) 1.9 %; HCT - HEMATOCRIT 29.5 % (37.0-47.0); HGB - HEMOGLOBIN 9.6 g/dL (12.0-16.0); LYMPHOCYTES # (AUTO) 0.5 10^3/uL (1.5-3.5); LYMPHOCYTES % (AUTO) 11.7 %; MEAN CORPUSCULAR HEMOGLOBIN 34.2 pg (27.0-31.0); MEAN CORPUSCULAR HGB CONC 32.5 g/dL (32.0-36.0); MEAN CORPUSCULAR VOLUME 105.2 fL (81.0-99.0); MEAN PLATELET VOLUME 10.1 fL (7.9-10.8); MONOCYTES % (AUTO) 20.5 %; NEUTROPHILS # (AUTO) 3.1 10^3/uL (1.5-6.6); NEUTROPHILS % (AUTO) 65.3 %; NUCLEATED RED BLOOD CELLS AUTO 0.4 /100WBC; RED BLOOD COUNT 2.81 10^6/uL (4.20-5.40); RED CELL DISTRIBUTION WIDTH 16.4 % (12.0-15.0); UNCORRECTED WHITE BLOOD COUNT 4.7 x10^3/uL; WHITE BLOOD COUNT 4.7 x10^3/uL (4.8-10.8)
[2017-06-06 06:59] LABS: ALBUMIN/GLOBULIN RATIO 0.8 (1.0-2.2); BILIRUBIN,TOTAL 0.5 mg/dL (0.2-1.0); CALCIUM 8.7 mg/dL (8.5-10.3); CREATININE 0.6 mg/dL (0.4-1.0); MAGNESIUM 1.7 mg/dL (1.7-2.8); POTASSIUM 3.5 mmol/L (3.5-5.0); TOTAL PROTEIN 5.4 g/dL (6.7-8.2)
[2017-06-06] MEDS: NEUTRA-PHOS 250 MG TABLET PO SCH ×2 (08:32→12:44)
[2017-06-06] MEDS: DIGOXIN 125 MCG TABLET PO SCH (08:32)
[2017-06-06] MEDS: CHOLECALCIFEROL 5,000 UNIT CAPSULE PO SCH (08:33)
[2017-06-06] MEDS: METOPROLOL SUCCINATE 50 MG TABLET PO SCH (08:33)
[2017-06-06] MEDS: diltiaZEM CD 180 MG CAPSULE PO SCH (08:33)
[2017-06-06] MEDS: LOPERAMIDE 2 MG CAPSULE PO PRN ×2 (08:34→12:44)
[2017-06-06] MEDS: POLYETHYLENE GLYCOL 3350 17 GM PACKET PO SCH (08:34)
[2017-06-06] MEDS ORDERED: ZINC OXIDE 20% OINT 28.35 GM TUBE TOP ONE (08:43)
--- NOTE | 2017-06-06 10:53 | Discharge Plan ---
Discharge Plan Disposition: 01 Home, Self Care Condition: Stable Prescriptions: Levofloxacin 500 mg PO DAILY #7 tablet Diet: Cardiac Activity Restrictions: Activity as Tolerated Shower Restrictions: No Driving Restrictions: No Weight Bearing: Full Weight Additional Instructions or Follow Up instructions: may follow up PCP in one week Follow-Up Care: [facility] - Cardiac No Smoking: If you smoke, Please STOP! Call for help. Follow-up with: Roman Correia MD [Primary Care Provider] -
[2017-06-06 12:07] VITALS: BP 137/82
--- NOTE | 2017-06-11 19:37 | DISCHARGE SUMMARY ---
DATE OF ADMISSION: 06/02/2017 DATE OF DISCHARGE: 06/06/2017 CHIEF COMPLAINT: Cough, fever, low abdominal pain and feel weakness, not well, and also have urinary symptoms including incontinence. DISCHARGE DIAGNOSES: 1. Urinary tract infection resolved. 2. Fever resolved. 3. Low abdominal pain resolved. 4. Chronic atrial fibrillation. 5. Iron deficiency anemia. MEDICATIONS AT DISCHARGE: Resume home medications: 1. Digoxin 125 mcg p.o. daily. 2. Levothyroxine 125 mcg p.o. daily. 3. Lasix 40 mg p.o. daily. 4. Pepcid 40 mg p.o. q. p.m. 5. Vitamin D3 5000 units p.o. daily. 6. Zolpidem 10 mg p.o. daily. 7. Vitamin B 1 capsule daily. 8. Trazodone 50 to 100 p.o. bedtime p.r.n. 9. Metoprolol 75 p.o. daily. 10. Warren 1 to 2 tablets p.o. q. 4 hours p.r.n. for pain. 11. Cardizem 180 mg p.o. daily. 12. Levaquin 500 mg p.o. daily. HOSPITAL COURSE: The patient admitted June 02, 2017. Patient with medical history of infiltrative car cinoma of the breast, depression, arthritis, fibromyalgia, chronic back pain, atrial fibrillation, hy pertension, hyperlipidemia. Chief complaint with 3 days of cough, fever, low abdominal pain, vomiting , nausea, feel weakness, and also with chills, sweating, and urinary symptoms including incontinence, so many complaints. Patient treated beginning with Zosyn, then after sensitive test for the urinalys is there was sensitivity to the Levaquin, we changed to IV Levaquin and patient got urinalysis on May was negative. Patient was on room air 95% O2 saturation, pulse rate 17, and blood pressure 137/82. Heart rate 78, t emperature 96.6. LABORATORY TESTS: CMP: Sodium 136, potassium 3.5, BUN 8, creatinine 0.6, GFR 95. Lactic acid 1.5, mag nesium 1.7. AST, ALT, alkaline phosphatase and total bilirubin in normal range. CBC: WBC 4.7, hemoglo bin 9.6. Platelets 86. MCV 105.2, hematocrit 29.5. IMAGING STUDIES: Chest x-ray done June 02, 2017, no acute infiltration. described a right nodule __ . Decreased mild bilaterally interstitial . CT image will be recommended. Chest CTA no evidence of PE, substantial improvement of the previous __ bilaterally multifocal pulmonary consolidation or pulmonary nodule with mild persiste nce, resolved previous pleural effusion. Mediastinal lymphadenopathy demonstrated area of both mild p leural and mild . Stable cardiac enlargement. abdominal fluid. of lumbar vertebral body without fracture change. Ultrasound of abdomen without evidence of cholecystitis. (11:52) specific imaging could be media sales representative of the urinary tract infection and right nicki lonephritis, , small amount of fluid . Chest left pleural effusi on. INTERVENTIONS: We treated with antibiotics Zosyn beginning and then we switched to Levaquin according to the sensitivity studies. FOLLOWUP: Patient advised followup with PCP in 1 week. Activity as tolerated, cardiac diet. TIME SPENT ON DISCHARGE: Over 50 minutes. JOB #: [id number] EXT JOB #:[id number]
== END 2017-06-06 14:10 | disposition home or self-care (01) | DRG 690 ==
LOC: EDUNIT# → ED 14:52 → MS 16:52
PROVIDERS: ADMIT Nurse Practitioner; ATTEND Nurse Practitioner Gerontology
DX: I48.91 Unspecified atrial fibrillation (principal); J18.1 Lobar pneumonia, unspecified organism; N30.00 Acute cystitis without hematuria; I10 Essential (primary) hypertension; N10 Acute pyelonephritis; R78.81 Bacteremia; Z86.73 Personal history of transient ischemic attack (TIA), and cerebral infarction without residual deficits; E87.1 Hypo-osmolality and hyponatremia; Z79.01 Long term (current) use of anticoagulants; M80.08XA Age-related osteoporosis with current pathological fracture, vertebra(e), initial encounter for fracture; I48.2 Chronic atrial fibrillation; D50.9 Iron deficiency anemia, unspecified; B96.20 Unspecified Escherichia coli [E. coli] as the cause of diseases classified elsewhere; Z16.11 Resistance to penicillins; K80.20 Calculus of gallbladder without cholecystitis without obstruction; R19.7 Diarrhea, unspecified; G89.29 Other chronic pain; M79.7 Fibromyalgia; I11.9 Hypertensive heart disease without heart failure; F32.9 Major depressive disorder, single episode, unspecified; E78.5 Hyperlipidemia, unspecified; E03.9 Hypothyroidism, unspecified; K21.9 Gastro-esophageal reflux disease without esophagitis; Z96.642 Presence of left artificial hip joint; Z85.3 Personal history of malignant neoplasm of breast; Z90.10 Acquired absence of unspecified breast and nipple; Z90.710 Acquired absence of both cervix and uterus; Z87.01 Personal history of pneumonia (recurrent); Z91.81 History of falling
CPT/HCPCS: 36415; 71020; 71275; 74176; 76700; 80053; 80162; 81001; 81003; 82150; 82607; 82728; 83540; 83605; 83615; 83690; 83735; 84100; 84443; 84466; 84484; 85025; 85044; 85610; 87040; 87077; 87086; 93005; 96374; 96375; 99284; 99285

== ENCOUNTER 2017-07-26 13:21 | Outpatient (CLI) | payer MEDICARE, BC | END 2017-07-26 13:22 | disposition critical access hospital (66) | LOC: EMS 13:21 | PROVIDERS: ATTEND Surgery | DX: R06.02 Shortness of breath (principal) | CPT/HCPCS: A0425; A0427 ==

== ENCOUNTER 2017-07-26 13:47 | Emergency (ER) | payer MEDICARE, BC ==
[2017-07-26] MEDS ORDERED: ATROPINE 0.4 MG/ML VIAL IVP ONE (13:50)
[2017-07-26] MEDS ORDERED: EPINEPHrine 1 MG/ML AMP IVP STA (13:50)
[2017-07-26] MEDS ORDERED: SODIUM BICARBONATE ABBOJECT 50 MEQ/50 ML SYRINGE IVP STA (13:50)
[2017-07-26] MEDS ORDERED: EPINEPHrine 1 MG/ML VIAL IVP STA (13:59)
[2017-07-26 14:10] LABS: BASOPHILS % (AUTO) 0.3 %; EOSINOPHILS # (AUTO) 0.1 10^3/uL (0.0-0.7); EOSINOPHILS % (AUTO) 1.6 %; HCT - HEMATOCRIT 33.3 % (37.0-47.0); HGB - HEMOGLOBIN 10.9 g/dL (12.0-16.0); LYMPHOCYTES # (AUTO) 0.7 10^3/uL (1.5-3.5); LYMPHOCYTES % (AUTO) 14.3 %; MEAN CORPUSCULAR HEMOGLOBIN 34.6 pg (27.0-31.0); MEAN CORPUSCULAR HGB CONC 32.8 g/dL (32.0-36.0); MEAN CORPUSCULAR VOLUME 105.6 fL (81.0-99.0); MEAN PLATELET VOLUME 9.6 fL (7.9-10.8); MONOCYTES # (AUTO) 1.1 10^3/uL (0.0-1.0); MONOCYTES % (AUTO) 22.7 %; NEUTROPHILS # (AUTO) 2.9 10^3/uL (1.5-6.6); NEUTROPHILS % (AUTO) 61.1 %; RED BLOOD COUNT 3.15 10^6/uL (4.20-5.40); UNCORRECTED WHITE BLOOD COUNT 4.8 x10^3/uL; WHITE BLOOD COUNT 4.8 x10^3/uL (4.8-10.8)
[2017-07-26 14:17] LABS: INR 1.2 (0.8-1.2)
[2017-07-26 14:24] LABS: ALBUMIN/GLOBULIN RATIO 1.2 (1.0-2.2); CALCIUM 10.1 mg/dL (8.5-10.3); CREATININE 0.8 mg/dL (0.4-1.0); POTASSIUM 4.3 mmol/L (3.5-5.0); TOTAL PROTEIN 7.4 g/dL (6.7-8.2)
--- NOTE | 2017-07-26 14:52 | XRAY Report ---
EXAM: CHEST RADIOGRAPHY EXAM DATE: 07/26/2017 02:21 PM. CLINICAL HISTORY: Chest pain. COMPARISON: 06/02/2017. TECHNIQUE: 1 view. FINDINGS: Lungs/Pleura: Lung volumes are within normal limits. There is perihilar reticular opacity. There are small bilateral pleural effusions. There is no evidence of pneumothorax. Mediastinum: There is mild cardiomegaly. Other: Left Port-A-Cath is stable in position. IMPRESSION: 1. There is mild cardiomegaly. 2. There is increased perihilar reticular opacity. There are small bilateral pleural effusions. Findi ngs are suspicious for likely edema secondary to heart failure. 3. There is no evidence of pneumothorax. [facility] Referring Provider Line: [phone] SITE ID: [id number]
[2017-07-26] MEDS ORDERED: ASPIRIN CHEW 81 MG TABLET PO STA (14:59)
[2017-07-26] MEDS ORDERED: FUROSEMIDE 20 MG/2 ML VIAL IVP STA (14:59)
--- NOTE | 2017-07-26 15:02 | ED Physician Documentation ---
PD HPI ABD PAIN - Stated complaint Stated Complaint: AFIB, CHEST TIGHTNESS - Chief complaint Chief Complaint: Cardiac - Additional information Additional information: Patient is a 87-year-old female with a history of congestive heart failure and atrial fibrillation. She is here with a complaint of worsening exertional dyspnea over the past several days. She has had it more lasts for a couple months but has been worse over the last several days. She has been off of her Lasix for 2 days. She takes a baby aspirin on occasion but is not on any formal anticoagulation for atrial fibrillation. She is has had a mild TIA in the past which suggests that she should be on some type of anticoagulation not just aspirin. She also has a history of atrial fibrillation which is chronic in nature she is on a beta-kerry chronically. She presents with a complaint of exertional dyspnea worse over the last several days. She has tightness in the chest only when she lays down. There is no exertional tightness. She also has a history of hypothyroidism. Review of systems: For pertinent positive and negatives in the review of systems please see the history of present illness, otherwise all other systems have been reviewed and are negative. Dragon disclaimer: Parts of this medical record were created using voice recognition technology. Because of the inherent limitations of this system, occasional same sounding word substitutions do occur and persist despite proofreading. Please read the document for context. 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: Breast cancer : Incontinence, Frequency HEENT: Chronic sinusitis Psych: Depression Musculoskeletal: Osteoarthritis, Fibromyalgia, Chronic back pain Derm: Rosacea - Past Surgical History Past Surgical History: Yes General: Colonoscopy, EGD Ortho: Hip replacement, Knee replacement, Other /BOTTOM BRUSHER: Hysterectomy, Mastectomy HEENT: Cataracts, Rhinoplasty - Present Medications Home Medications: Ambulatory Orders Medication Instructions Recorded Confirmed Furosemide 40 mg PO DAILY 07/10/14 07/26/17 Levothyroxine Sodium [Levoxyl] 125 mcg PO DAILY 07/10/14 07/26/17 Metoprolol Succinate [Toprol Xl] 75 mg PO DAILY 07/10/14 07/26/17 Cholecalciferol (Vitamin D3) 5,000 unit PO DAILY 02/03/15 07/26/17 [Vitamin D3] Vitamin B Complex 1 cap PO DAILY 02/03/15 07/26/17 diltiaZEM CD [Cardizem Cd] 180 mg PO DAILY #30 capsule 04/19/17 07/26/17 traZODone [Desyrel] 50 - 100 mg PO HS PRN 06/03/17 07/26/17 Zolpidem Tartrate [Ambien] 10 mg PO QPM PRN 07/03/17 07/26/17 Furosemide [Lasix] 40 mg PO DAILY #30 tablet 07/26/17 Nitrofurantoin [Macrobid] 100 mg PO DAILY #14 capsule 07/26/17 Omeprazole [Omeprazole] 20 mg PO DAILY 07/26/17 07/26/17 - Allergies Allergies/Adverse Reactions: Allergies Allergy/AdvReac Type Severity Reaction Status Date / Time aspirin Allergy Unknown Verified 11/22/16 09:32 sulfadiazine [Sulfadiazine] Allergy Hives Verified 11/22/16 09:32 oxycodone HCl * AdvReac Mild Nausea Verified 11/22/16 09:32 [From Percocet] - Social History Does the pt smoke?: No Smoking Status: Never smoker Does the pt drink ETOH?: Yes Does the pt have substance abuse?: No - Immunizations Immunizations are current?: Yes - POLST Patient has POLST: No PD ED PE NORMAL - Vitals Vital signs reviewed: Yes - General General: Alert and oriented X 3, No acute distress, Well developed/nourished - HEENT HEENT: Atraumatic, PERRL - Neck Neck: Supple, no meningeal sign, No bony TTP - Cardiac Cardiac: No murmur, No gallop, No rub, Other (Irregularly irregular heartbeat) - Respiratory Respiratory: Other (Mild rales bilaterally) - Abdomen Abdomen: Normal bowel sounds, Non tender, Non distended - Back Back: No CVA TTP, No spinal TTP - Derm Derm: Normal color, No rash - Extremities Extremities: Other (Mild pedal edema bilateral lower extremities) - Neuro Neuro: Alert and oriented X 3, No motor deficit, No sensory deficit Results - Vitals Vitals: Vital Signs - 24 hr 0907/26/17 07/26/17 13:56 17:12 17:49 Temperature 36.9 C Heart Rate 111 H 105 H 106 H Respiratory 28 H 22 27 H Rate Blood Pressure 147/82 H 136/85 H 136/85 H O2 Saturation 96 99 99 Oxygen O2 Source Room air - Labs Labs: Laboratory Tests 07/26/17 07/26/17 07/26/17 14:00 14:00 14:00 WBC 4.8 RBC 3.15 L Hgb 10.9 L Hct 33.3 L MCV 105.6 H MCH 34.6 H MCHC 32.8 RDW 17.0 H Plt Count 88 L MPV 9.6 Neut # 2.9 Lymph # 0.7 L [place] # 1.1 H Eos # 0.1 Baso # 0.0 Absolute Nucleated RBC 0.05 Nucleated RBCs 1.0 PT 14.0 H INR 1.2 Sodium 134 L Potassium 4.3 Chloride 98 L Carbon Dioxide 28 Anion Gap 8.0 BUN 18 Creatinine 0.8 Estimated GFR (MDRD) 68 L Glucose 115 H Calcium 10.1 Total Bilirubin 1.0 AST 24 ALT 16 Alkaline Phosphatase 75 Troponin I B-Natriuretic Peptide Total Protein 7.4 Albumin 4.1 Globulin 3.3 Albumin/Globulin Ratio 1.2 Lipase 16 L Urine Color Urine Clarity Urine pH Ur Specific [place] Urine Protein Urine Glucose (UA) Urine Ketones Urine Occult Blood Urine Nitrite Urine Bilirubin Urine Urobilinogen Ur Leukocyte Esterase Urine RBC Urine WBC Ur Squamous Epith Cells Urine Bacteria Ur Microscopic Review Urine Culture Comments 07/26/17 07/26/17 07/26/17 14:00 14:00 14:00 WBC RBC Hgb Hct MCV MCH MCHC RDW Plt Count MPV Neut # Lymph # [place] # Eos # Baso # Absolute Nucleated RBC Nucleated RBCs PT INR Sodium Potassium Chloride Carbon Dioxide Anion Gap BUN Creatinine Estimated GFR (MDRD) Glucose Calcium Total Bilirubin AST ALT Alkaline Phosphatase Troponin I < 0.04 B-Natriuretic Peptide 438 H Total Protein Albumin Globulin Albumin/Globulin Ratio Lipase Urine Color YELLOW Urine Clarity CLOUDY Urine pH 6.0 Ur Specific [place] 1.020 Urine Protein NEGATIVE Urine Glucose (UA) NEGATIVE Urine Ketones NEGATIVE Urine Occult Blood TRACE-INTA Urine Nitrite POSITIVE H Urine Bilirubin NEGATIVE Urine Urobilinogen 0.2 (NORMAL) Ur Leukocyte Esterase TRACE H Urine RBC 0-5 Urine WBC >25 H Ur Squamous Epith Cells MANY Squamous H Urine Bacteria Many H Ur Microscopic Review INDICATED Urine Culture Comments NOT INDICATED PD MEDICAL DECISION MAKING - ED course ED course: This patient is 87-year-old female with a history of atrial fibrillation and congestive heart failure sent in by her primary care physician for dyspnea. On examination here the patient actually looks pretty good. She does have signs and symptoms of hypervolemia with orthopnea at night and exertional dyspnea. An EKG was done here this EKG demonstrates atrial fibrillation at 98 bpm the QT is prolonged at 300 QRS and QT intervals are normal there is no obvious ST elevation depression or T-wave inversion that would demonstrate or suggest ischemia. Chest x-ray on this patient demonstrates cardiomegaly and pulmonary vascular congestion. Patient's blood pressure pulse and pulse oximetry were all normal. He was given 60 mg of Lasix intravenously and has had good diuresis here in emergency department. History shows that she has been out of her Lasix for the past couple of days and could not get it filled. She also was found to have a urinary tract infection and also had lower urinary tract symptoms so she is given 1 g Rocephin. I did recommend to the patient that she be admitted to hospital for additional diuresis however she refused saying that she has to take care of her dog and her cats. She does agree to watch her symptoms closely and follow up with her PMD in the next few days. She does agree to double up her Lasix over the next couple of days and then resume is normal. Disposition: To home Clinical impression: 1. Acute decompensated congestive heart failure 2. Noncompliance with Lasix 3. Urinary tract infection Departure - Departure Disposition: 01 Home, Self Care Clinical Impression: Urinary tract infection Qualifiers: Urinary tract infection type: acute cystitis Hematuria presence: without hematuria Qualified Code(s): N30.00 - Acute cystitis without hematuria Condition: Good Instructions: ED UTI Cystitis Female, Heart Failure Dc Follow-Up: Roman Correia MD [Primary Care Provider] - Prescriptions: Furosemide [Lasix] 40 mg PO DAILY #30 tablet Nitrofurantoin [Macrobid] 100 mg PO DAILY #14 capsule Comments: Double your Lasix dose for the next 2 days then resume at your normal dose at 40 mg a day
[2017-07-26] MEDS ORDERED: FUROSEMIDE 20 MG/2 ML VIAL IVP ONE (15:15)
[2017-07-26] MEDS ORDERED: ASPIRIN CHEW 81 MG TABLET ONE (15:15)
[2017-07-26] MEDS ORDERED: FUROSEMIDE 40 MG/4 ML VIAL ONE (15:16)
[2017-07-26 15:40] LABS: BILIRUBIN,URINE NEGATIVE (NEGATIVE)
[2017-07-26 15:43] LABS: UA w/ MICROSCOPIC CHARGE YES
[2017-07-26 16:44] LABS: UR CULTURE IF IND NOT INDICATED; WBC,URINE >25 /HPF (0-5)
[2017-07-26] MEDS ORDERED: cefTRIAXone 1 GM in SODIUM CHLORIDE 0.9% MINIBAG 100 ML IV STA (16:53)
[2017-07-26] MEDS ORDERED: cefTRIAXone 1 GM VIAL ONE (17:05)
[2017-07-26 17:13] VITALS: BP 136/85
== END 2017-07-26 18:30 | disposition home or self-care (01) ==
LOC: EDUNIT# → ED 13:47
DX: N30.00 Acute cystitis without hematuria (principal); Z91.128 Patient's intentional underdosing of medication regimen for other reason; T50.1X6A Underdosing of loop [high-ceiling] diuretics, initial encounter; I11.0 Hypertensive heart disease with heart failure; I50.9 Heart failure, unspecified; I48.91 Unspecified atrial fibrillation; R94.31 Abnormal electrocardiogram [ECG] [EKG]; E78.00 Pure hypercholesterolemia, unspecified; Z86.73 Personal history of transient ischemic attack (TIA), and cerebral infarction without residual deficits; E03.9 Hypothyroidism, unspecified; G62.9 Polyneuropathy, unspecified; K21.9 Gastro-esophageal reflux disease without esophagitis; M79.7 Fibromyalgia; M19.90 Unspecified osteoarthritis, unspecified site; Z85.3 Personal history of malignant neoplasm of breast
CPT/HCPCS: 36415; 71010; 80053; 81001; 83690; 83880; 84484; 85025; 85610; 93005; 96374; 96375; 99284; A9270; 81003; 87086

== ENCOUNTER 2017-08-18 15:24 | Outpatient (CLI) | payer MEDICARE, BC | END 2017-08-18 15:25 | disposition critical access hospital (66) | LOC: EMS 15:24 | PROVIDERS: ATTEND Surgery | DX: R04.0 Epistaxis (principal) | CPT/HCPCS: A0425; A0429 ==

== ENCOUNTER 2017-08-18 15:49 | Emergency (ER) | payer MEDICARE, BC ==
[2017-08-18] MEDS ORDERED: OXYMETAZOLINE NASAL SPRAY NAS ONE (15:58)
--- NOTE | 2017-08-18 15:59 | ED Physician Documentation ---
PD HPI HEENT - Stated complaint Stated Complaint: EPISTAXIS - Chief complaint Chief Complaint: Heent - History obtained from History obtained from: Patient - History of Present Illness Timing - onset: Other (Spontaneous epistaxis from the right nares without anticoagulation for the last 5 hours in this 87-year-old woman. 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 HEENT: Chronic sinusitis Psych: Depression Musculoskeletal: Osteoarthritis, Fibromyalgia, Chronic back pain Derm: Rosacea - Past Surgical History Past Surgical History: Yes General: Colonoscopy, EGD Ortho: Hip replacement, Knee replacement, Other /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 ANIMAL FACILITY SUPERVISOR: Hysterectomy, Mastectomy HEENT: Cataracts, Rhinoplasty - Present Medications Home Medications: Ambulatory Orders Medication Instructions Recorded Confirmed Levothyroxine Sodium [Levoxyl] 125 mcg PO DAILY 07/10/14 08/18/17 Metoprolol Succinate [Toprol Xl] 75 mg PO DAILY 07/10/14 08/18/17 Cholecalciferol (Vitamin D3) 5,000 unit PO DAILY 02/03/15 08/18/17 [Vitamin D3] Vitamin B Complex 1 cap PO DAILY 02/03/15 08/18/17 diltiaZEM CD [Cardizem Cd] 180 mg PO DAILY #30 capsule 04/19/17 08/18/17 traZODone [Desyrel] 50 - 100 mg PO HS PRN 06/03/17 08/18/17 Furosemide [Lasix] 40 mg PO DAILY #30 tablet 07/26/17 08/18/17 - Allergies Allergies/Adverse Reactions: Allergies Allergy/AdvReac Type Severity Reaction Status Date / Time sulfadiazine [Sulfadiazine] Allergy Hives Verified 08/18/17 15:57 oxycodone HCl * AdvReac Mild Nausea Verified 08/18/17 15:57 [From Percocet] aspirin AdvReac Nausea Verified 08/18/17 15:57 - Social History Does the pt smoke?: No Smoking Status: Never smoker Does the pt drink ETOH?: Yes Does the pt have substance abuse?: No - Immunizations Immunizations are current?: Yes - POLST Patient has POLST: No PD ED PE NORMAL - Vitals Vital signs reviewed: Yes - General General: Alert and oriented X 3, No acute distress - HEENT HEENT: PERRL, EOMI, Other (Lots of clot in the right nares without active bleeding) - Neck Neck: Supple, no meningeal sign, No bony TTP - Neuro Neuro: Alert and oriented X 3, No motor deficit, No sensory deficit, Normal speech Results - Vitals Vitals: Vital Signs - 24 hr 08/18/17 15:51 Temperature 37.2 C Heart Rate 88 Respiratory 18 Rate Blood Pressure 125/76 O2 Saturation 96 Oxygen O2 Source Room air Procedures - Epistaxis Site: Right, Anterior Preparation: Clots removed, Afrin Treatment: Silver Nitrate Other: Observed - no bleeding PD MEDICAL DECISION MAKING - ED course ED course: After instillation of oxymetazoline and the nose clamp she was let to sit for a few minutes and then the anterior bleeding site was visible and cauterized with silver nitrate without further bleeding. Departure - Departure Disposition: 01 Home, Self Care Clinical Impression: Epistaxis Condition: Good Record reviewed to determine appropriate education?: Yes Instructions: ED Nosebleed Comments: Call your doctor to arrange a follow-up appointment, make the next available appointment. In the interim, return anytime if worse or if new symptoms develop.
[2017-08-18 16:36] VITALS: BP 126/67
== END 2017-08-18 16:37 | disposition home or self-care (01) ==
LOC: EDUNIT# → ED 15:49
DX: R04.0 Epistaxis (principal); I10 Essential (primary) hypertension; E78.00 Pure hypercholesterolemia, unspecified; G62.9 Polyneuropathy, unspecified; Z86.73 Personal history of transient ischemic attack (TIA), and cerebral infarction without residual deficits; Z96.649 Presence of unspecified artificial hip joint; Z96.659 Presence of unspecified artificial knee joint
CPT/HCPCS: 30901; 99282; 99283; A9270

== ENCOUNTER 2017-08-29 13:47 | Emergency (ER) | payer MEDICARE, BC ==
--- NOTE | 2017-08-29 15:01 | ED Physician Documentation ---
History of Present Illness - Stated complaint Stated Complaint: PORT COMPLICATIONS - Chief complaint Chief Complaint: General - History obtained from History obtained from: Patient - History of Present Illness Timing: Other (87-year-old woman with history of breast cancer, not currently on chemotherapy presents because her POWERPort has been discolored for the last 2 days. There is no associated fevers, chills, chest pain, shortness of breath. 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: Breast cancer : Incontinence, Frequency HEENT: Chronic sinusitis Psych: Depression Musculoskeletal: Osteoarthritis, Fibromyalgia, Chronic back pain Derm: Rosacea - Past Surgical History Past Surgical History: Yes General: Colonoscopy, EGD Ortho: Hip replacement, Knee replacement, Other /DOPE FIRER: Hysterectomy, Mastectomy HEENT: Cataracts, Rhinoplasty - Present Medications Home Medications: Ambulatory Orders Medication Instructions Recorded Confirmed Levothyroxine Sodium [Levoxyl] 125 mcg PO DAILY 07/10/14 08/18/17 Metoprolol Succinate [Toprol Xl] 75 mg PO DAILY 07/10/14 08/18/17 Cholecalciferol (Vitamin D3) 5,000 unit PO DAILY 02/03/15 08/18/17 [Vitamin D3] Vitamin B Complex 1 cap PO DAILY 02/03/15 08/18/17 Furosemide [Lasix] 40 mg PO DAILY #30 tablet 07/26/17 08/18/17 Cephalexin [Keflex] 500 mg PO QID #30 capsule 08/29/17 Potassium Chloride 10 meq PO 08/29/17 Zolpidem [Ambien] 5 mg PO HS 08/29/17 08/29/17 - Allergies Allergies/Adverse Reactions: Allergies Allergy/AdvReac Type Severity Reaction Status Date / Time sulfadiazine [Sulfadiazine] Allergy Hives Verified 08/18/17 15:57 oxycodone HCl * AdvReac Mild Nausea Verified 08/18/17 15:57 [From Percocet] aspirin AdvReac Nausea Verified 08/18/17 15:57 - Social History Does the pt smoke?: No Smoking Status: Never smoker Does the pt drink ETOH?: Yes Does the pt have substance abuse?: No - Immunizations Immunizations are current?: Yes - POLST Patient has POLST: No PD ED PE NORMAL - Vitals Vital signs reviewed: Yes - General General: Alert and oriented X 3, No acute distress - Neck Neck: Supple, no meningeal sign, No bony TTP - Cardiac Cardiac: RRR, No murmur - Respiratory Respiratory: No respiratory distress, Clear bilaterally - Derm Derm: Other (PowerPort left anterior chest wall with overlying discoloration but not cellulitic or warm, not tender.) - Neuro Neuro: Alert and oriented X 3, Normal speech - Psych Psych: Normal mood, Normal affect Results - Vitals Vitals: Vital Signs - 24 hr 08/29/17 08/29/17 13:54 14:47 Temperature 36.7 C Heart Rate 111 H 89 Respiratory 16 Rate Blood Pressure 145/94 H O2 Saturation 100 Oxygen O2 Source Room air PD MEDICAL DECISION MAKING - ED course ED course: Spoke with nghia Campbell by phone who recommended no sono, just PO abx and f/u in clinic for eval for port removal. Departure - Departure Disposition: 01 Home, Self Care Clinical Impression: Port-a-cath in place Condition: Good Record reviewed to determine appropriate education?: Yes Follow-Up: Cristopher Blackwell MD [Provider Admit Priv/Credential] - (on Sunday) Prescriptions: Cephalexin [Keflex] 500 mg PO QID #30 capsule Comments: See Dr Blackwell Sunday, return if worse.
[2017-08-29 15:20] LABS: BASOPHILS % (AUTO) 0.5 %; EOSINOPHILS # (AUTO) 0.2 10^3/uL (0.0-0.7); EOSINOPHILS % (AUTO) 2.9 %; HGB - HEMOGLOBIN 11.5 g/dL (12.0-16.0); LYMPHOCYTES % (AUTO) 16.4 %; MEAN CORPUSCULAR HEMOGLOBIN 34.8 pg (27.0-31.0); MEAN CORPUSCULAR VOLUME 108.7 fL (81.0-99.0); MEAN PLATELET VOLUME 10.4 fL (7.9-10.8); NEUTROPHILS # (AUTO) 3.6 10^3/uL (1.5-6.6); NEUTROPHILS % (AUTO) 62.2 %; NUCLEATED RED BLOOD CELLS AUTO 0.2 /100WBC; RED BLOOD COUNT 3.31 10^6/uL (4.20-5.40); RED CELL DISTRIBUTION WIDTH 16.8 % (12.0-15.0); UNCORRECTED WHITE BLOOD COUNT 5.8 x10^3/uL; WHITE BLOOD COUNT 5.8 x10^3/uL (4.8-10.8)
[2017-08-29 15:25] VITALS: BP 128/81
[2017-08-29 15:35] LABS: ALBUMIN/GLOBULIN RATIO 1.3 (1.0-2.2); CREATININE 0.7 mg/dL (0.4-1.0); POTASSIUM 3.8 mmol/L (3.5-5.0); TOTAL PROTEIN 8.2 g/dL (6.7-8.2)
[2017-08-29 15:56] LABS: PLATELET ESTIMATE, MANUAL DECREASED (<130,000) (NORMAL); PLATELET MORPHOLOGY NORMAL APPEARANCE (NORMAL)
[2017-08-29 15:57] LABS: WBC MORPHOLOGY (MULTIPLE) NORMAL APPEARANCE (NORMAL)
== END 2017-08-29 15:37 | disposition home or self-care (01) ==
LOC: ED 13:47
DX: T82.898A Other specified complication of vascular prosthetic devices, implants and grafts, initial encounter (principal); C50.919 Malignant neoplasm of unspecified site of unspecified female breast; I10 Essential (primary) hypertension; I48.91 Unspecified atrial fibrillation; E78.00 Pure hypercholesterolemia, unspecified; E03.9 Hypothyroidism, unspecified; G62.9 Polyneuropathy, unspecified; M79.7 Fibromyalgia; Z86.73 Personal history of transient ischemic attack (TIA), and cerebral infarction without residual deficits
CPT/HCPCS: 36415; 80053; 83690; 85025; 99283

== ENCOUNTER 2017-09-12 12:08 | Outpatient (CLI) | payer MEDICARE, BC ==
--- NOTE | 2017-09-12 18:22 | XRAY Report ---
TWO-VIEW CHEST: 09/12/2017 COMPARISON STUDY: Frontal chest 07/26/2017. INDICATION: Multiple nodules. TECHNIQUE: Two views of the chest. FINDINGS: Normal volumes. No focal pulmonary findings. No pneumothorax or pleural effusion. Stabl e cardiomegaly. Mediastinum otherwise unremarkable. IMPRESSION: DESPITE THE HISTORY, NO PULMONARY NODULES ARE SEEN ON PLAIN FILM. NO ACUTE FINDINGS IN OTHER REGARDS. JOB #: [id number] EXT JOB #:[id number]
== END 2017-09-12 12:09 | disposition home or self-care (01) ==
LOC: DI.S 12:08
PROVIDERS: ATTEND Internal Medicine
DX: R91.8 Other nonspecific abnormal finding of lung field (principal)
CPT/HCPCS: 71020

== ENCOUNTER 2017-10-04 10:37 | Outpatient (CLI) | payer MEDICARE, BC | END 2017-10-04 10:38 | disposition short-term general hospital (02) | LOC: EMS 10:37 | PROVIDERS: ATTEND Surgery | DX: R11.2 Nausea with vomiting, unspecified (principal) | CPT/HCPCS: A0425; A0427 ==

== ENCOUNTER 2017-10-29 10:32 | Outpatient (CLI) | payer MEDICARE, BC | END 2017-10-29 10:33 | disposition critical access hospital (66) | LOC: EMS 10:32 | PROVIDERS: ATTEND Surgery | DX: R05 Cough (principal); R53.1 Weakness; R06.02 Shortness of breath | CPT/HCPCS: A0425; A0429 ==

== ENCOUNTER 2017-10-29 10:53 | Emergency (ER) | payer MEDICARE, BC ==
[2017-10-29 11:27] LABS: BASOPHILS # (AUTO) 0.1 10^3/uL (0.0-0.1); BASOPHILS % (AUTO) 1.3 %; EOSINOPHILS # (AUTO) 0.1 10^3/uL (0.0-0.7); EOSINOPHILS % (AUTO) 3.3 %; HGB - HEMOGLOBIN 11.1 g/dL (12.0-16.0); LYMPHOCYTES # (AUTO) 0.6 10^3/uL (1.5-3.5); LYMPHOCYTES % (AUTO) 14.3 %; MEAN CORPUSCULAR HGB CONC 32.7 g/dL (32.0-36.0); MEAN PLATELET VOLUME 10.7 fL (7.9-10.8); MONOCYTES # (AUTO) 1.3 10^3/uL (0.0-1.0); MONOCYTES % (AUTO) 28.4 %; NEUTROPHILS # (AUTO) 2.4 10^3/uL (1.5-6.6); NEUTROPHILS % (AUTO) 52.7 %; NUCLEATED RED BLOOD CELLS AUTO 0.6 /100WBC; RED BLOOD COUNT 3.18 10^6/uL (4.20-5.40); RED CELL DISTRIBUTION WIDTH 16.2 % (12.0-15.0); UNCORRECTED WHITE BLOOD COUNT 4.5 x10^3/uL; WHITE BLOOD COUNT 4.5 x10^3/uL (4.8-10.8)
[2017-10-29 12:06] LABS: ALBUMIN/GLOBULIN RATIO 1.3 (1.0-2.2); BILIRUBIN,TOTAL 0.9 mg/dL (0.2-1.0); CALCIUM 9.9 mg/dL (8.5-10.3); CREATININE 0.8 mg/dL (0.4-1.0); POTASSIUM 3.8 mmol/L (3.5-5.0)
--- NOTE | 2017-10-29 12:08 | XRAY Preliminary Report ---
Exam: XR CHEST 1 VIEW IMPRESSION: 1. Diffuse interstitial abnormality and bronchial thickening is again seen which can be seen with dif fuse bronchitis/reactive airways disease versus edema. Interstitial pneumonitis is also a considerati on. 2. Cardiomegaly. 3. Interval removal of left-sided portacatheter. [facility] SITE ID: [id number]
--- NOTE | 2017-10-29 12:11 | XRAY Report ---
EXAM: CHEST RADIOGRAPHY EXAM DATE: 10/29/2017 11:22 AM. CLINICAL HISTORY: Chest pain. COMPARISON: 07/26/2017. 06/02/2017. TECHNIQUE: 1 view. FINDINGS: Lungs/Pleura: Diffuse interstitial abnormality is again seen with bronchial thickening. No pneumothor ax. Mediastinum: Cardiomegaly. Mild aortic tortuosity. Other: Interval removal of left-sided portacatheter. IMPRESSION: 1. Diffuse interstitial abnormality and bronchial thickening is again seen which can be seen with dif fuse bronchitis/reactive airways disease versus edema. Interstitial pneumonitis is also a considerati on. 2. Cardiomegaly. 3. Interval removal of left-sided portacatheter. [facility] Referring Provider Line: [phone] SITE ID: [id number]
[2017-10-29 12:50] LABS: BILIRUBIN,URINE NEGATIVE (NEGATIVE)
[2017-10-29 12:51] LABS: UA CHARGE (STRIP ONLY) YES; UR CULTURE IF IND NOT INDICATED
[2017-10-29] MEDS ORDERED: DEXAMETHASONE 10 MG/ML VIAL IVP STA (12:59)
[2017-10-29] MEDS ORDERED: diltiaZEM INJ 5 MG/ML VIAL IVP STA (12:59)
[2017-10-29] MEDS ORDERED: LEVALBUTEROL 1.25 MG/0.5 ML NEB INH STA (12:59)
--- NOTE | 2017-10-29 13:02 | ED Physician Documentation ---
History of Present Illness - Stated complaint Stated Complaint: SOA - Chief complaint Chief Complaint: Cardiac - History obtained from History obtained from: Patient - History of Present Illness Timing: How many days ago (several) Pain level max: 0 Pain level now: 0 Improved by: nothing Worsened by: lying flat - Additonal information Additional information: Patient is an 87-year-old female who presents to the emergency department with multiple complaints. The first is an elevated heart rate for the past few days. She states she has a long history of atrial fibrillation, was on 150 mg of metoprolol daily, decreased to 50 mg of metoprolol daily. Noticed her heart rate and blood pressure have increased since that time. She also states that she has been feeling short of breath for the past several months, especially at night when lying flat. States feels like she cannot get enough oxygen. Denies any chest pain. Has had rhinorrhea, congestion, intermittent subjective fevers during that time as well. Has not had any fevers for the past week. Has been on multiple courses of antibiotics without resolution. Review of Systems Ten Systems: 10 systems reviewed and negative Constitutional: denies: Fever, Chills Ears: denies: Ear pain Nose: reports: Rhinorrhea / runny nose, Congestion Throat: denies: Sore throat Cardiac: denies: Chest pain / pressure Respiratory: reports: Wheezing. 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: Breast cancer : Incontinence, Frequency HEENT: Chronic sinusitis Psych: Depression Musculoskeletal: Osteoarthritis, Fibromyalgia, Chronic back pain Derm: Rosacea - Past Surgical History Past Surgical History: Yes General: Colonoscopy, EGD Ortho: Hip replacement, Knee replacement, Other /TAX STAFF ACCOUNTANT: Hysterectomy, Mastectomy HEENT: Cataracts, Rhinoplasty - Present Medications Home Medications: Ambulatory Orders Medication Instructions Recorded Confirmed Levothyroxine Sodium [Levoxyl] 125 mcg PO DAILY 07/10/14 10/29/17 Metoprolol Succinate [Toprol Xl] 75 mg PO DAILY 07/10/14 10/29/17 Cholecalciferol (Vitamin D3) 5,000 unit PO DAILY 02/03/15 10/29/17 [Vitamin D3] Vitamin B Complex 1 cap PO DAILY 02/03/15 10/29/17 Furosemide [Lasix] 40 mg PO DAILY #30 tablet 07/26/17 10/29/17 Potassium Chloride 10 meq PO DAILY 08/29/17 10/29/17 Zolpidem [Ambien] 5 mg PO HS 08/29/17 10/29/17 Albuterol Sulf [Ventolin Hfa 2 puffs INH Q4HR PRN #1 inhaler 10/29/17 Inhaler] Benzonatate [Tessalon Perle] 100 - 200 mg PO TID PRN #30 capsule 10/29/17 Cetirizine [ZyrTEC] 10 mg PO DAILY PRN #20 tablet 10/29/17 - Allergies Allergies/Adverse Reactions: Allergies Allergy/AdvReac Type Severity Reaction Status Date / Time sulfadiazine [Sulfadiazine] Allergy Hives Verified 10/29/17 11:00 oxycodone HCl * AdvReac Mild Nausea Verified 10/29/17 11:00 [From Percocet] aspirin AdvReac Nausea Verified 10/29/17 11:00 - Social History Does the pt smoke?: No Smoking Status: Never smoker Does the pt drink ETOH?: Yes Does the pt have substance abuse?: No - Immunizations Immunizations are current?: Yes - POLST Patient has POLST: No PD ED PE NORMAL - Vitals Vital signs reviewed: Yes - General General: Alert and oriented X 3, No acute distress, Well developed/nourished - HEENT HEENT: PERRL, Moist mucous membranes - Neck Neck: Supple, no meningeal sign - Cardiac Cardiac: RRR, Strong equal pulses - Respiratory Respiratory: No respiratory distress, Other (Mild wheezing and crackles bilaterally) - Abdomen Abdomen: Soft, Non tender, Non distended - Derm Derm: Warm and dry, No rash - Extremities Extremities: No edema, No calf tenderness / cord - Neuro Neuro: Alert and oriented X 3 - Psych Psych: Normal mood, Normal affect Results - Vitals Vitals: Vital Signs - 24 hr 10/29/17 10/29/17 10/29/17 10:55 11:18 12:00 Temperature 36.7 C Heart Rate 107 H 110 H 110 H Respiratory 18 18 18 Rate Blood Pressure 130/87 H 130/87 H 140/88 H O2 Saturation 97 99 100 10/29/17 10/29/17 10/29/17 12:37 13:14 13:20 Temperature Heart Rate 110 H 102 H 94 Respiratory 26 H 18 22 Rate Blood Pressure 146/99 H 148/101 H 148/85 H O2 Saturation 99 100 100 10/29/17 10/29/17 10/29/17 13:21 13:25 13:27 Temperature Heart Rate 91 86 90 Respiratory 20 15 24 Rate Blood Pressure 127/69 123/76 O2 Saturation 96 100 10/29/17 10/29/17 10/29/17 13:30 13:37 13:59 Temperature Heart Rate 81 85 93 Respiratory 22 20 22 Rate Blood Pressure 127/79 138/91 H O2 Saturation 98 100 10/29/17 14:45 Temperature Heart Rate 104 H Respiratory 20 Rate Blood Pressure 131/85 H O2 Saturation 100 Oxygen O2 Source Room air - EKG (time done) 1059 Rate: Rate (enter#) (115) Rhythm: Atrial fibrillation (RVR) [place]: Normal QRS: LVH (with repol abnormality.) Compare to prior EKG: Unchanged from prior EKG (07/26/17) - Labs Labs: Laboratory Tests 10/29/17 10/29/17 10/29/17 11:18 11:18 11:18 WBC 4.5 L RBC 3.18 L Hgb 11.1 L Hct 34.0 L MCV 107.0 H MCH 35.0 H MCHC 32.7 RDW 16.2 H Plt Count 82 L MPV 10.7 Neut # 2.4 Lymph # 0.6 L Dent # 1.3 H Eos # 0.1 Baso # 0.1 Absolute Nucleated RBC 0.02 Nucleated RBC % 0.6 Sodium 136 Potassium 3.8 Chloride 98 L Carbon Dioxide 27 Anion Gap 11.0 BUN 13 Creatinine 0.8 Estimated GFR (MDRD) 68 L Glucose 122 H Lactic Acid Calcium 9.9 Total Bilirubin 0.9 AST 25 ALT 15 Alkaline Phosphatase 74 Troponin I < 0.04 Total Protein 7.0 Albumin 4.0 Globulin 3.0 Albumin/Globulin Ratio 1.3 Lipase 19 L Urine Color Urine Clarity Urine pH Ur Specific [place] Urine Protein Urine Glucose (UA) Urine Ketones Urine Occult Blood Urine Nitrite Urine Bilirubin Urine Urobilinogen Ur Leukocyte Esterase Ur Microscopic Review Urine Culture Comments 10/29/17 10/29/17 11:38 12:40 WBC RBC Hgb Hct MCV MCH MCHC RDW Plt Count MPV Neut # Lymph # Dent # Eos # Baso # Absolute Nucleated RBC Nucleated RBC % Sodium Potassium Chloride Carbon Dioxide Anion Gap BUN Creatinine Estimated GFR (MDRD) Glucose Lactic Acid 1.2 Calcium Total Bilirubin AST ALT Alkaline Phosphatase Troponin I Total Protein Albumin Globulin Albumin/Globulin Ratio Lipase Urine Color YELLOW Urine Clarity CLEAR Urine pH 6.0 Ur Specific [place] 1.010 Urine Protein NEGATIVE Urine Glucose (UA) NEGATIVE Urine Ketones NEGATIVE Urine Occult Blood TRACE-LYSE Urine Nitrite NEGATIVE Urine Bilirubin NEGATIVE Urine Urobilinogen 0.2 (NORMAL) Ur Leukocyte Esterase NEGATIVE Ur Microscopic Review NOT INDICATED Urine Culture Comments NOT INDICATED - Rads (name of study) cxr Radiology: Prelim report reviewed, EMP read contemporaneously, See rad report ( Diffuse interstitial abnormality and bronchial thickening is again seen which can be seen with diffuse bronchitis/reactive airways disease versus edema. Interstitial pneumonitis is also a consideration. 2. Cardiomegaly. 3. Interval removal of left-sided portacatheter. ) PD MEDICAL DECISION MAKING - ED course Complexity details: reviewed old records, reviewed results, re-evaluated patient , considered differential, d/w patient, d/w family ED course: Patient is an 87-year-old female who presents to the emergency department with atrial fibrillation with rapid ventricular response as well as what appears to be a viral upper respiratory infection. She feels much better after nebulizer Treatment in the emergency department. She is not hypoxic. Her heart rate decreased. Symptomatically she feels better. No evidence of pneumonia. We will trial her on decongestants and inhalers for home. Her metoprolol dose was changed several times recently with her doctor and will have her follow-up with her doctor closely to further adjust this. She may also benefit from being changed to calcium channel kerry rather than a beta-kerry due to her lung issues currently. Patient counseled regarding signs and symptoms for which I believe and urgent re-evaluation would be necessary. Patient with good understanding of and agreement to plan and is comfortable going home at this time This document was made in part using voice recognition software. While efforts are made to proofread this document, sound alike and grammatical errors may occur. Departure - Departure Disposition: 01 Home, Self Care Clinical Impression: Atrial fibrillation with RVR, Viral URI Condition: Good Instructions: ED Afib, ED Viral Syndrome Follow-Up: Roman Correia MD [Primary Care Provider] - Within 1 week Prescriptions: Albuterol Sulf [Ventolin Hfa Inhaler] 2 puffs INH Q4HR PRN #1 inhaler PRN Reason: Wheezing Benzonatate [Tessalon Perle] 100 - 200 mg PO TID PRN #30 capsule PRN Reason: Cough Cetirizine [ZyrTEC] 10 mg PO DAILY PRN #20 tablet PRN Reason: Nasal Congestion Comments: Return if you worsen. This should improve over the next few days as the medicines continue to work. Talk to your doctor about increasing your metoprolol. Discharge Date/Time: 10/29/17 14:45
[2017-10-29] MEDS ORDERED: diltiaZEM INJ 5 MG/ML VIAL ONE (13:17)
[2017-10-29] MEDS ORDERED: DEXAMETHASONE 10 MG/ML VIAL ONE (13:17)
[2017-10-29] MEDS ORDERED: SODIUM CHLORIDE INHALATION 3 ML NEB ONE (13:25)
[2017-10-29] MEDS ORDERED: LEVALBUTEROL 1.25 MG/0.5 ML NEB INH ONE (13:25)
[2017-10-29] MEDS ORDERED: IPRATROPIUM/ALBUTEROL 3 ML NEB INH STA (13:47)
[2017-10-29] MEDS ORDERED: IPRATROPIUM/ALBUTEROL 3 ML NEB INH ONE (14:02)
[2017-10-29 14:47] VITALS: BP 131/85
== END 2017-10-29 14:45 | disposition home or self-care (01) ==
LOC: EDUNIT# → ED 10:53
DX: I48.91 Unspecified atrial fibrillation (principal); Z79.01 Long term (current) use of anticoagulants; J06.9 Acute upper respiratory infection, unspecified; B97.89 Other viral agents as the cause of diseases classified elsewhere; I10 Essential (primary) hypertension; E78.00 Pure hypercholesterolemia, unspecified; G62.9 Polyneuropathy, unspecified; E03.9 Hypothyroidism, unspecified; K21.9 Gastro-esophageal reflux disease without esophagitis; M79.7 Fibromyalgia; M19.90 Unspecified osteoarthritis, unspecified site; Z86.73 Personal history of transient ischemic attack (TIA), and cerebral infarction without residual deficits; Z85.3 Personal history of malignant neoplasm of breast; Z90.10 Acquired absence of unspecified breast and nipple
CPT/HCPCS: 36415; 71010; 80053; 81003; 83605; 83690; 84484; 85025; 93005; 94640; 96374; 96375; 99284; A9270; J7620; 81001; 87086

== ENCOUNTER 2017-11-02 09:05 | Outpatient (CLI) | payer MEDICARE, BC | END 2017-11-02 09:06 | disposition critical access hospital (66) | LOC: EMS 09:05 | PROVIDERS: ATTEND Surgery | DX: R06.02 Shortness of breath (principal) | CPT/HCPCS: A0425; A0429 ==

== ENCOUNTER 2017-11-02 09:37 | Emergency (ER) | payer MEDICARE, BC ==
[2017-11-02] MEDS ORDERED: diltiaZEM INJ 5 MG/ML VIAL IVP STA (10:24)
[2017-11-02] MEDS ORDERED: FUROSEMIDE 40 MG/4 ML VIAL IVP STA (10:24)
--- NOTE | 2017-11-02 10:29 | ED Physician Documentation ---
PD HPI DYSPNEA - Stated complaint Stated Complaint: SOA - Chief complaint Chief Complaint: Resp - History obtained from History obtained from: Patient - History of Present Illness Timing - onset: How many weeks ago (1) Timing - onset during: Rest, Light activity Timing - duration: Hours Timing - details: Gradual onset, Still present, Waxing and waning Inciting event(s): URI Improved by: Rest, Sitting up Worsened by: Exertion, Laying flat, Coughing Associated symptoms: Cough, Bilateral edema. No: Hemoptysis, Chest pain / discomfort Similar symptoms before: Diagnosis (CHF and sinusitis) Recently seen: Emergency Dept - Additional information Additional information: 87-year-old female has had a cough for about the past 4 months has had issues both with her teeth and sinuses and has had some improvement with use of some antibiotic but continues to have cough. 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: Breast cancer : Incontinence, Frequency HEENT: Chronic sinusitis Psych: Depression Musculoskeletal: Osteoarthritis, Fibromyalgia, Chronic back pain Derm: Rosacea - Past Surgical History Past Surgical History: Yes General: Colonoscopy, EGD Ortho: Hip replacement, Knee replacement, Other /COUPON CLERK: Hysterectomy, Mastectomy HEENT: Cataracts, Rhinoplasty - Present Medications Home Medications: Ambulatory Orders Medication Instructions Recorded Confirmed Levothyroxine Sodium [Levoxyl] 125 mcg PO DAILY 07/10/14 11/02/17 Metoprolol Succinate [Toprol Xl] 75 mg PO DAILY 07/10/14 11/02/17 Cholecalciferol (Vitamin D3) 5,000 unit PO DAILY 02/03/15 11/02/17 [Vitamin D3] Vitamin B Complex 1 cap PO DAILY 02/03/15 11/02/17 Furosemide [Lasix] 40 mg PO DAILY #30 tablet 07/26/17 11/02/17 Potassium Chloride 10 meq PO DAILY 08/29/17 11/02/17 Zolpidem [Ambien] 5 mg PO HS 08/29/17 11/02/17 Albuterol Sulf [Ventolin Hfa 2 puffs INH Q4HR PRN #1 inhaler 10/29/17 11/02/17 Inhaler] Benzonatate [Tessalon Perle] 100 - 200 mg PO TID PRN #30 capsule 10/29/17 Cetirizine [ZyrTEC] 10 mg PO DAILY PRN #20 tablet 10/29/17 11/02/17 - Allergies Allergies/Adverse Reactions: Allergies Allergy/AdvReac Type Severity Reaction Status Date / Time sulfadiazine [Sulfadiazine] Allergy Hives Verified 11/02/17 13:04 oxycodone HCl * AdvReac Mild Nausea Verified 11/02/17 13:04 [From Percocet] aspirin AdvReac Nausea Verified 11/02/17 13:04 - Social History Does the pt smoke?: No Smoking Status: Never smoker Does the pt drink ETOH?: Yes Does the pt have substance abuse?: No - Immunizations Immunizations are current?: Yes - POLST Patient has POLST: No PD ED PE NORMAL - Vitals Vital signs reviewed: Yes (tachy and hypertensive) - General General: Alert and oriented X 3, No acute distress, Well developed/nourished - HEENT HEENT: Atraumatic, PERRL, EOMI, Other (minimal inflamation to the left TM. There is point tenderness to the right maxiallary sinus and the right frontal sinus. ) - Neck Neck: Supple, no meningeal sign, No bony TTP, Other (There is JVD present) - Cardiac Cardiac: No murmur, Other (irregularly irregular. ) Results - Vitals Vitals: Vital Signs - 24 hr 11/02/17 11/02/17 11/02/17 09:44 11:00 13:06 Temperature 37.2 C Heart Rate 108 H 80 92 Respiratory 22 22 22 Rate Blood Pressure 136/84 H 118/71 137/83 H O2 Saturation 97 98 98 11/02/17 14:08 Temperature 36.6 C Heart Rate 104 H Respiratory 23 Rate Blood Pressure 134/85 H O2 Saturation 100 Oxygen O2 Source Room air - EKG (time done) 1017 Rate: Rate (enter#) (108) Rhythm: Atrial fibrillation [place]: LAD Ischemia: Q waves Compare to prior EKG: Changed from prior EKG (SPT 10-29-2017 the T-wave amplitude is decreased. ) Computer interpretation: Agree with computer - Labs Labs: Laboratory Tests 11/02/17 11/02/17 11/02/17 10:45 10:45 10:45 WBC 4.4 L RBC 3.40 L Hgb 12.1 Hct 36.3 L MCV 106.6 H MCH 35.6 H MCHC 33.4 RDW 16.3 H Plt Count 89 L MPV 10.7 Neut # 2.8 Lymph # 0.6 L [place] # 0.9 Eos # 0.1 Baso # 0.1 Absolute Nucleated RBC 0.03 Nucleated RBC % 0.7 Sodium 136 Potassium 4.3 Chloride 96 L Carbon Dioxide 27 Anion Gap 13.0 BUN 18 Creatinine 0.8 Estimated GFR (MDRD) 68 L Glucose 115 H Calcium 10.3 Total Bilirubin 1.0 AST 38 ALT 26 Alkaline Phosphatase 89 Troponin I < 0.04 B-Natriuretic Peptide Total Protein 7.6 Albumin 4.3 Globulin 3.3 Albumin/Globulin Ratio 1.3 Lipase 17 L Urine Color Urine Clarity Urine pH Ur Specific [place] Urine Protein Urine Glucose (UA) Urine Ketones Urine Occult Blood Urine Nitrite Urine Bilirubin Urine Urobilinogen Ur Leukocyte Esterase Urine RBC Urine WBC Ur Squamous Epith Cells Urine Bacteria Ur Microscopic Review Urine Culture Comments 11/02/17 11/02/17 10:45 11:54 WBC RBC Hgb Hct MCV MCH MCHC RDW Plt Count MPV Neut # Lymph # [place] # Eos # Baso # Absolute Nucleated RBC Nucleated RBC % Sodium Potassium Chloride Carbon Dioxide Anion Gap BUN Creatinine Estimated GFR (MDRD) Glucose Calcium Total Bilirubin AST ALT Alkaline Phosphatase Troponin I B-Natriuretic Peptide 434 H Total Protein Albumin Globulin Albumin/Globulin Ratio Lipase Urine Color LIGHT YELLOW Urine Clarity CLEAR Urine pH 6.0 Ur Specific [place] 1.015 Urine Protein NEGATIVE Urine Glucose (UA) NEGATIVE Urine Ketones NEGATIVE Urine Occult Blood NEGATIVE Urine Nitrite POSITIVE H Urine Bilirubin NEGATIVE Urine Urobilinogen 0.2 (NORMAL) Ur Leukocyte Esterase NEGATIVE Urine RBC 0-5 Urine WBC 0-3 Ur Squamous Epith Cells FEW Squamous Urine Bacteria Many H Ur Microscopic Review INDICATED Urine Culture Comments INDICATED - Rads (name of study) 2 view chest Radiology: Prelim report reviewed (Impression: Mild congestive heart failure. Pulmonary vascular congestion is more pronounced on the right.), EMP read indepedently, See rad report PD MEDICAL DECISION MAKING - ED course Complexity details: reviewed old records, reviewed results, re-evaluated patient , considered differential, d/w patient, d/w family ED course: 87-year-old female was been having some trouble with shortness of breath and cough for months now. Today in the emergency department she is found to have congestive heart failure. She does have a plethoric IVC on interrogation and jugular venous distention. She is given intravenous Lasix 40 mg with improvement in her breathing and reduction in her jugular venous distention. She does not have elevation of her troponin. She did have a rapid atrial fibrillation and this improved with a dose of diltiazem 20 mg intravenously. She does have a cough and sinus congestion and this appears to be a separate problem and chronic. I believe the reason she ended up in the emergency department today was because of shortness of breath. She does equate the cough to the shortness of breath and she has been attempting to use an inhaler without effect. I have asked her to restart her metoprolol at 50 mg twice per day instead of once per day for improvement in rate control and to increase her Lasix to 40 mg per day and do daily weights. I have asked her follow-up with ARISTEO Couch. We did discuss admission to the hospital and I do not believe she meets criteria for admission the patient would much rather go home. I do have some reservations about her rate control. Departure - Departure Disposition: Home, Self Care Clinical Impression: Atrial fibrillation with rapid ventricular response Congestive heart failure Qualifiers: Congestive heart failure type: combined Congestive heart failure chronicity: acute on chronic Qualified Code(s): I50.43 - Acute on chronic combined systolic (congestive) and diastolic (congestive) heart failure Sinusitis, chronic Qualifiers: Sinusitis location: unspecified location Qualified Code(s): J32.9 - Chronic sinusitis, unspecified Condition: Stable Instructions: ED CHF Left Side, ED Sinusitis No Abx Follow-Up: Roman Correia MD [Primary Care Provider] - Comments: Today it appears that your shortness of breath has been mostly due to congestive heart. Increase her dose of Lasix to 40 mg per day and your dose of metoprolol to 50 mg twice per day. Follow-up with Krystle Couch for further medication adjustments as needed.
[2017-11-02 11:03] LABS: BASOPHILS # (AUTO) 0.1 10^3/uL (0.0-0.1); BASOPHILS % (AUTO) 1.2 %; EOSINOPHILS # (AUTO) 0.1 10^3/uL (0.0-0.7); EOSINOPHILS % (AUTO) 1.4 %; HCT - HEMATOCRIT 36.3 % (37.0-47.0); HGB - HEMOGLOBIN 12.1 g/dL (12.0-16.0); LYMPHOCYTES # (AUTO) 0.6 10^3/uL (1.5-3.5); LYMPHOCYTES % (AUTO) 13.8 %; MEAN CORPUSCULAR HEMOGLOBIN 35.6 pg (27.0-31.0); MEAN CORPUSCULAR HGB CONC 33.4 g/dL (32.0-36.0); MEAN CORPUSCULAR VOLUME 106.6 fL (81.0-99.0); MEAN PLATELET VOLUME 10.7 fL (7.9-10.8); MONOCYTES # (AUTO) 0.9 10^3/uL (0.0-1.0); MONOCYTES % (AUTO) 20.4 %; NEUTROPHILS # (AUTO) 2.8 10^3/uL (1.5-6.6); NEUTROPHILS % (AUTO) 63.2 %; NUCLEATED RED BLOOD CELLS AUTO 0.7 /100WBC; RED CELL DISTRIBUTION WIDTH 16.3 % (12.0-15.0); UNCORRECTED WHITE BLOOD COUNT 4.4 x10^3/uL; WHITE BLOOD COUNT 4.4 x10^3/uL (4.8-10.8)
[2017-11-02 11:05] LABS: ALBUMIN/GLOBULIN RATIO 1.3 (1.0-2.2); CALCIUM 10.3 mg/dL (8.5-10.3); CREATININE 0.8 mg/dL (0.4-1.0); POTASSIUM 4.3 mmol/L (3.5-5.0); TOTAL PROTEIN 7.6 g/dL (6.7-8.2)
--- NOTE | 2017-11-02 11:25 | XRAY Preliminary Report ---
Exam: XR CHEST 2 VIEW PA/LAT IMPRESSION: Mild congestive heart failure. Pulmonary vascular congestion is more pronounced on the ri ght. [facility] SITE ID: [id number]
--- NOTE | 2017-11-02 11:27 | XRAY Report ---
EXAM: CHEST RADIOGRAPHY EXAM DATE: 11/02/2017 11:00 AM. CLINICAL HISTORY: Shortness of air for several days. COMPARISON: 10/29/2017. TECHNIQUE: 2 views. FINDINGS: Lungs/Pleura: Right greater than left interstitial opacities. Mild left basilar opacity. No pneumotho rax. No significant pleural effusion. Mediastinum: Cardiomegaly. Other: None. IMPRESSION: Mild congestive heart failure. Pulmonary vascular congestion is more pronounced on the ri ght. [facility] Referring Provider Line: [phone] SITE ID: [id number]
[2017-11-02 12:25] LABS: BILIRUBIN,URINE NEGATIVE (NEGATIVE)
[2017-11-02 12:32] LABS: UA w/ MICROSCOPIC CHARGE YES
[2017-11-02 12:33] LABS: UR CULTURE IF IND INDICATED; WBC,URINE 0-3 /HPF (0-5)
[2017-11-02 14:09] VITALS: BP 134/85
--- NOTE | 2017-11-05 07:50 | ED Physician Documentation ---
ED Addendum - Addendum Addendum: 11/05/17 07:49 Chart accessed for culture review. Recommend macrobid 100mg PO BID x 1 week for UA culture (+) for klebsiella oxytoca
== END 2017-11-02 14:30 | disposition home or self-care (01) ==
LOC: ED 09:37
DX: I48.91 Unspecified atrial fibrillation (principal); I11.0 Hypertensive heart disease with heart failure; I50.41 Acute combined systolic (congestive) and diastolic (congestive) heart failure; J32.9 Chronic sinusitis, unspecified; E78.00 Pure hypercholesterolemia, unspecified; E03.9 Hypothyroidism, unspecified; G62.9 Polyneuropathy, unspecified; Z86.73 Personal history of transient ischemic attack (TIA), and cerebral infarction without residual deficits; Z85.3 Personal history of malignant neoplasm of breast; Z90.10 Acquired absence of unspecified breast and nipple; Z96.649 Presence of unspecified artificial hip joint; Z96.659 Presence of unspecified artificial knee joint
CPT/HCPCS: 36415; 71020; 80053; 81001; 81003; 83690; 83880; 84484; 85025; 87077; 87086; 93005; 96374; 99284

== ENCOUNTER 2017-11-13 08:00 | Outpatient (CLI) | payer MEDICARE, BC ==
[2017-11-13 19:03] LABS: BUN - BLOOD UREA NITROGEN 19 mg/dL (6-20); CALCIUM 10.8 mg/dL (8.5-10.3); CARBON DIOXIDE - CO2 35 mmol/L (21-32); CHLORIDE 93 mmol/L (101-111); GFR - MDRD 53 (>89); GLUCOSE 113 mg/dL (70-100); SODIUM 137 mmol/L (135-145)
[2017-11-13 19:13] LABS: HCT - HEMATOCRIT 37.8 % (37.0-47.0); HGB - HEMOGLOBIN 12.1 g/dL (12.0-16.0); MEAN CORPUSCULAR HEMOGLOBIN 34.4 pg (27.0-31.0); MEAN CORPUSCULAR VOLUME 107.7 fL (81.0-99.0); MEAN PLATELET VOLUME 10.4 fL (7.9-10.8); RED BLOOD COUNT 3.51 10^6/uL (4.20-5.40); RED CELL DISTRIBUTION WIDTH 16.6 % (12.0-15.0); WHITE BLOOD COUNT 4.8 x10^3/uL (4.8-10.8)
== END 2017-11-13 08:01 | disposition home or self-care (01) ==
LOC: LAB.F 08:00
PROVIDERS: ATTEND Family Medicine
DX: E03.9 Hypothyroidism, unspecified (principal); I48.91 Unspecified atrial fibrillation; I50.9 Heart failure, unspecified
CPT/HCPCS: 36415; 80048; 83880; 84443

== ENCOUNTER 2017-11-27 10:32 | Emergency (ER) | payer MEDICARE, BC ==
--- NOTE | 2017-11-27 11:28 | ED Physician Documentation ---
PD HPI ANIMAL BITE - Stated complaint Stated Complaint: CAT SCRATCH ON HAND - Chief complaint Chief Complaint: Ext Problem - History obtained from History obtained from: Patient - History of Present Illness Location of injury(ies): Right hand Details of the event: Cat, Scratch (got cat scratch on hand 3 days ago and it bled well initially, and it recurrently bleeds still with movemetn despite bandaids and ointment. No redness nor discahrge.), Pet animal, Well appearing, Provoked Timing - onset: How many days ago (3) Timing - details: Abrupt onset, Still present (still bleeds at times) Worsened by: Moving Associated symptoms: No: Weakness, Numbness, Swelling, Discolored Contributing factors: No: Immunocompromised Similar symptoms before: Has not had sx before Recently seen: Not recently seen Review of Systems Constitutional: denies: Fever, Chills Skin: denies: Rash, Lesions Neurologic: denies: Focal weakness, Numbness PD PAST MEDICAL HISTORY - Past Medical History Past Medical History: Yes Cardiovascular: Hypertension, High cholesterol, Atrial fibrillation Respiratory: Pneumonia, Shortness of breath Neuro: CVA, Headache/migraine, Peripheral neuropathy Endocrine/Autoimmune: HyPOthyroidism GI: GERD, Hemorrhoids 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: Breast cancer : Incontinence, Frequency HEENT: Chronic sinusitis Psych: Depression Musculoskeletal: Osteoarthritis, Fibromyalgia, Chronic back pain Derm: Rosacea - Past Surgical History Past Surgical History: Yes General: Colonoscopy, EGD Ortho: Hip replacement, Knee replacement, 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: Hysterectomy, Mastectomy HEENT: Cataracts, Rhinoplasty - Present Medications Home Medications: Ambulatory Orders Medication Instructions Recorded Confirmed Levothyroxine Sodium [Levoxyl] 125 mcg PO DAILY 07/10/14 11/27/17 Metoprolol Succinate [Toprol Xl] 100 mg PO DAILY 07/10/14 11/27/17 Cholecalciferol (Vitamin D3) 5,000 unit PO DAILY 02/03/15 11/27/17 [Vitamin D3] Vitamin B Complex 1 cap PO DAILY 02/03/15 11/27/17 Potassium Chloride 10 meq PO DAILY 08/29/17 11/27/17 Zolpidem [Ambien] 5 mg PO HS 08/29/17 11/27/17 Albuterol Sulf [Ventolin Hfa 2 puffs INH Q4HR PRN #1 inhaler 10/29/17 11/27/17 Inhaler] Benzonatate [Tessalon Perle] 100 - 200 mg PO TID PRN #30 capsule 10/29/17 Cetirizine [ZyrTEC] 10 mg PO DAILY PRN #20 tablet 10/29/17 11/27/17 Aspirin 81 mg PO DAILY 11/27/17 11/27/17 Furosemide [Lasix] 80 mg PO DAILY 11/27/17 11/27/17 - Allergies Allergies/Adverse Reactions: Allergies Allergy/AdvReac Type Severity Reaction Status Date / Time sulfadiazine [Sulfadiazine] Allergy Hives Verified 11/27/17 11:13 oxycodone HCl * AdvReac Mild Nausea Verified 11/27/17 11:13 [From Percocet] - Social History Does the pt smoke?: No Smoking Status: Never smoker Does the pt drink ETOH?: Yes Does the pt have substance abuse?: No - Immunizations Immunizations are current?: Yes - POLST Patient has POLST: No PD ED PE NORMAL - Vitals Vital signs reviewed: Yes - General General: Alert and oriented X 3, No acute distress, Well developed/nourished - Derm Derm: Normal color, Warm and dry - Extremities Extremities: Other (dorsum right hand with 2.5 cm lac that is just to fatty tissue layer but overlying a superficial vein and has slight oozing of blood after cleansing. No signs of infection. ) - Neuro Neuro: No motor deficit, No sensory deficit Results - Vitals Vitals: Oxygen O2 Source Room air Procedures - Laceration (location) dorsum right hand Length in cm: 2.5 Wound type: Linear, Into subcut fat, Clean Neurovascular status: Sensory intact, Motor intact. No: Vascular intact ( superficial vein with slight bleeding and mild bruising under skin in the area.) Tendon involvement: Tendon intact Anesthesia: Lidocaine 1% with epi Wound Preparation: Irrigated copiously NS. No: FB identified Skin layer closure: Nylon, Running, Size #-0 - enter number (5) Other: Patient tolerated well, No complications, Neurovascular intact, Dressing applied, Tetanus UTD Complexity: Simple PD MEDICAL DECISION MAKING - ED course Complexity details: considered differential (small lac that had apparently injured superficial vein so is recurrently bleeding. No signs of infection now after 3 days. I sutured it so bleeding would stop and wound heal better. ), d/w patient Departure - Departure Disposition: 01 Home, Self Care Clinical Impression: Cat scratch Hand laceration Qualifiers: Encounter type: initial encounter Foreign body presence: without foreign body Laterality: right Qualified Code(s): S61.411A - Laceration without foreign body of right hand, initial encounter Condition: Stable Record reviewed to determine appropriate education?: Yes Instructions: ED Laceration Hand Follow-Up: Krystle Couch PA-C [Primary Care Provider] - Comments: It is okay to wash and shower. Clean off the wound twice a day with soap and water, or peroxide and water. Apply some antibiotic ointment to it to keep it moist. Also to watch for signs of infection such as purulence, redness or increasing pain. Return to your primary care or the ER at the specified time for suture removal. Suture removal 7 date days. Recheck if signs of infection. He been 3 days now without any signs of infections I do not think this needs antibiotics or such. Discharge Date/Time: 11/27/17 12:38
[2017-11-27] MEDS ORDERED: LIDOCAINE MPF 1%-EPI 1:200000 30 ML VIAL SUBQ STA (11:44)
[2017-11-27 12:40] VITALS: BP 121/67
== END 2017-11-27 12:38 | disposition home or self-care (01) ==
LOC: ED 10:32
DX: S61.411A Laceration without foreign body of right hand, initial encounter (principal); S65.911A Laceration of unspecified blood vessel at wrist and hand level of right arm, initial encounter; W55.03XA Scratched by cat, initial encounter; I10 Essential (primary) hypertension; E03.9 Hypothyroidism, unspecified; E78.00 Pure hypercholesterolemia, unspecified; G62.9 Polyneuropathy, unspecified; Z85.3 Personal history of malignant neoplasm of breast; Z90.10 Acquired absence of unspecified breast and nipple; Z96.649 Presence of unspecified artificial hip joint; Z96.659 Presence of unspecified artificial knee joint; Z79.82 Long term (current) use of aspirin
CPT/HCPCS: 12001; 99282; 99283

== ENCOUNTER 2017-12-07 16:18 | Outpatient (CLI) | payer MEDICARE, BC ==
[2017-12-07 17:51] LABS: BILIRUBIN,URINE NEGATIVE (NEGATIVE); GLUCOSE, URINE (UA) NEGATIVE (NEGATIVE); KETONES,URINE (UA) NEGATIVE (NEGATIVE); LEUKOCYTE ESTERASE, URINE NEGATIVE (NEGATIVE); NITRITE,URINE POSITIVE (NEGATIVE); OCCULT BLOOD,URINE NEGATIVE (NEGATIVE); PROTEIN,URINE NEGATIVE (NEGATIVE); UROBILINOGEN,URINE 0.2 (NORMAL) E.U./dL (NORMAL)
[2017-12-07 17:53] LABS: CLARITY,URINE SL. CLOUDY (CLEAR)
[2017-12-07 18:13] LABS: BACTERIA,URINE Many /HPF (None Seen); RBC,URINE 0-5 /HPF (0-5); SQUAMOUS EPITHELIAL CELL,UR FEW Squamous (<= Few); WBC CLUMPS,URINE PRESENT
== END 2017-12-07 16:19 | disposition home or self-care (01) ==
LOC: LAB.R 16:18
PROVIDERS: ATTEND Physician Assistant Medical
DX: R39.89 Other symptoms and signs involving the genitourinary system (principal)
CPT/HCPCS: 81001; 87077; 87086

== ENCOUNTER 2018-01-07 10:26 | Outpatient (CLI) | payer MEDICARE, BC ==
[2018-01-07] MEDS ORDERED: BARIUM SULFATE 148 GM POWDER PO ONE (11:20)
[2018-01-07] MEDS ORDERED: BARIUM SULFATE 135 ML BOTTLE PO ONE (11:20)
--- NOTE | 2018-01-07 11:53 | XRAY Report ---
ESOPHAGRAM: 01/07/2018 CLINICAL INDICATION: Possible esophageal stricture, dysphagia, reflux. FINDINGS: Esophagram was performed in the upright and prone positions. There is a fixed narrowing of the mid esophagus, just below the level of the daniel, with residual lumen measuring approximately 2 mm. Some irregularity is seen at the superior and inferior extent of the stricture, which appears to span approximately 1 cm in length. Presbyesophagus was noted. No hiatal hernia is seen. Given the small caliber of the lumen through the stricture, the barium pill was not administered. IMPRESSION: HIGH GRADE STRICTURING OF THE MID ESOPHAGUS, WITH SOME IRREGULARITY AT THE SUPERIOR AND INFERIOR MARGINS OF THE STRICTURING. CONSIDER ENDOSCOPY FOR FURTHER EVALUATION. FLUOROSCOPY TIME: 2 MINUTES 18 SECONDS; 25 SPOT IMAGES OBTAINED. TD: 01/07/2018 11:53
== END 2018-01-07 10:27 | disposition home or self-care (01) ==
LOC: DI 10:26
PROVIDERS: ATTEND Family Medicine
DX: K22.2 Esophageal obstruction (principal)
CPT/HCPCS: 74220; A9270

== ENCOUNTER 2018-01-09 14:33 | Outpatient (CLI) | payer MEDICARE, BC ==
[2018-01-09 14:53] LABS: CREATININE 0.8 mg/dL (0.4-1.0)
[2018-01-09] MEDS ORDERED: IOPAMIDOL-300 100 ML VIAL ONE (15:45)
[2018-01-09] MEDS ORDERED: IOPAMIDOL-300 100 ML VIAL IVP ONE (16:49)
--- NOTE | 2018-01-09 16:51 | CT Report ---
CT CHEST WITH CONTRAST: 01/09/2018 CLINICAL INDICATION: Esophageal stricturing, shortness of breath, history of breast cancer. COMPARISON: 06/02/2017. TECHNIQUE: Axial CT images of the chest were obtained with 80 mL Isovue 300 intravenously FINDINGS: The heart and great vessels demonstrate mild atherosclerotic calcification. There has been interval increase in mediastinal adenopathy, with the largest node, in the subcarinal region, now measuring 3.4 x 2.3 cm. This increase in mediastinal adenopathy likely explains the esophageal stricturing seen on esophagram of 01/07/2018. There has been interval increase in pulmonary nodules, with a right lower lobe nodule now measuring 1.3 cm, and a left lower lobe nodule measuring 1.1 cm, as well as smaller bilateral pulmonary nodules. No focal infiltrate is appreciated. Trace pleural effusions are noted. No pneumothorax. Osseous structures demonstrate degenerative changes. There is sclerosis in the T11 and T12 vertebral bodies, suspicious for osseous metastatic disease. Anterior compression fracture of L2 is stable from previous. Limited evaluation of upper abdominal structures demonstrates normal adrenal glands. IMPRESSION: INTERVAL INCREASE IN MEDIASTINAL ADENOPATHY AND WIDESPREAD PULMONARY NODULES, COMPATIBLE WITH METASTATIC DISEASE. ESOPHAGEAL STRICTURING APPEARS LIKELY DUE TO MEDIASTINAL ADENOPATHY. TRACE PLEURAL EFFUSIONS. 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 In accordance with CT protocol optimization, one or more of the following dose reduction techniques were utilized for this exam: automated exposure control, adjustment of mA and/or KV based on patient size, or use of iterative reconstructive technique. TD: 01/09/2018 16:50 MTDD
== END 2018-01-09 14:34 | disposition home or self-care (01) ==
LOC: LAB 14:33 → DI 14:34
PROVIDERS: ATTEND Surgery
DX: K22.2 Esophageal obstruction (principal); R06.02 Shortness of breath; Z85.3 Personal history of malignant neoplasm of breast; R91.8 Other nonspecific abnormal finding of lung field; R59.0 Localized enlarged lymph nodes; J90 Pleural effusion, not elsewhere classified; M89.9 Disorder of bone, unspecified
CPT/HCPCS: 36415; 71260; 82565; Q9967

== ENCOUNTER 2018-01-11 12:22 | Outpatient (CLI) | payer MEDICARE, BC | END 2018-01-11 12:23 | disposition critical access hospital (66) | LOC: EMS 12:22 | PROVIDERS: ATTEND Surgery | DX: R07.9 Chest pain, unspecified (principal); R06.02 Shortness of breath | CPT/HCPCS: A0425; A0427 ==

== ENCOUNTER 2018-01-11 12:47 | Emergency (ER) | payer MEDICARE, BC ==
[2018-01-11] MEDS ORDERED: cefTRIAXone 1 GM in SODIUM CHLORIDE 0.9% MINIBAG 100 ML IV STA (13:09)
[2018-01-11] MEDS ORDERED: SODIUM CHLORIDE 0.9% 1,000 ML IV ONE (13:09)
[2018-01-11] MEDS ORDERED: MORPHINE 2 MG/ML CARPUJECT IVP STA ×2 (13:09→16:11)
--- NOTE | 2018-01-11 13:15 | ED Physician Documentation ---
PD HPI CHEST PAIN - Stated complaint Stated Complaint: SOA, CAN'T SWALLOW, CA - Chief complaint Chief Complaint: Resp - History obtained from History obtained from: Patient - History of Present Illness Timing - onset: Other (Hola 88yo woman who has a H/O breast CA 1.5 years ago with mastectomy/chemo/rad. Now with progressive dysphagia for weeks and chest pain. Now unable to swallow even liquids. Better somewhat after nitroglycerin en route. CT 2 days yesterday with mult mets including paraesophageal mets and esophagram only open 2mm.) Review of Systems Ten Systems: 10 systems reviewed and negative Constitutional: denies: Fever, Chills Nose: denies: Rhinorrhea / runny nose, Congestion Cardiac: reports: Chest pain / pressure Respiratory: reports: Dyspnea. denies: Cough GI: reports: Abdominal Pain, Nausea, Vomiting PD PAST MEDICAL HISTORY - Past Medical History Cardiovascular: Hypertension, High cholesterol, Atrial fibrillation Respiratory: Pneumonia, Shortness of breath Neuro: CVA, Headache/migraine, Peripheral neuropathy Endocrine/Autoimmune: HyPOthyroidism GI: GERD, Hemorrhoids [employer]: Breast cancer : Incontinence, Frequency HEENT: Chronic sinusitis Psych: Depression Musculoskeletal: Osteoarthritis, Fibromyalgia, Chronic back pain Derm: Rosacea - Past Surgical History Past Surgical History: Yes General: Colonoscopy, EGD Ortho: Hip replacement, Knee replacement, Other /[employer]: Hysterectomy, Mastectomy HEENT: Cataracts, Rhinoplasty - Present Medications Home Medications: Ambulatory Orders Medication Instructions Recorded Confirmed Levothyroxine Sodium [Levoxyl] 125 mcg PO QDAC 07/10/14 01/11/18 Metoprolol Succinate [Toprol Xl] 50 mg PO BID 07/10/14 01/11/18 Cholecalciferol (Vitamin D3) 5,000 unit PO DAILY 02/03/15 01/11/18 [Vitamin D3] Vitamin B Complex 1 cap PO DAILY 02/03/15 01/11/18 Potassium Chloride 10 meq PO DAILY 08/29/17 01/11/18 Zolpidem [Ambien] 5 mg PO QPM 08/29/17 01/11/18 Albuterol Sulf [Ventolin Hfa 2 puffs INH Q4HR PRN #1 inhaler 10/29/17 01/11/18 Inhaler] Cetirizine [ZyrTEC] 10 mg PO DAILY PRN #20 tablet 10/29/17 01/11/18 Aspirin 81 mg PO DAILY 11/27/17 01/11/18 Furosemide [Lasix] 80 mg PO 0600 11/27/17 01/11/18 Furosemide 40 mg PO 1200 01/11/18 01/11/18 Losartan Potassium 50 mg PO DAILY 01/11/18 01/11/18 Omeprazole [Omeprazole] 20 mg PO BID 01/11/18 01/11/18 Triamcinolone Acetonide 1 applic TOP BID 01/11/18 01/11/18 - Allergies Allergies/Adverse Reactions: Allergies Allergy/AdvReac Type Severity Reaction Status Date / Time sulfadiazine [Sulfadiazine] Allergy Hives Verified 11/27/17 11:13 oxycodone HCl * AdvReac Mild Nausea Verified 11/27/17 11:13 [From Percocet] - Social History Does the pt smoke?: No Smoking Status: Never smoker Does the pt drink ETOH?: Yes Does the pt have substance abuse?: No - Family History Family history: reports: Non contributory - Immunizations Immunizations are current?: Yes - POLST Patient has POLST: No PD ED PE NORMAL - Vitals Vital signs reviewed: Yes - General General: Alert and oriented X 3, No acute distress - Neck Neck: Supple, no meningeal sign, No bony TTP - Cardiac Cardiac: RRR, No murmur - Respiratory Respiratory: No respiratory distress, Clear bilaterally - Abdomen Abdomen: Soft, Non tender - Back Back: No CVA TTP, No spinal TTP - Derm Derm: No rash - Extremities Extremities: No edema, No calf tenderness / cord - Neuro Neuro: Alert and oriented X 3, Normal speech - Psych Psych: Normal mood, Normal affect Results - Vitals Vitals: Vital Signs - 24 hr 01/11/18 12:53 Temperature 36.9 C Heart Rate 126 H Respiratory 94 H Rate Blood Pressure 138/87 H Oxygen O2 Source Room air - EKG (time done) 1326 Rate: Rate (enter#) (106) Rhythm: Atrial fibrillation [place]: LAD QRS: LVH Ischemia: Non specific changes Compare to prior EKG: Unchanged from prior EKG (11/02/17) Computer interpretation: Agree with computer - Labs Labs: Laboratory Tests 01/11/18 01/11/18 01/11/18 13:51 13:51 13:51 WBC 6.4 RBC 3.08 L Hgb 11.1 L Hct 33.3 L MCV 108.1 H MCH 35.9 H MCHC 33.2 RDW 16.6 H Plt Count 67 L MPV 10.6 Neut # Not Reportable Lymph # Not Reportable Price # Not Reportable Eos # Not Reportable Baso # Not Reportable Absolute Nucleated RBC Not Reportable Total Counted 100 Band Neuts % (Manual) 0 Abnorm Lymph % (Manual) 0 Metamyelocytes % 2 H Nucleated RBC % Not Reportable Neutrophils # (Manual) 3.8 Lymphocytes # (Manual) 0.7 L Monocytes # (Manual) 1.5 H Eosinophils # (Manual) 0.1 Basophils # (Manual) 0.2 H Differential Comment MANUAL DIFFERENTIAL Manual Slide Review Indicated WBC Morphology NORMAL APPEARANCE Platelet Estimate DECREASED (<130,000) Platelet Morphology NORMAL APPEARANCE RBC Morph Micro Appear NORMAL APPEARANCE Sodium 134 L Potassium 3.7 Chloride 94 L Carbon Dioxide 29 Anion Gap 11.0 BUN 10 Creatinine 0.8 Estimated GFR (MDRD) 68 L Glucose 123 H Calcium 10.3 Total Bilirubin 1.8 H AST 20 ALT 12 Alkaline Phosphatase 89 Troponin I 0.05 Total Protein 6.9 Albumin 3.9 Globulin 3.0 Albumin/Globulin Ratio 1.3 Lipase < 10 L PD MEDICAL DECISION MAKING - ED course ED course: This is a hola and but unfortunate 88-year-old woman with apparent metastatic breast cancer to multiple areas including paraesophageal with paraesophageal stricturing and now inability to swallow even fluids causing pain and discomfort. I spoke with her surgeon, Dr. Blackwell, given her findings he would not be able to do a PEG tube. He recommended for palliative care potentially transfer to an advanced GI facility that continue esophageal stenting. Options were discussed with the patient including everything from going home with pain management and eventual hospice enrollment to staying at the hospital here for pain management to transfer to a GI facility and she is considering this. She did decide that she wanted to be transferred, we called [facility] but they were full. After that I spoke with Dr. Betancourt reinforcing iron worker helper for Dr. Cr at [facility] who felt that [facility] did have all the capability she would need given the circumstances and GI was paged. I spoke with Dr. Grossman, GI at [facility] who will see in consult. Thought over the phone at least that may be a G-tube would be more appropriate but it deserved a discussion when she got there. Deferred to the hospitalist for admission and they were paged, this was about 2:[address] Schulte at [facility] at 3:25 PM, cobras were completed. Departure - Departure Disposition: 02 Transfer Acute Care Hosp Clinical Impression: Metastatic breast cancer, Esophageal obstruction Condition: Stable
[2018-01-11 14:09] LABS: BASOPHILS % (AUTO) 0.3 %; EOSINOPHILS % (AUTO) 1.9 %; HGB - HEMOGLOBIN 11.1 g/dL (12.0-16.0); MEAN CORPUSCULAR HEMOGLOBIN 35.9 pg (27.0-31.0); MEAN CORPUSCULAR HGB CONC 33.2 g/dL (32.0-36.0); MEAN CORPUSCULAR VOLUME 108.1 fL (81.0-99.0); MEAN PLATELET VOLUME 10.6 fL (7.9-10.8); MONOCYTES % (AUTO) 25.6 %; NEUTROPHILS % (AUTO) 65.2 %; PLT - PLATELET COUNT 67 10^3/uL (130-450); RED BLOOD COUNT 3.08 10^6/uL (4.20-5.40); RED CELL DISTRIBUTION WIDTH 16.6 % (12.0-15.0); WHITE BLOOD COUNT 6.4 x10^3/uL (4.8-10.8)
[2018-01-11 14:27] LABS: ALBUMIN 3.9 g/dL (3.2-5.5); ALBUMIN/GLOBULIN RATIO 1.3 (1.0-2.2); ALKALINE PHOSPHATASE 89 IU/L (42-121); ALT ALANINE AMINOTRANSFERASE 12 IU/L (10-60); AST ASPARTATE AMINOTRANSFERASE 20 IU/L (10-42); BILIRUBIN,TOTAL 1.8 mg/dL (0.2-1.0); BUN - BLOOD UREA NITROGEN 10 mg/dL (6-20); CALCIUM 10.3 mg/dL (8.5-10.3); CARBON DIOXIDE - CO2 29 mmol/L (21-32); CHLORIDE 94 mmol/L (101-111); CREATININE 0.8 mg/dL (0.4-1.0); GFR - MDRD 68 (>89); GLUCOSE 123 mg/dL (70-100); LIPASE < 10 U/L (22-51); SODIUM 134 mmol/L (135-145); TOTAL PROTEIN 6.9 g/dL (6.7-8.2)
[2018-01-11 14:35] LABS: ABNORMAL LYMPHS % (MANUAL) 0 %; BAND NEUTROPHILS % (MANUAL) 0 %
[2018-01-11 14:37] LABS: BASOPHILS # (MANUAL) 0.2 10^3/uL (0-0.1); BASOPHILS % (MANUAL) 3 %; DIFFERENTIAL COMMENT MANUAL DIFFERENTIAL; EOSINOPHILS # (MANUAL) 0.1 10^3/uL (0-0.7); LYMPHOCYTES # (MANUAL) 0.7 10^3/uL (1.5-3.5); LYMPHOCYTES % (MANUAL) 11 %; METAMYELOCYTES % (MANUAL) 2 %; MONOCYTES # (MANUAL) 1.5 10^3/uL (0.0-1.0); NEUTROPHILS # (MANUAL) 3.8 10^3/uL (1.5-6.6); NEUTROPHILS % (MANUAL) 59 %; RBC MORPHOLOGY (MULTIPLE) NORMAL APPEARANCE (NORMAL)
[2018-01-11 14:38] LABS: PLATELET ESTIMATE, MANUAL DECREASED (<130,000) (NORMAL); PLATELET MORPHOLOGY NORMAL APPEARANCE (NORMAL)
[2018-01-11 16:04] VITALS: BP 117/72
== END 2018-01-11 16:25 | disposition short-term general hospital (02) ==
LOC: EDUNIT# → ED 12:47
DX: C78.89 Secondary malignant neoplasm of other digestive organs (principal); I48.91 Unspecified atrial fibrillation; I10 Essential (primary) hypertension; G62.9 Polyneuropathy, unspecified; Z86.73 Personal history of transient ischemic attack (TIA), and cerebral infarction without residual deficits; Z85.3 Personal history of malignant neoplasm of breast; Z96.659 Presence of unspecified artificial knee joint; Z96.649 Presence of unspecified artificial hip joint; Z92.21 Personal history of antineoplastic chemotherapy; Z92.3 Personal history of irradiation; Z79.82 Long term (current) use of aspirin
CPT/HCPCS: 36415; 80053; 83690; 84484; 85025; 93005; 96365; 96375; 99283; 99284; 99285

== ENCOUNTER 2018-01-11 16:29 | Outpatient (CLI) | payer MEDICARE, BC | END 2018-01-11 16:30 | disposition short-term general hospital (02) | LOC: EMS 16:29 | PROVIDERS: ATTEND Surgery | DX: R13.10 Dysphagia, unspecified (principal); R06.02 Shortness of breath | CPT/HCPCS: A0170; A0425; A0426 ==